=== PATIENT | male | born 1945 | race Caucasian/White ===

== ENCOUNTER 2016-12-16 19:31 | Inpatient (IN) | payer OTHER, MEDICARE ==
[~2016-12-16] VITALS: Ht 167.6 cm; Wt 122.3 kg
[2016-12-16 19:31] VITALS: BP 106/55; PULSE 79; PULSE 82; RESP 16; TEMP 99; O2SAT 95; O2SAT 98
[~2016-12-16 19:31] MED LIST: ALBU6.7H INH; ENOX30P SQ; ESCI10TA PO; FERR1TAB36 PO; GABA600T PO; HYDR-3133 PO; HYDR-3533 PO; LANTUS2P SQ; LISI40TA PO; METO50TA PO; MULTTAB62 PO; NOVORP2 SQ; PRIL20CA9 PO; TAMS0.4C4 PO; VANC1SOL3 PO; [UNRECOGNIZED DRUG - CODE] TOPICAL
[2016-12-16] MEDS ORDERED: SODIUM CHLOR 0.9% 1000 ML INJ 800 ML IV ONE (19:38)
[2016-12-16] MEDS ORDERED: SODIUM CHLOR 0.9% 1000 ML INJ 1,000 ML IV ONE (19:38)
[2016-12-16] MEDS ORDERED: metroNIDAZOLE 500 MG INJ 100 ML IV ONE (19:45)
--- NOTE | 2016-12-16 19:50 | PD ---
HPI Chief Complaint: Altered Mental Status Time Seen by Provider: 19:35 Travel History International Travel<30 days: No Contact w/Intl Traveler<30days: No Traveled to known affect area: No History of Present Illness HPI 71-year-old male with history of diabetes, chronic kidney disease, anemia, hyperlipidemia, chronic George, recent diagnosis of C. difficile on vancomycin, sent in from rehabilitation facility for evaluation of altered mental status, melena, abdominal pain and distention, and anemia with a hemoglobin of 5.7. The patient reports having abdominal discomfort. He is otherwise unwilling/ unable to provide any further history. PFSH Past Medical History Hx Anticoagulant Therapy: No Anemia: Yes Arthritis: Yes Asthma: No Autoimmune Disease: No Blood Disorders: No Anxiety: No Depression: No Heart Rhythm Problems: No Cancer: No Cardiovascular Problems: Yes (HTN) High Cholesterol: Yes Chemotherapy: No Chest Pain: No Congestive Heart Failure: No COPD: No Cerebrovascular Accident: No Diabetes: Yes (TYPE 2) Diminished Hearing: No Endocrine: Yes Gastrointestinal Disorders: Yes (GERD) GERD: Yes Genitourinary: No Headaches: No Hiatal Hernia: No Hypertension: Yes Immune Disorder: No Implanted Vascular Access Dvce: No Musculoskeletal: Yes (ARTHRITIS) Neurologic: No Psychiatric: Yes Reproductive: No Respiratory: Yes (ASTHMA) Integumentary: Yes (Stasis ulcer to BLE) Immunizations Current: Yes Migraines: No Pancreatitis: Yes Radiation Therapy: No Seizures: No Shingles: Yes (08/17/12) Sleep Apnea: No Thyroid Disease: No Ulcer: No Past Surgical History Abdominal Surgery: Yes (lap shirlene) Cardiac Surgery: No Cholecystectomy: Yes Ear Surgery: No Endocrine Surgery: No Eye Surgery: No Genitourinary Surgery: No Gynecologic Surgery: No Neurologic Surgery: No Oral Surgery: No Thoracic Surgery: No Other Surgery: Yes (Lap shirlene) Social History Alcohol Use: No Tobacco Use: No Substance Use: No Allergies-Medications (Allergen,Severity, Reaction): Coded Allergies: Azithromycin (Verified Allergy, Severe, Rash/hives, 12/16/16) Toradol (Verified Allergy, Severe, Hives, 12/16/16) Tramadol (Verified Allergy, Intermediate, RASH/HIVES, 12/16/16) Cipro (Verified Allergy, Unknown, 12/16/16) Ativan (Verified Adverse Reaction, Severe, Agitation, combative, 12/16/16) Flu Vaccine (Verified Adverse Reaction, Severe, Chest pain, 12/16/16) Reported Meds & Prescriptions Reported Meds & Active Scripts Active Lortab (Hydrocodone-Acetaminophen) 5-325 Mg Tab 1 Tab PO Q4H PRN Lovenox Inj (Enoxaparin Sodium) 30 Mg/0.3 Ml Syr 30 Mg SQ Q24H 10 Days Lantus Inj (Insulin Glargine) 100 Unit/Ml Inj 35 Units SQ BIDAC 90 Days Reported Florastor (Saccharomyces Boulardii) 250 Mg Cap 250 Mg PO BID Loperamide (Loperamide HCl) 2 Mg Cap 2 Mg PO DIRECTED PRN One capsule after each loose stool. Not to exceed 8 capsules per day. Doxycycline Hyclate 100 Mg Cap 100 Mg PO BID Colace (Docusate Sodium) 100 Mg Cap 100 Mg PO TID PRN Bumex (Bumetanide) 1 Mg Tab 1 Mg PO BID Aspirin 81 Mg Chew 81 Mg CHEW DAILY Balmex Adult Care (Zinc Oxide (Topical)) 11.3 % Cre 1 Applic TOPICAL Q8HR Apply to excoriated area on sacrum q-shift First-Vancomycin 50 Liq (Vancomycin HCl) 50 Mg/Ml Danielle 250 Mg PO QID 10 Days Proventil Hfa 6.7 GM Inh (Albuterol Sulfate) 90 Mcg/Act Aer 2 Puff INH Q6H PRN Prilosec (Omeprazole) 20 Mg Cap 20 Mg PO DAILY Multi-Vitamin/Minerals (Multiple Vitamins W/ Minerals) 1 Tab Tab 1 Tab PO DAILY Iron (Ferrous Sulfate) 325 Mg Tab 325 Mg PO BID In the am & at bedtime Escitalopram (Escitalopram Oxalate) 10 Mg Tab 10 Mg PO DAILY Hydroxyzine HCl 25 Mg Tab 25 Mg PO Q6HR PRN Novolin R Inj (Insulin Human Regular) 1,000 Unit/10 Ml Vial 0 SQ DIRECTED Sliding Scale As Directed: 60-149=0 UNITS, 150-200=2 UNITS, 201-250=4 UNITS, 251-300=6 UNITS, 301-350=8 UNITS, 351-400=10 UNITS, 401-450=12 UNITS, 451-500=14 UNITS, 501+=18 UNITS & CALL Lisinopril 40 Mg Tab 40 Mg PO DAILY Metoprolol Tartrate 50 Mg Tab 50 Mg PO BID Gabapentin 600 Mg Tab 600 Mg PO TID Tamsulosin (Tamsulosin HCl) 0.4 Mg Cap 0.4 Mg PO HS Review of Systems Except as stated in HPI: all other systems reviewed are Neg Physical Exam Narrative GENERAL: Well-developed, well-nourished, obese, awake, alert, no acute distress. SKIN: Warm and dry. Diffuse pallor. HEAD: Atraumatic. Normocephalic. EYES: Pupils equal and round. No scleral icterus. No injection or drainage. ENT: No nasal bleeding or discharge. Mucous membranes pink and moist. NECK: Trachea midline. No JVD. No nuchal rigidity. CARDIOVASCULAR: Tachycardic, regular. RESPIRATORY: No accessory muscle use. Clear to auscultation. Breath sounds equal bilaterally. GASTROINTESTINAL: Abdomen soft, nondistended. Mild diffuse tenderness without peritoneal signs. Heme positive black stool. MUSCULOSKELETAL: No obvious deformities. No clubbing. No cyanosis. Mild bilateral pedal edema with wound dressings in place, mild erythema, no warmth, no purulence. NEUROLOGICAL: Awake and alert. No obvious cranial nerve deficits. Motor grossly within normal limits. Normal speech. Data Data Last Documented VS Vital Signs Date Time Temp Pulse Resp B/P Pulse Ox O2 Delivery O2 Flow Rate FiO2 12/16/16 19:31 99.0 82 16 106/55 95 12/16/16 19:31 Nasal Cannula 2 Orders Complete Blood Count With Diff (12/16/16 19:38) Comprehensive Metabolic Panel (12/16/16 19:38) Prothrombin Time / Inr (Pt) (12/16/16 19:38) Act Partial Throm Time (Ptt) (12/16/16 19:38) Lactic Acid Sepsis Protocol (12/16/16 19:38) Lipase (12/16/16 19:38) Urinalysis - C+S If Indicated (12/16/16 19:38) Blood Culture (12/16/16 19:38) Chest, Single Ap (12/16/16 19:38) Ecg Monitoring (12/16/16 19:38) Iv Access Insert/Monitor (12/16/16 19:38) Oximetry (12/16/16 19:38) Oxygen Administration (12/16/16 19:38) Sodium Chlor 0.9% 1000 Ml Inj (Ns 1000 M (12/16/16 19:38) Sodium Chlor 0.9% 1000 Ml Inj (Ns 1000 M (12/16/16 19:38) Ct Abd/Pel W/O Iv Contrast (12/16/16 ) Type And Screen (12/16/16 19:38) C Diff Toxin Pcr (12/16/16 19:38) Metronidazole 500 Mg Inj (Flagyl 500 Mg (12/16/16 19:45) Ct Brain W/O Iv Contrast(Rout) (12/16/16 ) Ceftriaxone Inj (Rocephin Inj) (12/16/16 20:15) Urine Culture (12/16/16 20:00) Admit Order (Ed Use Only) (12/16/16 21:01) Red Blood Cells (Rbc) (12/16/16 21:03) Blood Product Administration .UPON TRANSFUSION (12/16/16 21:03) Sodium Chlor 0.9% 250 Ml Inj (Ns 250 Ml (12/16/16 21:15) Labs Laboratory Tests Test 12/16/16 12/16/16 19:50 20:00 White Blood Count 6.3 TH/MM3 Red Blood Count 2.18 MIL/MM3 Hemoglobin 6.2 GM/DL Hematocrit 18.7 % Mean Corpuscular Volume 85.8 FL Mean Corpuscular Hemoglobin 28.2 PG Mean Corpuscular Hemoglobin 32.9 % Concent Red Cell Distribution Width 19.7 % Platelet Count 104 TH/MM3 Mean Platelet Volume 8.8 FL Neutrophils (%) (Auto) 66.5 % Lymphocytes (%) (Auto) 20.0 % Monocytes (%) (Auto) 10.7 % Eosinophils (%) (Auto) 1.9 % Basophils (%) (Auto) 0.9 % Neutrophils # (Auto) 4.2 TH/MM3 Lymphocytes # (Auto) 1.3 TH/MM3 Monocytes # (Auto) 0.7 TH/MM3 Eosinophils # (Auto) 0.1 TH/MM3 Basophils # (Auto) 0.1 TH/MM3 CBC Comment AUTO DIFF Prothrombin Time 15.3 SEC Prothromb Time International 1.4 RATIO Ratio Activated Partial 33.5 SEC Thromboplast Time Sodium Level 147 MEQ/L Potassium Level 3.5 MEQ/L Chloride Level 108 MEQ/L Carbon Dioxide Level 29.9 MEQ/L Anion Gap 9 MEQ/L Blood Urea Nitrogen 70 MG/DL Creatinine 1.75 MG/DL Estimat Glomerular Filtration 39 ML/MIN Rate Random Glucose 206 MG/DL Lactic Acid Level 1.6 mmol/L Calcium Level 8.1 MG/DL Aspartate Amino Transf 90 U/L (AST/SGOT) Albumin 1.8 GM/DL Lipase 411 U/L Blood Type O POSITIVE Antibody Screen NEGATIVE Urine Color YELLOW Urine Turbidity CLOUDY Urine pH 8.0 Urine Specific [place] 1.018 Urine Protein 100 mg/dL Urine Glucose (UA) NEG mg/dL Urine Ketones NEG mg/dL Urine Occult Blood NEG Urine Nitrite POS Urine Bilirubin NEG Urine Urobilinogen LESS THAN 2.0 MG/DL Urine Leukocyte Esterase LARGE Urine RBC 1 /hpf Urine WBC 19 /hpf Urine WBC Clumps FEW Urine Squamous Epithelial <1 /hpf Cells Urine Uric Acid Crystals OCC /hpf Urine Bacteria MOD /hpf Urine Mucus FEW /lpf Microscopic Urinalysis Comment CATH-CULTURE IND MDM Medical Decision Making Medical Screen Exam Complete: Yes Emergency Medical Condition: Yes Medical Record Reviewed: Yes Differential Diagnosis Sepsis, C. difficile colitis, anemia, GI bleed, intra-abdominal infection Narrative Course Vital signs reviewed. CBC is remarkable for hemoglobin 6.2, hematocrit 18.7 CMP is remarkable for sodium 147, BUN 70, creatinine 1.75, GFR 39. Lactic acid is 1.6. UA suggestive of UTI. Chest x-ray shows bilateral hilar infiltrates. The patient was given a dose of IV Flagyl for history of C. difficile as well as IV Rocephin for her UA findings and chest x-ray findings. CT abdomen pelvis: CONCLUSION: 1. Noncontrast CT concerning for hepatic metastatic disease. Also suspected metastatic disease or renal failure associated changes of the bones. 2. No obstruction or acute inflammatory changes seen of the gastrointestinal tract. I don't convincingly see a GI tract mass. 3. Stable low and intermediate attenuation masses of both kidneys. Please see above. 4. Right greater the left consolidation and pleural fluid of the visualized lung bases. CT head shows no acute intracranial abnormality. 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 Paranasal sinusitis as well. Patient will be transfused 2 units of packed red blood cells. Case discussed with the patient's primary care physician Dr. Stallings who will admit the patient to his service. Patient and the patient's were made aware of all findings and plan for admission. [facility] Point of Care Internal Pos. & Neg. Controls: Passed Fecal Specimen Occult Blood: Positive Comment Heme-positive black stool. Diagnosis Primary Impression: Sepsis Qualified Code: A41.9 - Sepsis, due to unspecified organism Additional Impressions: Anemia Qualified Code: D64.9 - Anemia, unspecified type Pneumonia Qualified Code: J18.9 - Pneumonia of both lungs due to infectious organism, unspecified part of lung GI bleed Qualified Code: K92.1 - Gastrointestinal hemorrhage with melena Metastatic disease Mastoiditis Qualified Code: H70.92 - Mastoiditis, left Admitting Information Admitting Physician Requests: Admit Jose Jasmine MD Dec 16, 2016 19:50
--- NOTE | 2016-12-16 20:04 | RADRPT ---
EXAM DATE/TIME: 12/16/2016 19:50 [facility] COMPARISON: CHEST SINGLE AP, November 08, 2016, 5:02. INDICATIONS : Fever MEDICAL HISTORY : Hypertension. Gastroesophageal reflux disease. SURGICAL HISTORY : None. ENCOUNTER: Initial ACUITY: 1 day PAIN SCORE: Non-responsive. LOCATION: Bilateral chest FINDINGS: There are mild bilateral perihilar infiltrates. No pleural effusion. No pneumothorax. Heart size stab le, upper limits of normal. CONCLUSION: Perihilar infiltrates on both sides. Sunny Zamarripa MD on December 16, 2016 at 20:02 Board Certified Radiologist. This report was verified electronically.
[2016-12-16] MEDS ORDERED: DOXY100C PO (20:12)
[2016-12-16] MEDS ORDERED: FLOR250C PO (20:12)
[2016-12-16] MEDS ORDERED: LOPE2CAP PO (20:12)
[2016-12-16] MEDS ORDERED: BUME1TAB26 PO (20:12)
[2016-12-16] MEDS ORDERED: COLA100C3 PO (20:12)
[2016-12-16] MEDS ORDERED: ASPI81CH CHEW (20:12)
[2016-12-16] MEDS ORDERED: cefTRIAXone INJ 1,000 MG in SODIUM CHLORIDE 0.9% INJ 100 ML IV ONE (20:15)
[2016-12-16 20:28] LABS: AUTOMATED NEUTROPHIL # 4.2 TH/MM3 (1.8-7.7); BASOPHIL # 0.1 TH/MM3 (0-0.2); BASOPHIL % 0.9 % (0.0-2.0); EOSINOPHIL # 0.1 TH/MM3 (0-0.4); EOSINOPHIL % 1.9 % (0.0-4.0); LYMPHOCYTE # 1.3 TH/MM3 (1.0-4.8); MEAN CELL VOLUME 85.8 FL (80.0-100.0); MEAN CORPUSCULAR HEMOGLOBIN 28.2 PG (27.0-34.0); MEAN CORPUSCULAR HGB CONC 32.9 % (32.0-36.0); MONO % 10.7 % (0.0-8.0); NEUT % 66.5 % (16.0-70.0); PLATELET COUNT 104 TH/MM3 (150-450); RED BLOOD COUNT 2.18 MIL/MM3 (4.50-5.90); RED CELL DISTRIBUTION WIDTH 19.7 % (11.6-17.2); WHITE BLOOD COUNT 6.3 TH/MM3 (4.0-11.0)
[2016-12-16 20:33] LABS: BACTERIA, URINE MOD /hpf; BLOOD, URINE NEG (NEG); COMMENT (UR) CATH-CULTURE IND; CULTURE IF INDICATED CATH CULTURE IND; GLUCOSE,URINE NEG (NEG); KETONE, URINE NEG (NEG); MUCUS URINE FEW /lpf (OCC); NITRITE,URINE POS (NEG); SQUAMOUS EPITHELIAL CELL URINE <1 /hpf (0-5); URIC ACID CRYSTALS, URINE OCC /hpf; URINE COLOR YELLOW (YELLW/STRAW)
[2016-12-16 20:33] LABS: HEMO FLAGS AUTO DIFF
[2016-12-16 20:35] LABS: APTT (PATIENT) 33.5 SEC (24.3-30.1); HEMATOCRIT 18.7 % (39.0-51.0); INTERNATIONAL NORMALIZED RATIO 1.4 RATIO; PROTHROMBIN TIME - PATIENT 15.3 SEC (9.8-11.6)
[2016-12-16 20:50] LABS: ANION GAP 9 MEQ/L (5-15); AST (GOT) 90 U/L (15-37); BICARBONATE 29.9 MEQ/L (21.0-32.0); BLOOD UREA NITROGEN 70 MG/DL (7-18); CHLORIDE 108 MEQ/L (98-107); GLOMERULAR FILTRATION RATE 39 ML/MIN (>89); POTASSIUM 3.5 MEQ/L (3.5-5.1); SODIUM (NA) 147 MEQ/L (136-145)
--- NOTE | 2016-12-16 20:51 | RADRPT ---
EXAM DATE/TIME: 12/16/2016 20:37 [facility] COMPARISON: No previous studies available for comparison. INDICATIONS : Altered mental status RADIATION DOSE: 45.03 CTDIvol (mGy) MEDICAL HISTORY : Hypertension. SURGICAL HISTORY : Cholecystectomy. ENCOUNTER: Initial ACUITY: 1 day PAIN SCALE: 0/10 LOCATION: Bilateral cranial TECHNIQUE: Multiple contiguous axial images were obtained of the head. Using automated exposure control and adj ustment of the mA and/or kV according to patient size, radiation dose was kept as low as reasonably a chievable to obtain optimal diagnostic quality images. FINDINGS: CEREBRUM: The ventricles are normal for age. No evidence of midline shift, mass lesion, hemorrhage or acute in farction. No extra-axial fluid collections are seen. POSTERIOR FOSSA: The cerebellum and brainstem are intact. The 4th ventricle is midline. The cerebellopontine angle i s unremarkable. EXTRACRANIAL: Mild sclerosis left mastoid bone and small fluid in the left mastoid air cells. There is mucoperioste al thickening of the sinuses, preferentially ethmoid and left sphenoid air cells. SKULL: The calvaria is intact. No evidence of skull fracture. CONCLUSION: 1. No acute intracranial abnormality. 2. 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 There is paranasal sinusitis as well, ethmoid and left sphenoid predominant Sunny Zamarripa MD on December 16, 2016 at 20:47 Board Certified Radiologist. This report was verified electronically.
--- NOTE | 2016-12-16 21:03 | RADRPT ---
EXAM DATE/TIME: 12/16/2016 20:42 [facility] COMPARISON: CT ABDOMEN & PELVIS W/O CONTRAST, November 06, 2016, 5:45. INDICATIONS : Septic, blood in stool ORAL CONTRAST: No oral contrast ingested. RADIATION DOSE: 12.52 CTDIvol (mGy) MEDICAL HISTORY : Hypertension. Pancreatitis. Renal disease, end stage. SURGICAL HISTORY : Cholecystectomy. ENCOUNTER: Initial ACUITY: 1 day PAIN SCALE: 3/10 LOCATION: Diffuse abdomen TECHNIQUE: Volumetric scanning of the abdomen and pelvis was performed. Using automated exposure control and ad justment of the mA and/or kV according to patient size, radiation dose was kept as low as reasonably achievable to obtain optimal diagnostic quality images. FINDINGS: Marked heterogeneity has developed of the liver and of concern for numerous vague hypodense masses me asuring up to 5 cm in size. Liver is about 23 cm cranial caudal, previously 19 cm. No acute abnormality seen spleen, pancreas, adrenal glands or kidneys. Multiple low and intermediate attenuation masses are again seen of both kidneys, not significantly changed and presumably simple an d debris-filled cysts. No obstruction or acute inflammatory changes are seen of the gastrointestinal tract. No perceptible m ass. Decompressed urinary bladder containing a George and debris. Small right and tiny left pleural effusions are present and there is mild atelectasis/consolidation o f the visualized lung bases. Diffuse mottled sclerosis seen of the visualized osseous structures whic h appears changed. CONCLUSION: 1. Noncontrast CT concerning for hepatic metastatic disease. Also suspected metastatic disease or sarita al failure associated changes of the bones. 2. No obstruction or acute inflammatory changes seen of the gastrointestinal tract. I don't convincin gly see a GI tract mass. 3. Stable low and intermediate attenuation masses of both kidneys. Please see above. 4. Right greater the left consolidation and pleural fluid of the visualized lung bases. Sunny Zamarripa MD on December 16, 2016 at 20:53 Board Certified Radiologist. This report was verified electronically.
[2016-12-16 21:05] LABS: ALKALINE PHOSPHATASE 1060 U/L (45-117); ALT (GPT) 65 U/L (12-78); TOTAL BILIRUBIN ADULT 0.5 MG/DL (0.2-1.0)
[2016-12-16] MEDS ORDERED: SODIUM CHLOR 0.9% 250 ML INJ 250 ML IV ONE (21:15)
[2016-12-16 21:16] LABS: BANDS 9 % (0-6); CORRECTED NUCLEATED RBC 2 /100 WBC (0-0); EOSINOPHILS 1 % (0-4); METAMYELOCYTES 9 % (0-1); MYELOCYTES 1 % (0-0); NEUTROPHIL # MANUAL DIFF 4.5 TH/MM3 (1.8-7.7); POLYS (SEG NEUTROPHILS) 52 % (16-70); WBC DIFF SAMPLE 100
[2016-12-16 21:19] LABS: KERATOCYTES OCC (NORMAL); OVALOCYTES 1+ (NORMAL); PLATELET ESTIMATE SMEAR LOW (NORMAL); PLATELET MORPHOLOGY NORMAL (NORMAL); SCAN/DIFF FINAL DIFF MANUAL; SPHEROCYTES 1+ (NORMAL)
[2016-12-16] MEDS ORDERED: ACETAMINOPHEN/HYDROcodone 325 MG/5 MG TAB PO PRN (22:15)
[2016-12-16] MEDS ORDERED: SODIUM CHLOR 0.9% 1000 ML INJ 1,000 ML IV SCH (22:17)
[2016-12-16 22:30] VITALS: BP 116/53; PULSE 75; RESP 14; TEMP 98.5; O2SAT 100
[2016-12-16] MEDS ORDERED: ONDANSETRON HCL 4 MG/2 ML VIAL IVP PRN (22:30)
[2016-12-16] MEDS ORDERED: ACETAMINOPHEN 325 MG TAB PO PRN (22:30)
[2016-12-16] MEDS ORDERED: cloNIDine HCL 0.1 MG TAB PO PRN (22:30)
[2016-12-16] MEDS ORDERED: SODIUM CHLORIDE 0.9% FLUSH 5 ML FLUSH FLUSH PRN (22:30)
[2016-12-16] MEDS ORDERED: MAGNESIUM HYDROXIDE SUSP 30 ML CUP PO PRN (22:30)
[2016-12-16] MEDS ORDERED: NALOXONE HCL 0.4 MG/ML AMP IV PRN (22:30)
[2016-12-16] MEDS ORDERED: SENNOSIDES 8.6 MG TAB PO PRN (22:30)
[2016-12-16] MEDS ORDERED: ZOLPIDEM TARTRATE 5 MG TAB PO PRN (22:30)
[2016-12-16 22:45] VITALS: BP 119/60; PULSE 80; RESP 16; O2SAT 98
[2016-12-16 23:00] VITALS: BP 108/58; PULSE 78; RESP 16; O2SAT 98
[2016-12-16 23:15] VITALS: BP 115/65; PULSE 80; RESP 16; O2SAT 98
[2016-12-16 23:30] VITALS: BP 119/56; PULSE 78; RESP 16; O2SAT 98
[2016-12-16] MEDS: SODIUM CHLOR 0.45% 1000 ML INJ 1,000 ML IV SCH (23:32)
[2016-12-16] MEDS: PANTOPRAZOLE SODIUM 40 MG VIAL IV PUSH SCH (23:33)
[2016-12-17] VITALS (14 sets, daily range): BP systolic 110–151; BP diastolic 56–69; PULSE 50–85; RESP 14–21; TEMP 97.6–99.7; O2SAT 95–100
[2016-12-17] MEDS: PIPERACIL-TAZO 3.375 GM PREMIX 50 ML IV SCH ×5 (00:08→23:55)
[2016-12-17] MEDS ORDERED: LEVOFLOXACIN 750 MG PREMIX INJ 150 ML IV SCH (01:00)
[2016-12-17] MEDS ORDERED: SODIUM CHLORIDE 0.9% FLUSH 5 ML FLUSH IVF PRN (01:15)
[2016-12-17] MEDS: metroNIDAZOLE 500 MG INJ 100 ML IV SCH ×3 (04:00→20:22)
[2016-12-17] MEDS: ZINC OXIDE 20% OINT 30 GM TUBE TOPICAL SCH ×3 (06:00→20:20)
[2016-12-17] MEDS: RESP: ALBUTEROL 2.5 MG/IPRATROPIUM 0.5 MG NEB (SCH) NEB ×3 (07:55→19:37)
--- NOTE | 2016-12-17 08:50 | HHI.HP ---
History of Present Illness Primary Care Physician [facility] Admission Diagnosis sepsis, AMS, anemia Diagnoses: (1) Malignant hypertension (2) Urinary retention (3) Acute renal failure (4) Generalized weakness (5) Hyperlipidemia (6) Leukocytosis (7) UTI (urinary tract infection) (8) Obesity (9) HTN (hypertension) (10) Chronic venous hypertension with ulcer and inflammation (11) Diabetes type 2, uncontrolled (12) DOLORES (acute kidney injury) (13) Bladder outlet obstruction (14) Bilateral lower leg cellulitis (15) Hyponatremia (16) GERD (gastroesophageal reflux disease) (17) Bilateral lower extremity edema (18) Weakness (19) Mastoiditis (20) Pneumonia (21) GI bleed (22) Metastatic disease (23) Anemia History of Present Illness 71 Y CM. RECURRENT ADMITS AND NONCOMPLIANCE WITH CARE. PT HAS HAD ONGOING LEG CELLULITIS DUE TO MASSIVE EDEMA FROM REFUSAL TO ELEVATE LEGS. PT REFUSED GI WORKUPS. RECURRENT ANEMIA WITH GIB AND TRANSFUSION OF PRBC'S. PT HAS BEEN AT [facility] AND HAS HAD A GENERALIZED DECLINE. AMS NOTED AT THE SNF AND LABS AT SNF SHOWED HGB 6 APPROX AND PT SENT TO ER FOR TRANSFUSION. PT FOUND W METS DZ AND LYTE ABNORMALITIES, PNA AND UTI. RECENT ONGOING C DIF WELL. I WAS CALLED FOR ADMISSION TO THE ICU. Review of Systems ROS Limitations: Clinical Condition, Altered Mental Status, Uncooperative, Poor Historian Other NEGATIVE FOURTEEN POINT ROS EXCEPT ABOVE Past Family Social History Allergies: Coded Allergies: Azithromycin (Verified Allergy, Severe, Rash/hives, 12/16/16) Toradol (Verified Allergy, Severe, Hives, 12/16/16) Tramadol (Verified Allergy, Intermediate, RASH/HIVES, 12/16/16) Cipro (Verified Allergy, Unknown, 12/16/16) Ativan (Verified Adverse Reaction, Severe, Agitation, combative, 12/16/16) Flu Vaccine (Verified Adverse Reaction, Severe, Chest pain, 12/16/16) Past Medical History DM PAD DOLORES ANEMIA EDEMA Past Surgical History NC Active Ordered Medications Current Medications Medications (Trade) Dose Ordered Sig/Siomara Route Start Time Stop Time Status Last Admin (NS 250 ml Inj) 250 ml @ 15 mls/hr ONCE ONCE IV 12/16/16 21:15 12/17/16 13:54 12/16/16 23:33 (Bumetanide) 1 mg BID PO 12/17/16 09:00 (Flomax) 0.4 mg HS PO 12/17/16 21:00 (VANCOMYCIN for oral use only) 250 mg QID PO 12/17/16 09:00 (Zinc Oxide 20% Oint) 1 applic Q8HR TOPICAL 12/17/16 06:00 (NS Flush) 2 ml UNSCH PRN FLUSH 12/16/16 22:30 (NS Flush) 2 ml BID FLUSH 12/17/16 09:00 (Tylenol) 650 mg Q4H PRN PO 12/16/16 22:30 (Zofran Inj) 4 mg Q6H PRN IVP 12/16/16 22:30 (Milk Of Magnesia Liq) 30 ml Q12H PRN PO 12/16/16 22:30 (Senokot) 17.2 mg Q12H PRN PO 12/16/16 22:30 (Ambien) 5 mg HS PRN PO 12/16/16 22:30 (Narcan Inj) 0.4 mg UNSCH PRN IV 12/16/16 22:30 (Catapres) 0.1 mg Q6H PRN PO 12/16/16 22:30 ([place] 5-325 Mg) 1 tab Q4H PRN PO 12/16/16 22:30 Pantoprazole Sodium 40 mg 40 mg Q24H IV PUSH 12/16/16 23:00 12/16/16 23:33 Metronidazole 100 ml @ 100 mls/hr Q8H IV 12/17/16 04:00 12/17/16 04:00 Sodium Chloride 1,000 ml @ 42 mls/hr [id number] IV 12/16/16 22:45 12/16/16 23:32 (Zosyn 3.375 Gm Premix) 50 ml @ 100 mls/hr Q6H IV 12/17/16 00:00 12/17/16 06:00 (NS Flush) 2 ml BID IVF 12/17/16 09:00 (NS Flush) 2 ml UNSCH PRN IVF 12/17/16 01:15 Family History NC Social History NO E/T/D; DISABLED, Physical Exam Vital Signs Vital Signs Date Time Temp Pulse Resp B/P Pulse Ox O2 Delivery O2 Flow Rate FiO2 12/17/16 08:03 100 Nasal Cannula 2.00 12/17/16 06:00 73 12/17/16 04:00 70 12/17/16 04:00 98.0 70 18 131/61 100 12/17/16 02:30 71 16 121/59 95 Nasal Cannula 2 12/17/16 02:00 96 Nasal Cannula 2.00 12/17/16 01:30 98.9 50 14 119/58 96 Nasal Cannula 2 12/17/16 01:08 98.9 79 16 138/63 96 Nasal Cannula 2 12/16/16 23:30 78 16 119/56 98 Nasal Cannula 2 12/16/16 23:15 80 16 115/65 98 Nasal Cannula 2 12/16/16 23:00 78 16 108/58 98 Nasal Cannula 2 12/16/16 22:45 80 16 119/60 98 Nasal Cannula 2 12/16/16 22:30 98.5 75 14 116/53 100 Nasal Cannula 2 12/16/16 19:31 99.0 82 16 106/55 95 12/16/16 19:31 82 16 98 Nasal Cannula 2 12/16/16 19:31 98 Nasal Cannula 2 12/16/16 19:31 79 16 106/55 98 Nasal Cannula 2 Physical Exam GENERAL: This is a chronically ill appearing, morbidly obese, lethargic, arouses to voice SKIN: cellulitic and stasis changes bilateral lower extr's HEAD: Atraumatic. Normocephalic. No temporal or scalp tenderness. EYES: Pupils equal round and reactive. Extraocular motions intact. No scleral icterus. No injection or drainage. ENT: Nose without bleeding, purulent drainage or septal hematoma. Throat without erythema, tonsillar hypertrophy or exudate. Uvula midline. Airway patent. NECK: Trachea midline. No JVD or lymphadenopathy. Supple, nontender, no meningeal signs. CARDIOVASCULAR: Regular rate and rhythm without murmurs, gallops, or rubs. RESPIRATORY: Clear to auscultation. Breath sounds equal bilaterally. No wheezes , rales, or rhonchi. GASTROINTESTINAL: Abdomen soft, non-tender, nondistended. No hepato-splenomegaly , or palpable masses. No guarding. MUSCULOSKELETAL: Extremities without clubbing, cyanosis, or edema. No joint tenderness, effusion, or edema noted. No calf tenderness. Negative Homans sign bilaterally. NEUROLOGICAL: drowsy, Cranial nerves II through XII intact. Motor and sensory grossly within normal limits. 1 out of 5 muscle strength in all muscle groups. Normal speech. Laboratory Laboratory Tests Test 12/16/16 12/16/16 12/16/16 19:50 20:00 21:03 White Blood Count 6.3 Red Blood Count 2.18 Hemoglobin 6.2 Hematocrit 18.7 Mean Corpuscular Volume 85.8 Mean Corpuscular Hemoglobin 28.2 Mean Corpuscular Hemoglobin 32.9 Concent Red Cell Distribution Width 19.7 Platelet Count 104 Mean Platelet Volume 8.8 Neutrophils (%) (Auto) 66.5 Lymphocytes (%) (Auto) 20.0 Monocytes (%) (Auto) 10.7 Eosinophils (%) (Auto) 1.9 Basophils (%) (Auto) 0.9 Neutrophils # (Auto) 4.2 Lymphocytes # (Auto) 1.3 Monocytes # (Auto) 0.7 Eosinophils # (Auto) 0.1 Basophils # (Auto) 0.1 CBC Comment AUTO DIFF Differential Total Cells 100 Counted Neutrophils % (Manual) 52 Band Neutrophils % 9 Lymphocytes % 22 Monocytes % 6 Eosinophils % 1 Neutrophils # (Manual) 4.5 Metamyelocytes 9 Myelocytes 1 Nucleated Red Blood Cells 2 Differential Comment FINAL DIFF MANUAL Platelet Estimate LOW Platelet Morphology Comment NORMAL Basophilic Stippling FAINT Spherocytes 1+ Ovalocytes 1+ Keratocytes OCC Prothrombin Time 15.3 Prothromb Time International 1.4 Ratio Activated Partial 33.5 Thromboplast Time Sodium Level 147 Potassium Level 3.5 Chloride Level 108 Carbon Dioxide Level 29.9 Anion Gap 9 Blood Urea Nitrogen 70 Creatinine 1.75 Estimat Glomerular Filtration 39 Rate Random Glucose 206 Lactic Acid Level 1.6 Calcium Level 8.1 Total Bilirubin 0.5 Aspartate Amino Transf 90 (AST/SGOT) Alanine Aminotransferase 65 (ALT/SGPT) Alkaline Phosphatase 1060 Total Protein 6.3 Albumin 1.8 Lipase 411 Blood Type O POSITIVE Antibody Screen NEGATIVE Urine Color YELLOW Urine Turbidity CLOUDY Urine pH 8.0 Urine Specific [place] 1.018 Urine Protein 100 Urine Glucose (UA) NEG Urine Ketones NEG Urine Occult Blood NEG Urine Nitrite POS Urine Bilirubin NEG Urine Urobilinogen LESS THAN 2.0 Urine Leukocyte Esterase LARGE Urine RBC 1 Urine WBC 19 Urine WBC Clumps FEW Urine Squamous Epithelial <1 Cells Urine Uric Acid Crystals OCC Urine Bacteria MOD Urine Mucus FEW Microscopic Urinalysis Comment CATH-CULTURE IND Crossmatch Leukocyte-Reduced Red Blood Cells Blood Bank Comment Date/Time Procedure Status Source Growth 12/16/16 20:00 Urine Culture Worksheet Urine Catheterized Urine Pending 12/16/16 19:55 Aerobic Blood Culture Received Blood Peripheral Pending 12/16/16 19:55 Anaerobic Blood Culture Received Blood Peripheral Pending Result Diagram: 12/16/16194912/16/16 1950 Imaging Last 48 hours Impressions Chest X-Ray 12/16/161937 Signed Impressions: Service Date/Time: Friday, December 16, 2016 19:50 - CONCLUSION: Perihilar infiltrates on both sides. Sunny Zamarripa MD Head CT 12/16/16 0000 Signed Impressions: Service Date/Time: Friday, December 16, 2016 20:37 - CONCLUSION: 1. No acute intracranial abnormality. 2. 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 There is paranasal sinusitis as well, ethmoid and left sphenoid predominant Sunny Zamarripa MD Abdomen/Pelvis CT 12/16/16 0000 Signed Impressions: Service Date/Time: Friday, December 16, 2016 20:42 - CONCLUSION: 1. Noncontrast CT concerning for hepatic metastatic disease. Also suspected metastatic disease or renal failure associated changes of the bones. 2. No obstruction or acute inflammatory changes seen of the gastrointestinal tract. I don't convincingly see a GI tract mass. 3. Stable low and intermediate attenuation masses of both kidneys. Please see above. 4. Right greater the left consolidation and pleural fluid of the visualized lung bases. Sunny Zamarripa MD Last 24 hours Impressions Chest X-Ray 12/16/161937 Signed Impressions: Service Date/Time: Friday, December 16, 2016 19:50 - CONCLUSION: Perihilar infiltrates on both sides. Sunny Zamarripa MD Assessment and Plan Problem List: (1) GI bleed Status: Acute (2) Pneumonia Status: Acute (3) Mastoiditis Status: Acute (4) Bilateral lower leg cellulitis Status: Resolved (5) Malignant hypertension Status: Resolved (6) Urinary retention Status: Acute (7) Acute renal failure Status: Acute (8) Generalized weakness Status: Acute (9) CRF (chronic renal failure) Status: Chronic (10) UTI (urinary tract infection) Status: Acute (11) Obesity Status: Chronic (12) HTN (hypertension) Status: Chronic (13) Chronic venous hypertension with ulcer and inflammation Status: Chronic (14) Diabetes type 2, uncontrolled Status: Chronic (15) Urinary tract infection Status: Acute (16) Abdominal pain Status: Acute (17) Metastatic disease Status: Acute (18) Anemia Status: Acute (19) Weakness Status: Acute Assessment and Plan AMS FTT LIVER METS ?COLON CA ?RENAL METS GIB BLOOD LOSS ANEMIA UTI HCAP DM BLE CELLULITIS PLAN: IV ABX IVF BLOOD CULTURES UA C/S PROTONIX IV TRANSFUSE PRBC'S INSULIN PALLIATIVE CONSULT ONCOLOGY CONSULT GI CONSULT AM LABS SEE MY ORDERS PLEASE. INPT ADMIT FOR THE ABOVE DX AND PLAN. EXPECT 5 D INPT STAY. PT WOULD W/O INPT ADMIT. DC BACK TO SNF PLANNED, NEEDS HOSPICE YET PT AND HAVE HAD POOR UNDERSTANDING OF HIS MULTIPLE SEVERE CHRONIC ILLNESSES COMPLICATED BY HIS NONCOMPLIANCE. Problem Qualifiers (1) Mastoiditis: Qualified Code: H70.92 - Mastoiditis, left (2) Pneumonia: Qualified Code: J18.9 - Pneumonia of both lungs due to infectious organism, unspecified part of lung (3) GI bleed: Qualified Code: K92.1 - Gastrointestinal hemorrhage with melena (4) Anemia: Qualified Code: D64.9 - Anemia, unspecified type Yon Stallings MD Dec 17, 2016 08:50
[2016-12-17] MEDS ORDERED: DEXTROSE 50% IN WATER 50 ML VIAL(D50) IV PUSH PRN (09:00)
[2016-12-17] MEDS: VANCOMYCIN 500 MG VIAL (FOR ORAL USE ONLY) PO SCH ×5 (09:00→20:20)
[2016-12-17] MEDS: SODIUM CHLORIDE 0.9% FLUSH 5 ML FLUSH IVF SCH ×2 (09:00→20:22)
[2016-12-17] MEDS ORDERED: METOPROLOL TARTRATE 50 MG TAB PO SCH (09:00)
[2016-12-17] MEDS: BUMETANIDE 1 MG TAB PO SCH ×3 (09:00→20:22)
[2016-12-17] MEDS ORDERED: GLUCAGON 1 MG/ML VIAL OTHER PRN (09:00)
[2016-12-17] MEDS: SODIUM CHLORIDE 0.9% FLUSH 5 ML FLUSH FLUSH SCH ×2 (09:00→20:22)
--- NOTE | 2016-12-17 09:10 | PD.CONS ---
HPI History of Present Illness This is a 71 year old male patient with past medical history of chronic anemia, CKD, poorly controlled DM, non compliance with medical treatment, metabolic encephalopathy, CAD, bilateral leg cellulitis, hypertension, obesity, chronic George catheter, neuropathy, depression, recent diagnosis of C. difficile on vancomycin, sent in from rehabilitation facility for evaluation of altered mental status, melena, abdominal pain and distention, and anemia with a hemoglobin of 5.7. Patient was seen by our GI services at a recent admission in October of last year, at that time he refused any GI work up including EGD/ Colonoscopy. Patient never had EGD/Colonoscopy, and he still refusing any GI work up. Patient is very bad historian, not offering much details, I was hardly able to get him to open his eyes during the entire interview. Patient himself denies any heartburn, reflux, vomiting, hematemesis, abdominal pain, bowel changes, constipation, diarrhea, melena, or hematochezia. Discussed with patient in lengthy the need for EGD/Colonoscopy, and the rationale for this but he is not interested at this time. Of note, during the previous encounter, he had work up done for the elevation in ALP, this revealed negative hepatitis panel, negative PABLITO, ASMA, AMA, and celiac panel. ALP isoenzymes revealed bones related elevation. Non contrasted Ct (12/16/16) concerning for hepatic metastatic disease. Also suspected metastatic disease or renal failure associated changes of the bones, no gastrointestinal tract masses seen. Previous CT on (11/16/16) didn't reveal any abnormalities. Hemodynamically stable, received 2 units of blood. Per nurse no obvious bleeding. On admission labs revealed hgb of 6.2, AST 90, ALT 65, [id number], bili 0.5 (Michelle Montes) PFSH Past Medical History C-diff DM, type 2 Morbid obesity Depression Chronic pedal edema HTN CKD CAD Anemia of chronic disease BPH, with urinary obstruction -chronic indwelling George use since May 2016 Asthma Bilateral legs cellulitis Neuropathy Past Surgical History Cholecystectomy Cystoscopy (Michelle Montes) Coded Allergies: Azithromycin (Verified Allergy, Severe, Rash/hives, 12/16/16) Toradol (Verified Allergy, Severe, Hives, 12/16/16) Tramadol (Verified Allergy, Intermediate, RASH/HIVES, 12/16/16) Cipro (Verified Allergy, Unknown, 12/16/16) Ativan (Verified Adverse Reaction, Severe, Agitation, combative, 12/16/16) Flu Vaccine (Verified Adverse Reaction, Severe, Chest pain, 12/16/16) Family History Father had DM type 2, heart failure and HTN Mother had dementia -92 y/o and alive Sister from MVA Social History No tobacco, etoh. (Michelle Montes) Review of Systems Constitutional: DENIES: Fever, Chills Endocrine: DENIES: Polyuria Ears, nose, mouth, throat: DENIES: Hoarseness Respiratory: DENIES: Shortness of breath Cardiovascular: COMPLAINS OF: Lower Extremity Edema Gastrointestinal: DENIES: Abdominal pain, Black stools, Bloody stools, Constipation, Diarrhea, Nausea, Vomiting, Difficulty Swallowing, Anorexia, Odynophagia, Swelling of Abdomen, Heartburn, Hematemesis Genitourinary: DENIES: Hematuria Musculoskeletal: DENIES: Neck pain Integumentary: DENIES: Jaundice Hematologic/lymphatic: DENIES: Bruising Immunologic/allergic: DENIES: Eczema Neurologic: DENIES: Abnormal gait Psychiatric: DENIES: Anxiety (Michelle Montes) GI Exam Vitals I&O Vital Signs Date Time Temp Pulse Resp B/P Pulse Ox O2 Delivery O2 Flow Rate FiO2 12/17/16 08:03 100 Nasal Cannula 2.00 12/17/16 06:00 73 12/17/16 04:00 70 12/17/16 04:00 98.0 70 18 131/61 100 12/17/16 02:30 71 16 121/59 95 Nasal Cannula 2 12/17/16 02:00 96 Nasal Cannula 2.00 12/17/16 01:30 98.9 50 14 119/58 96 Nasal Cannula 2 12/17/16 01:08 98.9 79 16 138/63 96 Nasal Cannula 2 12/16/16 23:30 78 16 119/56 98 Nasal Cannula 2 12/16/16 23:15 80 16 115/65 98 Nasal Cannula 2 12/16/16 23:00 78 16 108/58 98 Nasal Cannula 2 12/16/16 22:45 80 16 119/60 98 Nasal Cannula 2 12/16/16 22:30 98.5 75 14 116/53 100 Nasal Cannula 2 12/16/16 19:31 99.0 82 16 106/55 95 12/16/16 19:31 82 16 98 Nasal Cannula 2 12/16/16 19:31 98 Nasal Cannula 2 12/16/16 19:31 79 16 106/55 98 Nasal Cannula 2 I/O 12/16/16 12/16/16 12/16/16 12/17/16 12/17/16 12/17/16 07:00 15:00 23:00 07:00 15:00 23:00 Intake Total 1167 ml Output Total 400 ml Balance 767 ml Intake IV Total 331 ml Packed Cells 836 ml Output Urine Total 400 ml Stool Total 0 ml Imaging Last Impressions Chest X-Ray 12/16/16 193 Signed Impressions: Service Date/Time: Friday, December 16, 2016 19:50 - CONCLUSION: Perihilar infiltrates on both sides. Sunny Zamarripa MD Head CT 12/16/16 0000 Signed Impressions: Service Date/Time: Friday, December 16, 2016 20:37 - CONCLUSION: 1. No acute intracranial abnormality. 2. 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 There is paranasal sinusitis as well, ethmoid and left sphenoid predominant Sunny Zamarripa MD Abdomen/Pelvis CT 12/16/16 0000 Signed Impressions: Service Date/Time: Friday, December 16, 2016 20:42 - CONCLUSION: 1. Noncontrast CT concerning for hepatic metastatic disease. Also suspected metastatic disease or renal failure associated changes of the bones. 2. No obstruction or acute inflammatory changes seen of the gastrointestinal tract. I don't convincingly see a GI tract mass. 3. Stable low and intermediate attenuation masses of both kidneys. Please see above. 4. Right greater the left consolidation and pleural fluid of the visualized lung bases. Sunny Zamarripa MD Laboratory Test 12/16/16 12/16/16 12/16/16 19:50 20:00 21:03 White Blood Count 6.3 TH/MM3 Red Blood Count 2.18 MIL/MM3 Hemoglobin 6.2 GM/DL Hematocrit 18.7 % Mean Corpuscular Volume 85.8 FL Mean Corpuscular Hemoglobin 28.2 PG Mean Corpuscular Hemoglobin 32.9 % Concent Red Cell Distribution Width 19.7 % Platelet Count 104 TH/MM3 Mean Platelet Volume 8.8 FL Neutrophils (%) (Auto) 66.5 % Lymphocytes (%) (Auto) 20.0 % Monocytes (%) (Auto) 10.7 % Eosinophils (%) (Auto) 1.9 % Basophils (%) (Auto) 0.9 % Neutrophils # (Auto) 4.2 TH/MM3 Lymphocytes # (Auto) 1.3 TH/MM3 Monocytes # (Auto) 0.7 TH/MM3 Eosinophils # (Auto) 0.1 TH/MM3 Basophils # (Auto) 0.1 TH/MM3 CBC Comment AUTO DIFF Differential Total Cells 100 Counted Neutrophils % (Manual) 52 % Band Neutrophils % 9 % Lymphocytes % 22 % Monocytes % 6 % Eosinophils % 1 % Neutrophils # (Manual) 4.5 TH/MM3 Metamyelocytes 9 % Myelocytes 1 % Nucleated Red Blood Cells 2 /100 WBC Differential Comment FINAL DIFF MANUAL Platelet Estimate LOW Platelet Morphology Comment NORMAL Basophilic Stippling FAINT Spherocytes 1+ Ovalocytes 1+ Keratocytes OCC Prothrombin Time 15.3 SEC Prothromb Time International 1.4 RATIO Ratio Activated Partial 33.5 SEC Thromboplast Time Sodium Level 147 MEQ/L Potassium Level 3.5 MEQ/L Chloride Level 108 MEQ/L Carbon Dioxide Level 29.9 MEQ/L Anion Gap 9 MEQ/L Blood Urea Nitrogen 70 MG/DL Creatinine 1.75 MG/DL Estimat Glomerular Filtration 39 ML/MIN Rate Random Glucose 206 MG/DL Lactic Acid Level 1.6 mmol/L Calcium Level 8.1 MG/DL Total Bilirubin 0.5 MG/DL Aspartate Amino Transf 90 U/L (AST/SGOT) Alanine Aminotransferase 65 U/L (ALT/SGPT) Alkaline Phosphatase 1060 U/L Total Protein 6.3 GM/DL Albumin 1.8 GM/DL Lipase 411 U/L Blood Type O POSITIVE Antibody Screen NEGATIVE Urine Color YELLOW Urine Turbidity CLOUDY Urine pH 8.0 Urine Specific [place] 1.018 Urine Protein 100 mg/dL Urine Glucose (UA) NEG mg/dL Urine Ketones NEG mg/dL Urine Occult Blood NEG Urine Nitrite POS Urine Bilirubin NEG Urine Urobilinogen LESS THAN 2.0 MG/DL Urine Leukocyte Esterase LARGE Urine RBC 1 /hpf Urine WBC 19 /hpf Urine WBC Clumps FEW Urine Squamous Epithelial <1 /hpf Cells Urine Uric Acid Crystals OCC /hpf Urine Bacteria MOD /hpf Urine Mucus FEW /lpf Microscopic Urinalysis Comment CATH-CULTURE IND Crossmatch Leukocyte-Reduced Red Blood Cells Blood Bank Comment Date/Time Procedure Status Source Growth 12/16/16 20:00 Urine Culture Worksheet Urine Catheterized Urine Pending 12/16/16 19:55 Aerobic Blood Culture Received Blood Peripheral Pending 12/16/16 19:55 Anaerobic Blood Culture Received Blood Peripheral Pending Physical Examination HEENT: normocephalic; atraumatic; no jaundice. Throat is clear. NECK: Neck is supple, no JVD, no lymphadenopathy. CHEST: Chest is clear to auscultation and percussion. CARDIAC: Regular rate and rhythm with no murmur gallop or rubs. ABDOMEN: Soft, nondistended, obese, nontender; no hepatosplenomegaly; bowel sounds are present in all four quadrants. EXTREMITIES: BLE edema. 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 (Michelle Montes) Assessment and Plan Plan - Acute on chronic anemia with hgb of 6.2 on admission. He has received 2 units of PRBC, repeat hgb not done yet He has never had any GI workup for this such as EGD or Colonoscopy and he is refusing any GI work up, perviously evaluated by our GI service at an earlier encounter on (10/2016) and refused GI work up at that time as well. Patient denies GI symptoms including any signs of bleeding. Non contrasted CT (12/16/16) concerning for hepatic metastatic disease. Also suspected metastatic disease or renal failure associated changes of the bones, no gastrointestinal tract masses seen. Previous CT on (11/16/16) didn't reveal any abnormalities. Hemodynamically stable, received 2 units of blood. Per nurse no obvious bleeding. 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 - Elevated alkaline phosphatase. On admission labs revealed AST 90, ALT 65, [id number], bili 0.5. Work up during previous admission (10/2016) Hepatitis panel negative, celiac panel negative, AMA negative, ASMA negative, Alk phosph isoenzymes revealed bone related elevation . 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 - Fluid overload, HTN, Neuropathy, Depression per primary - S/P DNR status PLAN: - Heart healthy diet - Discussed with patient the need for EGD/Colonoscopy but patient refusing - AFP, CA19-9, CEA - Ammonia - Consider liver bx - PPI - Oncology consult - Cont. to monitor hh - Cont. to transfuse as needed - Pt seen and examined by Dr. Alexander and myself and this note is written on his behalf (Michelle Montes) Physician Comments Seen and examined with Ms. Jyoti LABOY,, gi consulted for anemia. He has had similar presentations in the past and refused gi alvarado. Still refusing. Discussed with palliative service, they are in touch with the to determine further course of action. Please notify GI if further alvarado needed. Thank you (Jackson Alexander MD) Michelle Montes Dec 17, 2016 09:10 Jackson Alexander MD Dec 17, 2016 12:12
[2016-12-17 09:11] LABS: AUTOMATED NEUTROPHIL # 5.6 TH/MM3 (1.8-7.7); BASOPHIL # 0.1 TH/MM3 (0-0.2); BASOPHIL % 1.1 % (0.0-2.0); EOSINOPHIL # 0.2 TH/MM3 (0-0.4); EOSINOPHIL % 2.9 % (0.0-4.0); HEMATOCRIT 24.4 % (39.0-51.0); HEMO FLAGS AUTO DIFF; LYMPH % 18.1 % (9.0-44.0); LYMPHOCYTE # 1.5 TH/MM3 (1.0-4.8); MEAN CELL VOLUME 89.9 FL (80.0-100.0); MEAN CORPUSCULAR HEMOGLOBIN 28.3 PG (27.0-34.0); MEAN CORPUSCULAR HGB CONC 31.5 % (32.0-36.0); MONO % 9.9 % (0.0-8.0); PLATELET COUNT 104 TH/MM3 (150-450); RED BLOOD COUNT 2.71 MIL/MM3 (4.50-5.90); RED CELL DISTRIBUTION WIDTH 18.2 % (11.6-17.2); WHITE BLOOD COUNT 8.2 TH/MM3 (4.0-11.0)
[2016-12-17 09:32] LABS: BICARBONATE 28.2 MEQ/L (21.0-32.0); POTASSIUM 3.5 MEQ/L (3.5-5.1)
[2016-12-17 09:36] LABS: BANDS 11 % (0-6); BASOPHILS 1 % (0-2); EOSINOPHILS 4 % (0-4); METAMYELOCYTES 3 % (0-1); MYELOCYTES 5 % (0-0); NEUTROPHIL # MANUAL DIFF 6.2 TH/MM3 (1.8-7.7); POLYS (SEG NEUTROPHILS) 56 % (16-70); PROMYELOCYTES 1 % (0-0); WBC DIFF SAMPLE 100
[2016-12-17 09:37] LABS: KERATOCYTES OCC (NORMAL)
[2016-12-17 09:38] LABS: PLATELET ESTIMATE SMEAR LOW (NORMAL); PLATELET MORPHOLOGY NORMAL (NORMAL); SCAN/DIFF FINAL DIFF MANUAL
[2016-12-17] MEDS: INSULIN ASPART SUPPLEMENTAL SCALE SQ SCH ×3 (11:00→20:21)
--- NOTE | 2016-12-17 11:15 | PD.CONS ---
Consult Service Palliative Care . Consult Requested By Dr. Stallings . Primary Care Physician [facility] . Reason for Consultation a. To assist with evaluation and management of symptoms including: altered mental status, lethargy, weakness. b. To assist medical decision maker(s) with: better understanding of current medical conditions; weighing benefits/burdens of medical treatment options; making medical treatment decisions. . (SUKHDEV GERARD) HPI History of Present Illness Mr. Munson is a 71 year old male with a medical history of DM type 2, hypertension, morbid obesity, chronic kidney disease, anemia, BPH and asthma. He was previously admitted [place] [facility] [place] - 11/16/16 with DKA/sepsis. He was discharged to [facility] for rehab. Patient was seen by palliative care team during this admission. He elected NO CODE and completed [place] Do Not Resuscitate during this admission. On 11/27/16 he presented to ER with anemia for blood transfusion. He had been refusing GI workup. He returned to [facility] post transfusion. Notes indicate he has had ongoing trajectory of decline. Patient presented to [facility] ER on 12/16/16 with abdominal pain, distention, anemia. Additional findings include: * WBC 6.3, hgb 6.2, hct 18.7, platelets 104. * Sodium 147, potassium 3.5, Creatinine 1.75, BUN 70, GFR 39. * Total bilirubin 0.5, AST 90, ALT 65, alk phos 1060 * Total protein 6.3, albumin 1.8 * PT 15.3, INR 1.4, PTT 33.5 * Lipase 411 * Lactic Acid 1.6. * Urinalysis positive leukocyte esterase, bacteria and mucus, culture indicated - pending. * Blood and urine cultures pending. * Chest x-ray revealed bilateral hilar infiltrates. * CT head no acute intracranial abnormality, chronic left mastoiditis and sinusitis. * CT abdomen/pelvis revealed marked heterogenicity of the liver with numerous vague hypodense masses measuring up to 5 cm in size, concerning for metastatic disease; right > left consolidation and pleural fluid of lung bases; new diffuse mottled sclerosis of visualized osseous structures; no obstruction or acute inflammatory changes seen in GI tract, no obvious GI mass. Patient was admitted with altered mental status, failure to thrive, possible mets disease to liver, GI bleed/ anemia, UTI and pneumonia. Oncology, GI have been consulted. Palliative care is consulted to further clarify treatment goals. . Function/Cognitive Trajectory Was residing with Che prior to October admission at the time he required assistance with ADLs. He was using a walker up to approximately one month ago. Limited mobility due to weight, chronic lower extremity edema and progressive weakness. Sleeping in recliner chair for the past 3 years. Since October admission he has been in rehab at [facility]. . (SUKHDEV GERARD) Review of Systems Constitutional: COMPLAINS OF: Fatigue, Weight loss, Change in appetite ( stopped eating and drinking completely in days prior to admission per SNF staff. ), Generalized weakness Respiratory: COMPLAINS OF: Shortness of breath Cardiovascular: COMPLAINS OF: Dyspnea on Exertion, Lower Extremity Edema Gastrointestinal: COMPLAINS OF: Abdominal pain, Anorexia Musculoskeletal: COMPLAINS OF: Back pain, Decreased range of motion Hematologic/Lymphatics: COMPLAINS OF: Bruising, History of transfusions Neurologic: COMPLAINS OF: Poor Balance (previosuly able to stand and pivot, unable to recently per SNF staff. ) (SUKHDEV GERARD) Past Family Social History Coded Allergies: Azithromycin (Verified Allergy, Severe, Rash/hives, 12/16/16) Toradol (Verified Allergy, Severe, Hives, 12/16/16) Tramadol (Verified Allergy, Intermediate, RASH/HIVES, 12/16/16) Cipro (Verified Allergy, Unknown, 12/16/16) Ativan (Verified Adverse Reaction, Severe, Agitation, combative, 12/16/16) Flu Vaccine (Verified Adverse Reaction, Severe, Chest pain, 12/16/16) Past Medical History C-diff DM, type 2 Morbid obesity Depression Chronic pedal edema HTN CKD CAD Anemia of chronic disease BPH, with urinary obstruction -chronic indwelling George use since May 2016 Asthma Bilateral legs cellulitis Neuropathy . Past Surgical History Cholecystectomy Cystoscopy . Reported Medications Active Lortab (Hydrocodone-Acetaminophen) 5-325 Mg Tab 1 Tab PO Q4H PRN Lovenox Inj (Enoxaparin Sodium) 30 Mg/0.3 Ml Syr 30 Mg SQ Q24H 10 Days Lantus Inj (Insulin Glargine) 100 Unit/Ml Inj 35 Units SQ BIDAC 90 Days Reported Florastor (Saccharomyces Boulardii) 250 Mg Cap 250 Mg PO BID Loperamide (Loperamide HCl) 2 Mg Cap 2 Mg PO DIRECTED PRN One capsule after each loose stool. Not to exceed 8 capsules per day. Doxycycline Hyclate 100 Mg Cap 100 Mg PO BID Colace (Docusate Sodium) 100 Mg Cap 100 Mg PO TID PRN Bumex (Bumetanide) 1 Mg Tab 1 Mg PO BID Aspirin 81 Mg Chew 81 Mg CHEW DAILY Balmex Adult Care (Zinc Oxide (Topical)) 11.3 % Cre 1 Applic TOPICAL Q8HR Apply to excoriated area on sacrum q-shift First-Vancomycin 50 Liq (Vancomycin HCl) 50 Mg/Ml Danielle 250 Mg PO QID 10 Days Proventil Hfa 6.7 GM Inh (Albuterol Sulfate) 90 Mcg/Act Aer 2 Puff INH Q6H PRN Prilosec (Omeprazole) 20 Mg Cap 20 Mg PO DAILY Multi-Vitamin/Minerals (Multiple Vitamins W/ Minerals) 1 Tab Tab 1 Tab PO DAILY Iron (Ferrous Sulfate) 325 Mg Tab 325 Mg PO BID In the am & at bedtime Escitalopram (Escitalopram Oxalate) 10 Mg Tab 10 Mg PO DAILY Hydroxyzine HCl 25 Mg Tab 25 Mg PO Q6HR PRN Novolin R Inj (Insulin Human Regular) 1,000 Unit/10 Ml Vial 0 SQ DIRECTED Sliding Scale As Directed: 60-149=0 UNITS, 150-200=2 UNITS, 201-250=4 UNITS, 251-300=6 UNITS, 301-350=8 UNITS, 351-400=10 UNITS, 401-450=12 UNITS, 451-500=14 UNITS, 501+=18 UNITS & CALL Lisinopril 40 Mg Tab 40 Mg PO DAILY Metoprolol Tartrate 50 Mg Tab 50 Mg PO BID Gabapentin 600 Mg Tab 600 Mg PO TID Tamsulosin (Tamsulosin HCl) 0.4 Mg Cap 0.4 Mg PO HS . Current Medications Medications (Trade) Dose Ordered Sig/Siomara Route Start Time Stop Time Status Last Admin (NS 250 ml Inj) 250 ml @ 15 mls/hr ONCE ONCE IV 12/16/16 21:15 12/17/16 13:54 12/16/16 23:33 (Bumetanide) 1 mg BID PO 12/17/16 09:00 (Flomax) 0.4 mg HS PO 12/17/16 21:00 (VANCOMYCIN for oral use only) 250 mg QID PO 12/17/16 09:00 (Zinc Oxide 20% Oint) 1 applic Q8HR TOPICAL 12/17/16 06:00 (NS Flush) 2 ml UNSCH PRN FLUSH 12/16/16 22:30 (NS Flush) 2 ml BID FLUSH 12/17/16 09:00 12/17/16 09:00 (Tylenol) 650 mg Q4H PRN PO 12/16/16 22:30 (Zofran Inj) 4 mg Q6H PRN IVP 12/16/16 22:30 (Milk Of Magnesia Liq) 30 ml Q12H PRN PO 12/16/16 22:30 (Senokot) 17.2 mg Q12H PRN PO 12/16/16 22:30 (Ambien) 5 mg HS PRN PO 12/16/16 22:30 (Narcan Inj) 0.4 mg UNSCH PRN IV 12/16/16 22:30 (Catapres) 0.1 mg Q6H PRN PO 12/16/16 22:30 ([place] 5-325 Mg) 1 tab Q4H PRN PO 12/16/16 22:30 Pantoprazole Sodium 40 mg 40 mg Q24H IV PUSH 12/16/16 23:00 12/16/16 23:33 Metronidazole 100 ml @ 100 mls/hr Q8H IV 12/17/16 04:00 12/17/16 04:00 Sodium Chloride 1,000 ml @ 42 mls/hr [id number] IV 12/16/16 22:45 12/16/16 23:32 (Zosyn 3.375 Gm Premix) 50 ml @ 100 mls/hr Q6H IV 12/17/16 00:00 12/17/16 06:00 (NS Flush) 2 ml BID IVF 12/17/16 09:00 (NS Flush) 2 ml UNSCH PRN IVF 12/17/16 01:15 (D50w (Vial) Inj) 25 ml UNSCH PRN IV PUSH 12/17/16 09:00 (Glucagon Inj) 1 mg UNSCH PRN OTHER 12/17/16 09:00 . Family History Father had DM type 2, heart failure and HTN Mother had dementia -92 y/o and alive Sister from MVA Substance Use Tobacco: denies Alcohol: denies Prescription med abuse: denies Illicits: denies . Psychosocial History Retired. College degree. to [employer]. Has 1 child: Julia Allen who resides in [place]. . Spiritual/Cultural Factors Synagogue janay. . (SUKHDEV GERARD) Living Will: Copy in medical record Health Care Surrogate: Copy in medical record Health Care Surrogate(s): Standard Living Will scanned into EMR completed 11/14/16, names his , Che Luna as designated health care surrogate. . Today's verbally stated goals: Patient incapacitated, uncertain if he will regain capacity. Speech is garbled, not able to answer any questions appropriately during my visit. . Family/friends goals: Spoke with daughter, Julia, she confirms pt wish for NO CODE. Medical update provided. Left message for to return call. . Ethical and Legal Issues Patient incapacitated, uncertain if he will regain capacity. Standard Living Will scanned into EMR completed 11/14/16, names his , Che Luna as designated health care surrogate. . (SUKHDEV GERARD) Physical Exam Vital Signs Date Time Temp Pulse Resp B/P Pulse Ox O2 Delivery O2 Flow Rate FiO2 12/17/16 08:03 100 Nasal Cannula 2.00 12/17/16 08:00 97.6 78 18 144/65 100 12/17/16 08:00 100 Nasal Cannula 2.00 12/17/16 08:00 78 12/17/16 06:00 73 12/17/16 04:00 70 12/17/16 04:00 98.0 70 18 131/61 100 12/17/16 02:30 71 16 121/59 95 Nasal Cannula 2 12/17/16 02:00 96 Nasal Cannula 2.00 12/17/16 01:30 98.9 50 14 119/58 96 Nasal Cannula 2 12/17/16 01:08 98.9 79 16 138/63 96 Nasal Cannula 2 12/16/16 23:30 78 16 119/56 98 Nasal Cannula 2 12/16/16 23:15 80 16 115/65 98 Nasal Cannula 2 12/16/16 23:00 78 16 108/58 98 Nasal Cannula 2 12/16/16 22:45 80 16 119/60 98 Nasal Cannula 2 12/16/16 22:30 98.5 75 14 116/53 100 Nasal Cannula 2 12/16/16 19:31 99.0 82 16 106/55 95 12/16/16 19:31 82 16 98 Nasal Cannula 2 12/16/16 19:31 98 Nasal Cannula 2 12/16/16 19:31 79 16 106/55 98 Nasal Cannula 2 12/16/16 12/17/16 19:00 07:00 Intake Total 1167 ml Output Total 400 ml Balance 767 ml Intake IV Total 331 ml Packed Cells 836 ml Output Urine Total 400 ml Stool Total 0 ml Exam CONSTITUTIONAL/GENERAL: This is obese, critically ill patient, lethargic. TUBES/LINES/DRAINS: PIV right, George. SKIN: No jaundice, rashes, or lesions. Ecchymoses on upper extremities. No wounds seen anteriorly. Skin temperature appropriate. Not diaphoretic. HEAD: Atraumatic. Normocephalic. EYES: Eyes closed. ENT: Difficult to assess hearing given LOC. Nose without bleeding or purulent drainage. Mouth closed, drooling. NECK: Trachea midline. CARDIOVASCULAR: Regular rate and rhythm without murmurs, gallops, or rubs. No JVD. Bilateral UE and LE edema. RESPIRATORY/CHEST: Symmetric, unlabored respirations. Clear to auscultation. Breath sounds equal bilaterally. No wheezes, rales, or rhonchi. GASTROINTESTINAL: Protuberant. Abdomen soft, non-tender, nondistended. No guarding. Bowel sounds present. GENITOURINARY: Without palpable bladder distension. George catheter in place. MUSCULOSKELETAL: Extremities without clubbing, cyanosis, or edema. No joint tenderness or effusion noted. No calf tenderness. No mottling or clubbing. LYMPHATICS: No palpable cervical or supraclavicular adenopathy. NEUROLOGICAL: Lethargic, stirs slightly, does not answer questions or follow commands for me. Moves all extremities. PSYCHIATRIC: Lethargic. . (SUKHDEV GERARD) Diagnostic Tests Laboratory Laboratory Tests Test 12/16/16 12/16/16 12/16/16 12/17/16 19:50 20:00 21:03 08:30 White Blood Count 6.3 TH/MM3 8.2 TH/MM3 (4.0-11.0) (4.0-11.0) Red Blood Count 2.18 MIL/MM3 2.71 MIL/MM3 (4.50-5.90) (4.50-5.90) Hemoglobin 6.2 GM/DL 7.7 GM/DL (13.0-17.0) (13.0-17.0) Hematocrit 18.7 % 24.4 % (39.0-51.0) (39.0-51.0) Mean Corpuscular Volume 85.8 FL 89.9 FL (80.0-100.0) (80.0-100.0) Mean Corpuscular Hemoglobin 28.2 PG 28.3 PG (27.0-34.0) (27.0-34.0) Mean Corpuscular Hemoglobin 32.9 % 31.5 % Concent (32.0-36.0) (32.0-36.0) Red Cell Distribution Width 19.7 % 18.2 % (11.6-17.2) (11.6-17.2) Platelet Count 104 TH/MM3 104 TH/MM3 (150-450) (150-450) Mean Platelet Volume 8.8 FL 8.4 FL (7.0-11.0) (7.0-11.0) Neutrophils (%) (Auto) 66.5 % 68.0 % (16.0-70.0) (16.0-70.0) Lymphocytes (%) (Auto) 20.0 % 18.1 % (9.0-44.0) (9.0-44.0) Monocytes (%) (Auto) 10.7 % 9.9 % (0.0-8.0) (0.0-8.0) Eosinophils (%) (Auto) 1.9 % (0.0-4.0) 2.9 % (0.0-4.0) Basophils (%) (Auto) 0.9 % (0.0-2.0) 1.1 % (0.0-2.0) Neutrophils # (Auto) 4.2 TH/MM3 5.6 TH/MM3 (1.8-7.7) (1.8-7.7) Lymphocytes # (Auto) 1.3 TH/MM3 1.5 TH/MM3 (1.0-4.8) (1.0-4.8) Monocytes # (Auto) 0.7 TH/MM3 0.8 TH/MM3 (0-0.9) (0-0.9) Eosinophils # (Auto) 0.1 TH/MM3 0.2 TH/MM3 (0-0.4) (0-0.4) Basophils # (Auto) 0.1 TH/MM3 0.1 TH/MM3 (0-0.2) (0-0.2) CBC Comment AUTO DIFF AUTO DIFF Differential Total Cells 100 100 Counted Neutrophils % (Manual) 52 % (16-70) 56 % (16-70) Band Neutrophils % 9 % (0-6) 11 % (0-6) Lymphocytes % 22 % (9-44) 12 % (9-44) Monocytes % 6 % (0-8) 7 % (0-8) Eosinophils % 1 % (0-4) 4 % (0-4) Neutrophils # (Manual) 4.5 TH/MM3 6.2 TH/MM3 (1.8-7.7) (1.8-7.7) Metamyelocytes 9 % (0-1) 3 % (0-1) Myelocytes 1 % (0-0) 5 % (0-0) Nucleated Red Blood Cells 2 /100 WBC (0-0) Differential Comment FINAL DIFF FINAL DIFF MANUAL MANUAL Platelet Estimate LOW (NORMAL) LOW (NORMAL) Platelet Morphology Comment NORMAL NORMAL (NORMAL) (NORMAL) Basophilic Stippling FAINT (NORMAL) Spherocytes 1+ (NORMAL) Ovalocytes 1+ (NORMAL) Keratocytes OCC (NORMAL) OCC (NORMAL) Prothrombin Time 15.3 SEC (9.8-11.6) Prothromb Time International 1.4 RATIO Ratio Activated Partial 33.5 SEC Thromboplast Time (24.3-30.1) Sodium Level 147 MEQ/L 149 MEQ/L (136-145) (136-145) Potassium Level 3.5 MEQ/L 3.5 MEQ/L (3.5-5.1) (3.5-5.1) Chloride Level 108 MEQ/L 112 MEQ/L (98-107) (98-107) Carbon Dioxide Level 29.9 MEQ/L 28.2 MEQ/L (21.0-32.0) (21.0-32.0) Anion Gap 9 MEQ/L (5-15) 9 MEQ/L (5-15) Blood Urea Nitrogen 70 MG/DL (7-18) 67 MG/DL (7-18) Creatinine 1.75 MG/DL 1.61 MG/DL (0.60-1.30) (0.60-1.30) Estimat Glomerular Filtration 39 ML/MIN (>89) 43 ML/MIN (>89) Rate Random Glucose 206 MG/DL 83 MG/DL (74-106) (74-106) Lactic Acid Level 1.6 mmol/L (0.4-2.0) Calcium Level 8.1 MG/DL 8.2 MG/DL (8.5-10.1) (8.5-10.1) Total Bilirubin 0.5 MG/DL (0.2-1.0) Aspartate Amino Transf 90 U/L (15-37) (AST/SGOT) Alanine Aminotransferase 65 U/L (12-78) (ALT/SGPT) Alkaline Phosphatase 1060 U/L (45-117) Total Protein 6.3 GM/DL (6.4-8.2) Albumin 1.8 GM/DL (3.4-5.0) Lipase 411 U/L (73-393) Blood Type O POSITIVE Antibody Screen NEGATIVE Urine Color YELLOW (YELLW/STRAW) Urine Turbidity CLOUDY (CLEAR) Urine pH 8.0 (5.0-8.5) Urine Specific [place] 1.018 (1.002-1.035) Urine Protein 100 mg/dL (NEG-TRACE) Urine Glucose (UA) NEG mg/dL (NEG) Urine Ketones NEG mg/dL (NEG) Urine Occult Blood NEG (NEG) Urine Nitrite POS (NEG) Urine Bilirubin NEG (NEG) Urine Urobilinogen LESS THAN 2.0 MG/DL (LESS THAN 2.0) Urine Leukocyte Esterase LARGE (NEG) Urine RBC 1 /hpf (0-3) Urine WBC 19 /hpf (0-5) Urine WBC Clumps FEW (NONE) Urine Squamous Epithelial <1 /hpf (0-5) Cells Urine Uric Acid Crystals OCC /hpf (NONE) Urine Bacteria MOD /hpf (NONE) Urine Mucus FEW /lpf (OCC) Microscopic Urinalysis Comment CATH-CULTURE IND Crossmatch Leukocyte-Reduced Red Blood Cells Blood Bank Comment Basophils % 1 % (0-2) Promyelocytes 1 % (0-0) Hematology Comments (SUKHDEV GERARD) Result Diagram: 12/17/16 0830 12/17/16 0830 Microbiology Microbiology Date/Time Procedure Status Source Growth 12/16/16 19:50 Aerobic Blood Culture Received Blood Peripheral Pending 12/16/16 19:50 Anaerobic Blood Culture Received Blood Peripheral Pending 12/16/16 19:55 Aerobic Blood Culture Received Blood Peripheral Pending 12/16/16 19:55 Anaerobic Blood Culture Received Blood Peripheral Pending 12/16/16 20:00 Urine Culture Worksheet Urine Catheterized Urine Pending . Imaging Last Impressions Chest X-Ray 12/16/161937 Signed Impressions: Service Date/Time: Friday, December 16, 2016 19:50 - CONCLUSION: Perihilar infiltrates on both sides. Sunny Zamarripa MD Head CT 12/16/16 0000 Signed Impressions: Service Date/Time: Friday, December 16, 2016 20:37 - CONCLUSION: 1. No acute intracranial abnormality. 2. 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 There is paranasal sinusitis as well, ethmoid and left sphenoid predominant Sunny Zamarripa MD Abdomen/Pelvis CT 12/16/16 0000 Signed Impressions: Service Date/Time: Friday, December 16, 2016 20:42 - CONCLUSION: 1. Noncontrast CT concerning for hepatic metastatic disease. Also suspected metastatic disease or renal failure associated changes of the bones. 2. No obstruction or acute inflammatory changes seen of the gastrointestinal tract. I don't convincingly see a GI tract mass. 3. Stable low and intermediate attenuation masses of both kidneys. Please see above. 4. Right greater the left consolidation and pleural fluid of the visualized lung bases. Sunny Zamarripa MD . (SUKHDEV GERARD) Patient/Family Conference Present at Family Conference: Spoke with via telephone. Family Conference Time (mins): 35 Family Conference Location: Telephone Issues Discussed: * Palliative care role, purpose, approach * Additional medical, psychosocial, and spiritual history * Patients general health, functional status, and cognitive changes in the months leading up to the current hospitalization * Patient/family understanding of the current medical problems * Patient/family understanding of prognosis * Patients goals of care as best understood from advance directives and/or conversations and/or values * Current medical treatment options and benefits/burdens of those options * Likely scenarios comparing ongoing aggressive care with a transition to comfort measures only * Questions answered to the best of my ability * Palliative care contact information provided In summary she understands patient likely has advanced cancer. Awaiting oncology consult. She confirms NO CODE wishes of pt. She agrees to speak again after we hear from oncology. She does not think patient wants colonoscopy, she will try to talk with him again tonight. We agreed to meet 12/18/16 at 2pm. . (SUKHDEV GERARD) Assessment and Plan Disease Oriented Problem List: (1) Bilateral lower leg cellulitis (2) Bilateral lower extremity edema (3) DOLORES (acute kidney injury) (4) Diabetes type 2, uncontrolled (5) Metastatic disease (6) GI bleed (7) HTN (hypertension) (8) Mastoiditis (9) Weakness (10) UTI (urinary tract infection) (11) GERD (gastroesophageal reflux disease) (12) Anemia Symptom Scale: (1) Generalized weakness 0-10 Scale: Unable to quantify (2) Lethargy 0-10 Scale: Unable to quantify (3) Altered mental status 0-10 Scale: Unable to quantify Pertinent Non-Medical Issues Psychosocial: . 1 daughter. Spiritual: Synagogue. Legal: Standard Living Will scanned into EMR completed 11/14/16, names his , Che Luna as designated health care surrogate. Ethical issues impacting care: none identified. . Important Contacts * Che Luna, / HCS: * Christy Allen, daughter: -resides in [place]. . Prognosis Mr. Munson is a 71 y/ morbid obese male with a medical history of DM type 2, HTN, chronic kidney disease, anemia, BPH and asthma with persistent GI bleed requiring transfusions and ongoing decline. Recent hospitalization for DKA, sepsis and severe anemia. Now found to have what appears to be mets disease to the liver, GI bleed refusing colonoscopy. Based on his pre-existing functional status and multiple acute/chronic comorbid illnesses, encephalopathy and infection patient is at high risk for complications, further decline and . . Code Status: No Code Plan * Standard Living Will scanned into EMR completed 11/14/16, names his , Che Luna as designated health care surrogate. * NO CODE - [place] DNR signed by patient scanned into EMR dated 11/13/16. * Spoke with daughter, Julia, she confirms pt wish for NO CODE. Medical update provided. * Later spoke with via telephone - she DOES NOT WANT ANY INFORMATION GIVEN TO DTR. In summary she understands patient likely has advanced cancer. Awaiting oncology consult. She confirms NO CODE wishes of pt. She agrees to speak again after we hear from oncology. She does not think patient wants colonoscopy, she will try to talk with him again tonight. We agreed to meet 12/18/16 at 2pm. * Discussed with nurse and GI. * Symptoms: Weakness, multifactorial due to profound physical deconditioning and chronic comorbid illnesses. Altered mental status: possibly related to infection, general decline, malignancy? Lethargy: likely multifactorial, infection, decline and possible malignancy. * Palliative care contact information provided. * Palliative care will continue to follow-up with this patient for further clarification of goals of care. (SUKHDEV GERARD) Thank you for the opportunity to participate in the care of Mr. Munson. (SUKHDEV GERARD) Attestation To help prompt me to consider important information that might be impacting today's encounter and assessment, information from prior notes written by myself or my colleagues may have been "brought forward" into today's note. My signature on this note, however, is an attestation that I personally performed the exam, history, and/or decision-making noted today, and, unless otherwise indicated, the interactions with patient, family, and staff as well as the review of records all occurred today. I also attest that the listed assessment and stated plan reflect my best clinical judgment today based on the combination of historical information, prior notes, and today's exam/ interactions. When time spent is documented, it refers only to time spent today by the signer, or if indicated, combined time spent today by collaborating physician/nurse practitioner. . (SUKHDEV GERARD) Collaborating MD Comments Chart reviewed. Case discussed with palliative care PULP MAKER. Above PULP MAKER note reviewed and I concur. . (Flaquito Garnica MD) SUKHDEV GERARD Dec 17, 2016 11:15 Flaquito Garnica MD Jan 19, 2017 07:44
[2016-12-17] MEDS: ACETAMINOPHEN/HYDROcodone 325 MG/5 MG TAB PO PRN (14:58)
[2016-12-17] MEDS ORDERED: PHYTONADIONE 5 MG TAB PO ONE (19:30)
[2016-12-17] MEDS: TAMSULOSIN HCL 0.4 MG CAP PO SCH (20:20)
--- NOTE | 2016-12-17 21:31 | MB ---
cc: SUMAYA NOLASCO M.D. DATE OF CONSULTATION: 12/17/2016 REASON FOR CONSULTATION: Probable metastatic cancer to the liver. PATIENT PROFILE The patient is a 71 year old white male who has been three times. He was born in [place]. He has lived in [place] for 3 years. He has eight children. 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 He had been in [place]. He does not smoke. He does not drink. HISTORY OF PRESENT ILLNESS The patient is a 71 year old male who is not a good historian. He does provide a history and his was present likewise to add additional information. His health has not been good during the past 6-12 months. He has had generalized weakness and problems walking. He developed profound weakness and ended up in a intermediate. He has had problems with recurrent cellulitis involving the lower extremities. He has had anemia and has declined GI evaluation. His current admission occurred because of altered mental status and according to the ER note, melena, abdominal pain, distension, and a hemoglobin of 5.7. On December 16, 2016, hemoglobin is 6.2, white count 6300 and platelets 104,000. He was found to have abnormal liver function tests, alk phos 1060, AST is 90, ALT is 65, albumin is 1.8. He had imaging studies. CT scan of the abdomen and pelvis on 12/16/2016 was done without contrast because of chronic renal failure. He has numerous vague hypodense masses in the liver measuring up to 5 cm. The liver is 23 cm in a craniocaudal direction and was previously 19 cm. There is mild consolidations at the lung base, right greater than left. There are stable low and intermediate attenuation masses of both kidneys. A chest x-ray on 12/16/2016 showed perihilar infiltrates on both sides. The laboratory tests which are of greatest concern are the tumor markers. An alpha-fetoprotein is 7, CA19-9 is 193 and most remarkable is the CEA of 3,208. The patient has had abdominal pain. He denies any melena, hematochezia. He has had a weight loss of 36 pounds. He has never had an upper endoscopy or colonoscopy, and at one point colonoscopy was suggested. PAST SURGICAL HISTORY 1. Cholecystectomy in 2008. PAST MEDICAL HISTORY: 1. Diabetes. 2. Renal failure. Current creatinine 1.6, BUN 67. 3. Hypertension. 4. Questionable stroke 20 years ago. 5. Anemia. 6. Urinary retention, having required a George catheter since May of 2016. MEDICATIONS: Prior to admission. 1. Albuterol 2. Aspirin. 3. Bumex 4. Doxycycline 5. Lovenox. 6. Celexa. 7. Iron. 8. Gabapentin. 9. Lortab. 10. Hydroxyzine. 11. Insulin. 12. Lisinopril 13. Metoprolol. 14. Omeprazole. 15. Flomax. 16. Vancomycin. ALLERGIES: CIPRO, TORADOL, ATIVAN. FAMILY HISTORY Father of heart failure. Mother is 93 and living. The patient has a sister who in a motorcycle accident. REVIEW OF SYSTEMS: Constitutional: At least 30 pounds weight loss, progressive weakness to the point that he is bedridden. There is no change in vision or hearing. No chest pain, palpitations. He short of breath with minimal activity. GI: 30-pound weight loss, abdominal pain. Denies bleeding, never had colonoscopy. : Urinary retention, requires George catheter. Musculoskeletal: No bone pain. Neurologic: Generalized weakness, at this point virtually bedridden. Skin: Skin breakdown over the ankles, heels. Psychiatric: Discouraged. PHYSICAL EXAMINATION: The physical exam reveals a chronically ill male who is bedridden. He is able to answer questions appropriately, although short-term memory is not good. VITAL SIGNS: Blood pressure is 115/60, respiratory rate 20, pulse 80 afebrile. O2 sat 95%. Head: Normocephalic. Sclera and conjunctivae are normal. Oropharynx: Multiple teeth are absent. No cervical, supraclavicular, axillary or inguinal adenopathy. Heart: Regular rhythm. Lungs: Decreased sounds at the bases. Abdomen: Obese, edematous. Liver, I believe, is about 5 or 6 cm below the right costal margin, slightly tender. Extremities: +1 edema. There is beginning to break down of the skin over the heels and there are stasis changes and hyperkeratosis involving the areas around the ankles. ASSESSMENT: The patient is a 71 year-old male who presents with a CT scan of the abdomen showing diffuse metastatic disease and a CEA of 3208. 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 The most likely source would be the colon. Other sources would be stomach, pancreas, and lung. I very much doubt that he will be a candidate for any treatment. He is severely debilitated. PLAN: I discussed the findings with the patient and his . I offered them the opportunity of pursuing supportive care without further evaluation. I believe we will be able to make a diagnosis and the likelihood of helping him with chemotherapy is small as he is profoundly debilitated. He desires further information before making a decision. Under these circumstances the following will be done: 1. The patient will have a CT scan of the thorax without contrast. 2. Needle biopsy of liver. 3. PT is slightly prolonged. I am going to give him oral vitamin K, 5 milligrams p.o. tonight. Will also check a serum ammonia level. I have left a message with Allyssa Galvan from the palliative care service to continue to work with the patient and , as I suspect he will eventually go on to the Hospice program. He is currently bedridden and I believe has a large volume of disease. MD ELODIA Berrios/VIVEK /7:23 PM /9:11 PM RYAN
[2016-12-17] MEDS: PANTOPRAZOLE SODIUM 40 MG VIAL IV PUSH SCH (23:47)
[2016-12-17] MEDS: SODIUM CHLOR 0.45% 1000 ML INJ 1,000 ML IV SCH (23:54)
[2016-12-18] VITALS (14 sets, daily range): BP systolic 113–186; BP diastolic 56–76; PULSE 87–118; RESP 16–22; TEMP 96–99; O2SAT 92–96
[2016-12-18] MEDS: metroNIDAZOLE 500 MG INJ 100 ML IV SCH ×3 (04:21→22:00)
[2016-12-18] MEDS: ZINC OXIDE 20% OINT 30 GM TUBE TOPICAL SCH ×3 (07:06→22:03)
[2016-12-18] MEDS: PIPERACIL-TAZO 3.375 GM PREMIX 50 ML IV SCH ×3 (07:07→18:24)
[2016-12-18] MEDS: INSULIN ASPART SUPPLEMENTAL SCALE SQ SCH ×4 (07:08→22:14)
[2016-12-18] MEDS: RESP: ALBUTEROL 2.5 MG/IPRATROPIUM 0.5 MG NEB (SCH) NEB ×4 (08:08→19:27)
[2016-12-18 08:41] LABS: AUTOMATED NEUTROPHIL # 7.2 TH/MM3 (1.8-7.7); BASOPHIL # 0.1 TH/MM3 (0-0.2); BASOPHIL % 1.2 % (0.0-2.0); EOSINOPHIL # 0.2 TH/MM3 (0-0.4); EOSINOPHIL % 2.4 % (0.0-4.0); HEMATOCRIT 24.7 % (39.0-51.0); LYMPH % 14.6 % (9.0-44.0); LYMPHOCYTE # 1.4 TH/MM3 (1.0-4.8); MEAN CELL VOLUME 87.4 FL (80.0-100.0); MEAN CORPUSCULAR HEMOGLOBIN 28.4 PG (27.0-34.0); MEAN CORPUSCULAR HGB CONC 32.5 % (32.0-36.0); MONO % 7.4 % (0.0-8.0); NEUT % 74.4 % (16.0-70.0); PLATELET COUNT 136 TH/MM3 (150-450); RED BLOOD COUNT 2.83 MIL/MM3 (4.50-5.90); RED CELL DISTRIBUTION WIDTH 18.6 % (11.6-17.2); WHITE BLOOD COUNT 9.6 TH/MM3 (4.0-11.0)
[2016-12-18] MEDS: SODIUM CHLORIDE 0.9% FLUSH 5 ML FLUSH FLUSH SCH ×2 (08:55→22:02)
[2016-12-18] MEDS: VANCOMYCIN 500 MG VIAL (FOR ORAL USE ONLY) PO SCH ×4 (08:55→22:01)
[2016-12-18] MEDS: BUMETANIDE 1 MG TAB PO SCH ×2 (08:55→22:01)
[2016-12-18] MEDS: ACETAMINOPHEN/HYDROcodone 325 MG/5 MG TAB PO PRN ×2 (08:56→17:30)
[2016-12-18] MEDS: SODIUM CHLORIDE 0.9% FLUSH 5 ML FLUSH IVF SCH (08:57)
[2016-12-18 09:02] LABS: HEMO FLAGS AUTO DIFF
[2016-12-18 09:07] LABS: BICARBONATE 22.8 MEQ/L (21.0-32.0); POTASSIUM 3.9 MEQ/L (3.5-5.1)
[2016-12-18 10:13] LABS: BANDS 8 % (0-6); BASOPHILS 1 % (0-2); CORRECTED NUCLEATED RBC 3 /100 WBC (0-0); EOSINOPHILS 5 % (0-4); METAMYELOCYTES 3 % (0-1); MYELOCYTES 2 % (0-0); NEUTROPHIL # MANUAL DIFF 8.3 TH/MM3 (1.8-7.7); POLYS (SEG NEUTROPHILS) 73 % (16-70); SCAN/DIFF FINAL DIFF MANUAL; WBC DIFF SAMPLE 100
[2016-12-18 10:15] LABS: KERATOCYTES OCC (NORMAL); PLATELET ESTIMATE SMEAR LOW (NORMAL); PLATELET MORPHOLOGY NORMAL (NORMAL)
[2016-12-18] MEDS ORDERED: LIDOCAINE 1%/EPINEPHrine 1:100,000 SOLN 20 ML VIAL ONE (10:29)
[2016-12-18] MEDS ORDERED: MIDAZOLAM HCL 5 MG/5 ML VIAL ONE (10:50)
[2016-12-18] MEDS ORDERED: fentaNYL CITRATE 250 MCG/5 ML AMP ONE (10:50)
--- NOTE | 2016-12-18 11:14 | HHI.FPPN ---
Subjective Remarks more alert d/w RN Objective Vitals Vital Signs Date Time Temp Pulse Resp B/P Pulse Ox O2 Delivery O2 Flow Rate FiO2 12/18/16 08:50 Nasal Cannula 2.00 12/18/16 08:08 93 21 12/18/16 08:00 98.1 111 16 166/76 94 12/18/16 05:09 98.4 87 20 145/70 95 12/17/16 23:42 97.7 82 20 151/69 97 12/17/16 21:22 98.1 84 20 144/65 97 12/17/16 20:20 Room Air 12/17/16 19:38 95 21 12/17/16 16:45 98.6 83 20 114/61 95 12/17/16 16:00 99.1 82 21 123/58 98 12/17/16 16:00 82 12/17/16 15:58 21 12/17/16 12:00 95 Room Air 12/17/16 12:00 85 12/17/16 12:00 99.7 85 20 110/56 95 I/O 12/17/16 12/17/16 12/17/16 12/18/16 12/18/16 12/18/16 07:00 15:00 23:00 07:00 15:00 23:00 Intake Total 1167 ml 872 ml 720 ml 240 ml Output Total 400 ml 350 ml 400 ml 100 ml Balance 767 ml 522 ml 320 ml 140 ml Intake Oral 480 ml 720 ml 240 ml IV Total 331 ml 392 ml Packed Cells 836 ml Output Urine Total 400 ml 350 ml 400 ml 100 ml Stool Total 0 ml # Bowel Movements 0 1 4 Result Diagram: 12/18/1682412/18/16824 Objective Remarks GENERAL: SKIN: Warm and dry. Stasis changes and cellulitis of BLE's HEAD: Atraumatic. Normocephalic. EYES: Pupils equal and round. No scleral icterus. No injection or drainage. ENT: No nasal bleeding or discharge. Mucous membranes pink and moist. NECK: Trachea midline. No JVD. CARDIOVASCULAR: Regular rate and rhythm. RESPIRATORY: No accessory muscle use. Clear to auscultation. Breath sounds equal bilaterally. GASTROINTESTINAL: Abdomen soft, non-tender, nondistended. Hepatic and splenic margins not palpable. MUSCULOSKELETAL: two plus edema BLE's NEUROLOGICAL: Awake and alert. No obvious cranial nerve deficits. Motor grossly within normal limits. 1 out of 5 muscle strength in the arms and legs. Normal speech. PSYCHIATRIC: Appropriate mood and affect; insight and judgment normal. Medications and IVs Current Medications Medications (Trade) Dose Ordered Sig/Siomara Route Start Time Stop Time Status Last Admin (Bumetanide) 1 mg BID PO 12/17/16 09:00 12/18/16 08:55 (Flomax) 0.4 mg HS PO 12/17/16 21:00 12/17/16 20:20 (VANCOMYCIN for oral use only) 250 mg QID PO 12/17/16 09:00 12/18/16 08:55 (Zinc Oxide 20% Oint) 1 applic Q8HR TOPICAL 12/17/16 06:00 12/18/16 07:06 (NS Flush) 2 ml UNSCH PRN FLUSH 12/16/16 22:30 (NS Flush) 2 ml BID FLUSH 12/17/16 09:00 12/18/16 08:55 (Tylenol) 650 mg Q4H PRN PO 12/16/16 22:30 (Zofran Inj) 4 mg Q6H PRN IVP 12/16/16 22:30 12/18/16 05:31 (Milk Of Magnesia Liq) 30 ml Q12H PRN PO 12/16/16 22:30 (Senokot) 17.2 mg Q12H PRN PO 12/16/16 22:30 (Ambien) 5 mg HS PRN PO 12/16/16 22:30 (Narcan Inj) 0.4 mg UNSCH PRN IV 12/16/16 22:30 (Catapres) 0.1 mg Q6H PRN PO 12/16/16 22:30 (Aldie 5-325 Mg) 1 tab Q4H PRN PO 12/16/16 22:30 12/18/16 08:56 Pantoprazole Sodium 40 mg 40 mg Q24H IV PUSH 12/16/16 23:00 12/17/16 23:47 Metronidazole 100 ml @ 100 mls/hr Q8H IV 12/17/16 04:00 12/18/16 04:21 Sodium Chloride 1,000 ml @ 42 mls/hr [id number] IV 12/16/16 22:45 12/17/16 23:54 (Zosyn 3.375 Gm Premix) 50 ml @ 100 mls/hr Q6H IV 12/17/16 00:00 12/18/16 07:07 (NS Flush) 2 ml BID IVF 12/17/16 09:00 (NS Flush) 2 ml UNSCH PRN IVF 12/17/16 01:15 (D50w (Vial) Inj) 25 ml UNSCH PRN IV PUSH 12/17/16 09:00 (Glucagon Inj) 1 mg UNSCH PRN OTHER 12/17/16 09:00 A/P Assessment and Plan AMS FTT LIVER METS ?COLON CA ?RENAL METS GIB BLOOD LOSS ANEMIA. TRANSFUSED PRBC'S C DIF UTI HCAP DM BLE CELLULITIS PLAN: IV ABX IVF BLOOD CULTURES UA C/S PROTONIX IV INSULIN PALLIATIVE CONSULT ONCOLOGY CONSULT GI CONSULT ID CONSULT FOR C DIF, UTI, PNA AM LABS SEE MY ORDERS PLEASE. Yon Stallings MD Dec 18, 2016 11:14
--- NOTE | 2016-12-18 11:49 | RADRPT ---
EXAM DATE/TIME: 12/18/2016 11:04 [facility] COMPARISON: No previous studies available for comparison. INDICATIONS : Multiple liver masses SEDATION TIME: 30 minutes BIOPSY SITE: liver MEDICATION(S): 1.) 2 mg midazolam (Versed) IV 2.) 100 mcg fentanyl (Sublimaze) IV DEVICE(S): 1.) 16 gauge Vargas blunt needle 2.) 18 gauge BioPince MEDICAL HISTORY : Renal disease, end stage. Hypertension. Chronic obstructive pulmonary disease. SURGICAL HISTORY : None. ENCOUNTER: Initial ACUITY: 1 day PAIN SCORE: 0/10 LOCATION: Right upper quadrant A total of one core specimen(s) were obtained and sent to the laboratory for pathologic evaluation. PROCEDURE: 1. CT guided liver biopsy. 2. Conscious sedation with continuous EKG and oximetry monitoring. 3. EKG and oximetry remained stable throughout the procedure. Prior to the procedure informed consent was obtained. Any appropriate prior imaging studies were rev iewed. The site was prepped in a sterile fashion. Full sterile technique was used, including cap, mask, gaye rile gloves and gown and a large sterile sheet. Hand hygiene and 2% chlorhexidine and/or betadine/al cohol prep was utilized per protocol for cutaneous antisepsis. The skin and subcutaneous tissues wer e infiltrated with local anesthetic solution. With CT guidance the previously identified target was localized. Biopsy was performed using the presc ribed needle as above. Adequate hemostasis was obtained with compression at the puncture site.Follow -up CT scan reveals no hemorrhage. The patient tolerated the procedure well and there were no complications. The patient was returned to the Radiology Outpatient Unit in stable condition. CONCLUSION: Uncomplicated CT guided biopsy liver biopsy. Enrique Hopson MD on December 18, 2016 at 11:48 Board Certified Radiologist. This report was verified electronically.
--- NOTE | 2016-12-18 11:54 | RADRPT ---
EXAM DATE/TIME: 12/18/2016 10:56 [facility] COMPARISON: No previous studies available for comparison. INDICATIONS: Evaluate for mets, liver lesions. RADIATION DOSE: 9.59 CTDIvol (mGy) MEDICAL HISTORY: Renal failure, acute. Hypertension. Chronic obstructive pulmonary disease. Diabetes SURGICAL HISTORY: Cholecystectomy. ENCOUNTER: Initial ACUITY: 2 days PAIN SCALE: 0/10 LOCATION: Chest TECHNIQUE: Volumetric scanning of the chest was performed. Using automated exposure control and adjustment of t he mA and/or kV according to patient size, radiation dose was kept as low as reasonably achievable to obtain optimal diagnostic quality images. FINDINGS: There are no suspicious lung lesions identified. Minimal bibasilar parenchymal changes are noted wor se on the right than the left. Calcified subcarinal adenopathy is noted. There is no axillary adenopathy. Mi nimal coronary artery calcifications evident. The liver is homogenous, described in detail on the CT scan of the abdomen. CONCLUSION: 1. I do not see primary or metastatic disease to the chest. 2. Bones are sclerotic. This can be seen with metastatic disease and renal osteodystrophy. Lee Self MD FACR on December 18, 2016 at 11:39 Board Certified Radiologist. This report was verified electronically.
[2016-12-18] MEDS: HYDROmorphone HCL 2 MG TAB PO PRN (12:19)
[2016-12-18] MEDS: CHOLESTYRAMINE 4 GM PACKET PO SCH ×2 (14:48→22:02)
--- NOTE | 2016-12-18 17:41 | HHI.HCPN ---
Reason for visit a. To assist with evaluation and management of symptoms including: pain, weakness. b. To assist medical decision maker(s) with: better understanding of current medical conditions; weighing benefits/burdens of medical treatment options; making medical treatment decisions. . (SUKHDEV GERARD) Subjective/Interval History Patient was seen and examined. at beside. He is awake and alert, speech is clear today. He seems to remember me from prior admission last month. He reports he has had increasing weakness, losing weight since last admission. He reports he was able to walk from bed to door in rehab a few times a few weeks ago. He and his ask me to review findings this admission. Reviewed imaging results with concern for malignancy (advanced mets disease of possible colorectal origin), lab results (including elevated tumor markers) reason for liver biopsy and concern that he will not be a candidate for treatment given his general debility and decline over the past few months. At the end of review , he says "do you have any good news?" He and his verbalize understanding. We agreed to await biopsy results for further clarification of treatment goals. He reports pain at liver biopsy site, relieved with Dilaudid 1 mg PO. Will continue to monitor pain. Vital signs stable. Hemoglobin stable at 8. Creatinine increasing 2.08. Ammonia 33. CEA 3208. CA 19-9 191.3. . Family/friend interactions See interval note. (SUKHDEV GERARD) Advance Directives Living Will: Copy in medical record Health Care Surrogate: Copy in medical record (SUKHDEV GERARD) Advance Directive Specifics Health Care Surrogate(s): Standard Living Will scanned into EMR completed 11/14/16, names his , Che Luna as designated health care surrogate. . Significant change in goals: NO CODE. Await liver biopsy results. (SUKHDEV GERARD) Objective Vital Signs Date Time Temp Pulse Resp B/P Pulse Ox O2 Delivery O2 Flow Rate FiO2 12/18/16 16:12 94 21 12/18/16 14:30 99.0 97 16 134/63 94 12/18/16 14:09 92 18 144/68 93 12/18/16 13:10 118 22 186/74 94 12/18/16 12:40 94 18 146/60 95 12/18/16 12:10 96.0 96 18 179/68 96 12/18/16 08:50 Nasal Cannula 2.00 12/18/16 08:08 93 21 12/18/16 08:05 110 12/18/16 08:00 98.1 111 16 166/76 94 12/18/16 05:09 98.4 87 20 145/70 95 12/17/16 23:42 97.7 82 20 151/69 97 12/17/16 21:22 98.1 84 20 144/65 97 12/17/16 20:20 Room Air 12/17/16 19:38 95 21 Intake & Output 12/18/16 12/18/16 07:00 19:00 Intake Total 720 ml 268 ml Output Total 500 ml Balance 220 ml 268 ml Intake Oral 720 ml IV Total 268 ml Output Urine Total 500 ml # Bowel Movements 5 Physical Exam CONSTITUTIONAL/GENERAL: This is obese, critically ill patient, lethargic. TUBES/LINES/DRAINS: PIV right, George. SKIN: No jaundice, rashes, or lesions. Ecchymoses on upper extremities. No wounds seen anteriorly. Skin temperature appropriate. Not diaphoretic. ENT: Difficult to assess hearing given LOC. Nose without bleeding or purulent drainage. Mouth closed, drooling. CARDIOVASCULAR: Regular rate and rhythm without murmurs, gallops, or rubs. No JVD. Bilateral UE and LE edema. RESPIRATORY/CHEST: Symmetric, unlabored respirations. Clear to auscultation. Breath sounds equal bilaterally. No wheezes, rales, or rhonchi. GASTROINTESTINAL: Protuberant. Abdomen soft, non-tender, nondistended. No guarding. Bowel sounds present. GENITOURINARY: Without palpable bladder distension. George catheter in place. MUSCULOSKELETAL: Extremities without clubbing, cyanosis, or edema. No joint tenderness or effusion noted. No calf tenderness. No mottling or clubbing. NEUROLOGICAL: Awake and alert, answers questions appropriately. Moves all extremities. PSYCHIATRIC: Awake and alert. . (SUKHDEV GERARD-Joseyln) Diagnostic Tests Laboratory Laboratory Tests Test 12/16/16 12/16/16 12/16/16 12/17/16 19:50 20:00 21:03 08:30 Prothrombin Time 15.3 SEC (9.8-11.6) Prothromb Time International 1.4 RATIO Ratio Activated Partial 33.5 SEC Thromboplast Time (24.3-30.1) Sodium Level 147 MEQ/L 149 MEQ/L (136-145) (136-145) Potassium Level 3.5 MEQ/L 3.5 MEQ/L (3.5-5.1) (3.5-5.1) Chloride Level 108 MEQ/L 112 MEQ/L (98-107) (98-107) Carbon Dioxide Level 29.9 MEQ/L 28.2 MEQ/L (21.0-32.0) (21.0-32.0) Anion Gap 9 MEQ/L (5-15) 9 MEQ/L (5-15) Blood Urea Nitrogen 70 MG/DL (7-18) 67 MG/DL (7-18) Creatinine 1.75 MG/DL 1.61 MG/DL (0.60-1.30) (0.60-1.30) Estimat Glomerular Filtration 39 ML/MIN (>89) 43 ML/MIN (>89) Rate Random Glucose 206 MG/DL 83 MG/DL (74-106) (74-106) Lactic Acid Level 1.6 mmol/L (0.4-2.0) Calcium Level 8.1 MG/DL 8.2 MG/DL (8.5-10.1) (8.5-10.1) Total Bilirubin 0.5 MG/DL (0.2-1.0) Aspartate Amino Transf 90 U/L (15-37) (AST/SGOT) Alanine Aminotransferase 65 U/L (12-78) (ALT/SGPT) Alkaline Phosphatase 1060 U/L (45-117) Total Protein 6.3 GM/DL (6.4-8.2) Albumin 1.8 GM/DL (3.4-5.0) Lipase 411 U/L (73-393) Blood Type O POSITIVE Antibody Screen NEGATIVE White Blood Count 6.3 TH/MM3 8.2 TH/MM3 (4.0-11.0) (4.0-11.0) Red Blood Count 2.18 MIL/MM3 2.71 MIL/MM3 (4.50-5.90) (4.50-5.90) Hemoglobin 6.2 GM/DL 7.7 GM/DL (13.0-17.0) (13.0-17.0) Hematocrit 18.7 % 24.4 % (39.0-51.0) (39.0-51.0) Mean Corpuscular Volume 85.8 FL 89.9 FL (80.0-100.0) (80.0-100.0) Mean Corpuscular Hemoglobin 28.2 PG 28.3 PG (27.0-34.0) (27.0-34.0) Mean Corpuscular Hemoglobin 32.9 % 31.5 % Concent (32.0-36.0) (32.0-36.0) Red Cell Distribution Width 19.7 % 18.2 % (11.6-17.2) (11.6-17.2) Platelet Count 104 TH/MM3 104 TH/MM3 (150-450) (150-450) Mean Platelet Volume 8.8 FL 8.4 FL (7.0-11.0) (7.0-11.0) Neutrophils (%) (Auto) 66.5 % 68.0 % (16.0-70.0) (16.0-70.0) Lymphocytes (%) (Auto) 20.0 % 18.1 % (9.0-44.0) (9.0-44.0) Monocytes (%) (Auto) 10.7 % 9.9 % (0.0-8.0) (0.0-8.0) Eosinophils (%) (Auto) 1.9 % (0.0-4.0) 2.9 % (0.0-4.0) Basophils (%) (Auto) 0.9 % (0.0-2.0) 1.1 % (0.0-2.0) Neutrophils # (Auto) 4.2 TH/MM3 5.6 TH/MM3 (1.8-7.7) (1.8-7.7) Lymphocytes # (Auto) 1.3 TH/MM3 1.5 TH/MM3 (1.0-4.8) (1.0-4.8) Monocytes # (Auto) 0.7 TH/MM3 0.8 TH/MM3 (0-0.9) (0-0.9) Eosinophils # (Auto) 0.1 TH/MM3 0.2 TH/MM3 (0-0.4) (0-0.4) Basophils # (Auto) 0.1 TH/MM3 0.1 TH/MM3 (0-0.2) (0-0.2) CBC Comment AUTO DIFF AUTO DIFF Differential Total Cells 100 100 Counted Neutrophils % (Manual) 52 % (16-70) 56 % (16-70) Band Neutrophils % 9 % (0-6) 11 % (0-6) Lymphocytes % 22 % (9-44) 12 % (9-44) Monocytes % 6 % (0-8) 7 % (0-8) Eosinophils % 1 % (0-4) 4 % (0-4) Neutrophils # (Manual) 4.5 TH/MM3 6.2 TH/MM3 (1.8-7.7) (1.8-7.7) Metamyelocytes 9 % (0-1) 3 % (0-1) Myelocytes 1 % (0-0) 5 % (0-0) Nucleated Red Blood Cells 2 /100 WBC (0-0) Differential Comment FINAL DIFF FINAL DIFF MANUAL MANUAL Platelet Estimate LOW (NORMAL) LOW (NORMAL) Platelet Morphology Comment NORMAL NORMAL (NORMAL) (NORMAL) Basophilic Stippling FAINT (NORMAL) Spherocytes 1+ (NORMAL) Ovalocytes 1+ (NORMAL) Keratocytes OCC (NORMAL) OCC (NORMAL) Urine Color YELLOW (YELLW/STRAW) Urine Turbidity CLOUDY (CLEAR) Urine pH 8.0 (5.0-8.5) Urine Specific [place] 1.018 (1.002-1.035) Urine Protein 100 mg/dL (NEG-TRACE) Urine Glucose (UA) NEG mg/dL (NEG) Urine Ketones NEG mg/dL (NEG) Urine Occult Blood NEG (NEG) Urine Nitrite POS (NEG) Urine Bilirubin NEG (NEG) Urine Urobilinogen LESS THAN 2.0 MG/DL (LESS THAN 2.0) Urine Leukocyte Esterase LARGE (NEG) Urine RBC 1 /hpf (0-3) Urine WBC 19 /hpf (0-5) Urine WBC Clumps FEW (NONE) Urine Squamous Epithelial <1 /hpf (0-5) Cells Urine Uric Acid Crystals OCC /hpf (NONE) Urine Bacteria MOD /hpf (NONE) Urine Mucus FEW /lpf (OCC) Microscopic Urinalysis Comment CATH-CULTURE IND Crossmatch Leukocyte-Reduced Red Blood Cells Blood Bank Comment Basophils % 1 % (0-2) Promyelocytes 1 % (0-0) Hematology Comments Test 12/17/16 12/17/16 12/18/16 10:50 13:15 08:25 Tumor Marker Alpha Fetoprotein 0.7 NG/ML (0.5-8.0) Carcinoembryonic Antigen 3208.2 NG/ML (0.2-5.0) CA 19-9 Antigen 191.3 U/ML (0.0-35.0) Ammonia 21 MCMOL/L 33 MCMOL/L (11-32) (11-32) White Blood Count 9.6 TH/MM3 (4.0-11.0) Red Blood Count 2.83 MIL/MM3 (4.50-5.90) Hemoglobin 8.0 GM/DL (13.0-17.0) Hematocrit 24.7 % (39.0-51.0) Mean Corpuscular Volume 87.4 FL (80.0-100.0) Mean Corpuscular Hemoglobin 28.4 PG (27.0-34.0) Mean Corpuscular Hemoglobin 32.5 % Concent (32.0-36.0) Red Cell Distribution Width 18.6 % (11.6-17.2) Platelet Count 136 TH/MM3 (150-450) Mean Platelet Volume 9.3 FL (7.0-11.0) Neutrophils (%) (Auto) 74.4 % (16.0-70.0) Lymphocytes (%) (Auto) 14.6 % (9.0-44.0) Monocytes (%) (Auto) 7.4 % (0.0-8.0) Eosinophils (%) (Auto) 2.4 % (0.0-4.0) Basophils (%) (Auto) 1.2 % (0.0-2.0) Neutrophils # (Auto) 7.2 TH/MM3 (1.8-7.7) Lymphocytes # (Auto) 1.4 TH/MM3 (1.0-4.8) Monocytes # (Auto) 0.7 TH/MM3 (0-0.9) Eosinophils # (Auto) 0.2 TH/MM3 (0-0.4) Basophils # (Auto) 0.1 TH/MM3 (0-0.2) CBC Comment AUTO DIFF Differential Total Cells 100 Counted Neutrophils % (Manual) 73 % (16-70) Band Neutrophils % 8 % (0-6) Lymphocytes % 5 % (9-44) Monocytes % 3 % (0-8) Eosinophils % 5 % (0-4) Basophils % 1 % (0-2) Neutrophils # (Manual) 8.3 TH/MM3 (1.8-7.7) Metamyelocytes 3 % (0-1) Myelocytes 2 % (0-0) Nucleated Red Blood Cells 3 /100 WBC (0-0) Differential Comment FINAL DIFF MANUAL Platelet Estimate LOW (NORMAL) Platelet Morphology Comment NORMAL (NORMAL) Keratocytes OCC (NORMAL) Sodium Level 140 MEQ/L (136-145) Potassium Level 3.9 MEQ/L (3.5-5.1) Chloride Level 105 MEQ/L (98-107) Carbon Dioxide Level 22.8 MEQ/L (21.0-32.0) Anion Gap 12 MEQ/L (5-15) Blood Urea Nitrogen 64 MG/DL (7-18) Creatinine 2.08 MG/DL (0.60-1.30) Estimat Glomerular Filtration 32 ML/MIN (>89) Rate Random Glucose 260 MG/DL (74-106) Calcium Level 7.9 MG/DL (8.5-10.1) Lactate Dehydrogenase 858 U/L (87-241) (SUKHDEV GERARD) Result Diagram: 12/18/1625 12/18/1625 Microbiology Microbiology Date/Time Procedure Status Source Growth 12/16/16 19:50 Aerobic Blood Culture - Preliminary Resulted Blood Peripheral NO GROWTH IN 2 DAYS 12/16/16 19:50 Anaerobic Blood Culture - Preliminary Resulted Blood Peripheral NO GROWTH IN 2 DAYS 12/16/16 19:55 Aerobic Blood Culture - Preliminary Resulted Blood Peripheral NO GROWTH IN 2 DAYS 12/16/16 19:55 Anaerobic Blood Culture - Preliminary Resulted Blood Peripheral NO GROWTH IN 2 DAYS 12/16/16 20:00 Urine Culture - Preliminary Resulted Urine Catheterized Urine Providencia Stuartii Gram Negative [facility] Last Impressions Liver Biopsy CT 12/18/16 06 Signed Impressions: Service Date/Time: Sunday, December 18, 2016 11:04 - CONCLUSION: Uncomplicated CT guided biopsy liver biopsy. Enrique Hopson MD Chest CT 12/18/16 06 Signed Impressions: Service Date/Time: Sunday, December 18, 2016 10:56 - CONCLUSION: 1. I do not see primary or metastatic disease to the chest. 2. Bones are sclerotic. This can be seen with metastatic disease and renal osteodystrophy. Lee Self MD FACR Chest X-Ray 12/16/161937 Signed Impressions: Service Date/Time: Friday, December 16, 2016 19:50 - CONCLUSION: Perihilar infiltrates on both sides. Sunny Zamarripa MD Head CT 12/16/16 0000 Signed Impressions: Service Date/Time: Friday, December 16, 2016 20:37 - CONCLUSION: 1. No acute intracranial abnormality. 2. 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 There is paranasal sinusitis as well, ethmoid and left sphenoid predominant Sunny Zamarripa MD Abdomen/Pelvis CT 12/16/16 0000 Signed Impressions: Service Date/Time: Friday, December 16, 2016 20:42 - CONCLUSION: 1. Noncontrast CT concerning for hepatic metastatic disease. Also suspected metastatic disease or renal failure associated changes of the bones. 2. No obstruction or acute inflammatory changes seen of the gastrointestinal tract. I don't convincingly see a GI tract mass. 3. Stable low and intermediate attenuation masses of both kidneys. Please see above. 4. Right greater the left consolidation and pleural fluid of the visualized lung bases. Sunny Zamarripa MD . (SUKHDEV GERARD [facility]) Assessment and Plan Disease Oriented Problem List: (1) Bilateral lower leg cellulitis (2) Bilateral lower extremity edema (3) DOLORES (acute kidney injury) (4) Diabetes type 2, uncontrolled (5) Metastatic disease (6) GI bleed (7) HTN (hypertension) (8) Mastoiditis (9) Weakness (10) UTI (urinary tract infection) (11) GERD (gastroesophageal reflux disease) (12) Anemia Symptom Scale: (1) Generalized weakness 0-10 Scale: Unable to quantify (2) Lethargy 0-10 Scale: 0 (3) Altered mental status 0-10 Scale: 0 Comment: improved Pertinent Non-Medical Issues Psychosocial: . 1 daughter. Spiritual: Yazdanism. Legal: Standard Living Will scanned into EMR completed 11/14/16, names his , Che Luna as designated health care surrogate. Ethical issues impacting care: none identified. . Important Contacts * Che Luna, / HCS: * Christy Allen, daughter: -resides in [place]. . Prognosis Mr. Munson is a 71 y/ morbid obese male with a medical history of DM type 2, HTN, chronic kidney disease, anemia, BPH and asthma with persistent GI bleed requiring transfusions and ongoing decline. Recent hospitalization for DKA, sepsis and severe anemia. Now found to have what appears to be mets disease to the liver, GI bleed refusing colonoscopy. Based on his pre-existing functional status and multiple acute/chronic comorbid illnesses, encephalopathy and infection patient is at high risk for complications, further decline and . . Code Status: No Code Plan * Standard Living Will scanned into EMR completed 11/14/16, names his , Che Luna as designated health care surrogate. * NO CODE - [place] DNR signed by patient scanned into EMR dated 11/13/16. * Spoke with patient and his . Medical update provided. He wants to await liver biopsy results before making further decisions regarding aggressive care vs considering hospice/ comfort care. * Symptoms: Weakness, multifactorial due to profound physical deconditioning and chronic comorbid illnesses. Altered mental status: possibly related to infection, general decline, malignancy? Lethargy: likely multifactorial, infection, decline and possible malignancy. * Palliative care contact information provided. * Palliative care will continue to follow-up with this patient for further clarification of goals of care. (SUKHDEV GERARD) Attestation To help prompt me to consider important information that might be impacting today's encounter and assessment, information from prior notes written by myself or my colleagues may have been "brought forward" into today's note. My signature on this note, however, is an attestation that I personally performed the exam, history, and/or decision-making noted today, and, unless otherwise indicated, the interactions with patient, family, and staff as well as the review of records all occurred today. I also attest that the listed assessment and stated plan reflect my best clinical judgment today based on the combination of historical information, prior notes, and today's exam/ interactions. When time spent is documented, it refers only to time spent today by the signer, or if indicated, combined time spent today by collaborating physician/nurse practitioner. (SUKHDEV GERARD) Collaborating MD Comments Chart reviewed. Case discussed with palliative care LEAD PERFORMANCE SUPPORT ANALYST. Above LEAD PERFORMANCE SUPPORT ANALYST note reviewed and I concur. . (Flaquito Garnica MD) SUKHDEV GERARD Dec 18, 2016 17:41 Flaquito Garnica MD Jan 19, 2017 08:01
[2016-12-18] MEDS: TAMSULOSIN HCL 0.4 MG CAP PO SCH (22:01)
[2016-12-18] MEDS: PANTOPRAZOLE SODIUM 40 MG VIAL IV PUSH SCH (22:01)
[2016-12-18] MEDS: SODIUM CHLOR 0.45% 1000 ML INJ 1,000 ML IV SCH (22:03)
[2016-12-19] VITALS (9 sets, daily range): BP systolic 122–161; BP diastolic 56–69; PULSE 86–103; RESP 18–20; TEMP 97.2–98.5; O2SAT 92–95
[2016-12-19] MEDS: PIPERACIL-TAZO 3.375 GM PREMIX 50 ML IV SCH ×3 (00:05→11:12)
[2016-12-19] MEDS: HYDROmorphone HCL 2 MG TAB PO PRN ×2 (00:05→20:13)
[2016-12-19] MEDS: ACETAMINOPHEN/HYDROcodone 325 MG/5 MG TAB PO PRN ×5 (02:51→22:36)
[2016-12-19] MEDS: metroNIDAZOLE 500 MG INJ 100 ML IV SCH ×3 (04:51→20:14)
[2016-12-19 06:16] LABS: BASOPHIL # 0.1 TH/MM3 (0-0.2); BASOPHIL % 1.1 % (0.0-2.0); EOSINOPHIL # 0.2 TH/MM3 (0-0.4); EOSINOPHIL % 2.7 % (0.0-4.0); HEMATOCRIT 22.3 % (39.0-51.0); LYMPH % 12.4 % (9.0-44.0); MEAN CELL VOLUME 88.8 FL (80.0-100.0); MEAN CORPUSCULAR HEMOGLOBIN 28.8 PG (27.0-34.0); MEAN CORPUSCULAR HGB CONC 32.4 % (32.0-36.0); MONO % 7.7 % (0.0-8.0); NEUT % 76.1 % (16.0-70.0); PLATELET COUNT 125 TH/MM3 (150-450); RED BLOOD COUNT 2.51 MIL/MM3 (4.50-5.90); RED CELL DISTRIBUTION WIDTH 18.3 % (11.6-17.2); WHITE BLOOD COUNT 7.9 TH/MM3 (4.0-11.0)
[2016-12-19] MEDS: ZINC OXIDE 20% OINT 30 GM TUBE TOPICAL SCH ×3 (06:19→20:15)
[2016-12-19] MEDS: INSULIN ASPART SUPPLEMENTAL SCALE SQ SCH ×4 (06:19→22:36)
[2016-12-19] MEDS: CHOLESTYRAMINE 4 GM PACKET PO SCH ×3 (06:19→20:15)
[2016-12-19 06:25] LABS: HEMO FLAGS AUTO DIFF
[2016-12-19 06:46] LABS: BICARBONATE 24.5 MEQ/L (21.0-32.0); POTASSIUM 3.5 MEQ/L (3.5-5.1)
[2016-12-19] MEDS: RESP: ALBUTEROL 2.5 MG/IPRATROPIUM 0.5 MG NEB (SCH) NEB ×3 (07:22→15:12)
[2016-12-19] MEDS: BUMETANIDE 1 MG TAB PO SCH ×2 (08:41→20:12)
[2016-12-19] MEDS: VANCOMYCIN 500 MG VIAL (FOR ORAL USE ONLY) PO SCH ×4 (08:42→20:13)
[2016-12-19] MEDS: SODIUM CHLORIDE 0.9% FLUSH 5 ML FLUSH FLUSH SCH ×2 (08:42→20:15)
[2016-12-19 08:53] LABS: BANDS 6 % (0-6); BASOPHILS 1 % (0-2); CORRECTED NUCLEATED RBC 3 /100 WBC (0-0); EOSINOPHILS 6 % (0-4); METAMYELOCYTES 2 % (0-1); NEUTROPHIL # MANUAL DIFF 5.5 TH/MM3 (1.8-7.7); PLATELET ESTIMATE SMEAR LOW (NORMAL); POLYS (SEG NEUTROPHILS) 61 % (16-70); SCAN/DIFF FINAL DIFF MANUAL; WBC DIFF SAMPLE 100
[2016-12-19 08:54] LABS: KERATOCYTES OCC (NORMAL); PLATELET MORPHOLOGY ENLARGED (NORMAL)
[2016-12-19] MEDS ORDERED: FAMOTIDINE 20 MG TAB PO ONE (09:15)
--- NOTE | 2016-12-19 11:32 | HHI.FPPN ---
Subjective Remarks V WEAK C/O GENL PAIN D/W RN Objective Vitals Vital Signs Date Time Temp Pulse Resp B/P Pulse Ox O2 Delivery O2 Flow Rate FiO2 12/19/16 08:45 Room Air 12/19/16 08:09 100 12/19/16 05:20 Room Air 12/19/16 05:20 97.9 103 18 161/69 92 12/18/16 23:52 97.3 108 18 130/72 96 12/18/16 23:52 Room Air 12/18/16 21:35 93 12/18/16 20:13 Room Air 12/18/16 20:13 98.3 106 18 116/56 93 12/18/16 16:12 94 21 12/18/16 16:00 98.2 110 16 113/56 92 12/18/16 14:30 99.0 97 16 134/63 94 12/18/16 14:09 92 18 144/68 93 12/18/16 13:10 118 22 186/74 94 12/18/16 12:40 94 18 146/60 95 12/18/16 12:10 96.0 96 18 179/68 96 I/O 12/18/16 12/18/16 12/18/16 12/19/16 12/19/16 12/19/16 07:00 15:00 23:00 07:00 15:00 23:00 Intake Total 240 ml 508 ml 1244 ml 946 ml Output Total 100 ml 300 ml 125 ml 925 ml Balance 140 ml 208 ml 1119 ml 21 ml Intake Oral 240 ml 240 ml 600 ml 360 ml IV Total 268 ml 644 ml 586 ml Output Urine Total 100 ml 300 ml 125 ml 925 ml # Bowel Movements 4 1 2 0 Result Diagram: 12/19/1635 12/19/1635 Objective Remarks GENERAL: SKIN: Warm and dry. Stasis changes and cellulitis of BLE's HEAD: Atraumatic. Normocephalic. EYES: Pupils equal and round. No scleral icterus. No injection or drainage. ENT: No nasal bleeding or discharge. Mucous membranes pink and moist. NECK: Trachea midline. No JVD. CARDIOVASCULAR: Regular rate and rhythm. RESPIRATORY: No accessory muscle use. Clear to auscultation. Breath sounds equal bilaterally. GASTROINTESTINAL: Abdomen soft, non-tender, nondistended. Hepatic and splenic margins not palpable. MUSCULOSKELETAL: two plus edema BLE's NEUROLOGICAL: Awake and alert. No obvious cranial nerve deficits. Motor grossly within normal limits. 1 out of 5 muscle strength in the arms and legs. Normal speech. PSYCHIATRIC: Appropriate mood and affect; insight and judgment normal. Medications and IVs Current Medications Medications (Trade) Dose Ordered Sig/Siomara Route Start Time Stop Time Status Last Admin (Bumetanide) 1 mg BID PO 12/17/16 09:00 12/19/16 08:41 (Flomax) 0.4 mg HS PO 12/17/16 21:00 12/18/16 22:01 (VANCOMYCIN for oral use only) 250 mg QID PO 12/17/16 09:00 12/19/16 08:42 (Zinc Oxide 20% Oint) 1 applic Q8HR TOPICAL 12/17/16 06:00 12/19/16 06:19 (NS Flush) 2 ml UNSCH PRN FLUSH 12/16/16 22:30 (NS Flush) 2 ml BID FLUSH 12/17/16 09:00 12/19/16 08:42 (Tylenol) 650 mg Q4H PRN PO 12/16/16 22:30 (Zofran Inj) 4 mg Q6H PRN IVP 12/16/16 22:30 12/18/16 05:31 (Milk Of Magnesia Liq) 30 ml Q12H PRN PO 12/16/16 22:30 (Senokot) 17.2 mg Q12H PRN PO 12/16/16 22:30 (Ambien) 5 mg HS PRN PO 12/16/16 22:30 (Narcan Inj) 0.4 mg UNSCH PRN IV 12/16/16 22:30 (Catapres) 0.1 mg Q6H PRN PO 12/16/16 22:30 Pantoprazole Sodium 40 mg 40 mg Q24H IV PUSH 12/16/16 23:00 12/18/16 22:01 Metronidazole 100 ml @ 100 mls/hr Q8H IV 12/17/16 04:00 12/19/16 11:12 Sodium Chloride 1,000 ml @ 42 mls/hr [id number] IV 12/16/16 22:45 12/18/16 22:03 (Zosyn 3.375 Gm Premix) 50 ml @ 100 mls/hr Q6H IV 12/17/16 00:00 12/19/16 11:12 (D50w (Vial) Inj) 25 ml UNSCH PRN IV PUSH 12/17/16 09:00 (Glucagon Inj) 1 mg UNSCH PRN OTHER 12/17/16 09:00 (Questran 4 Gm Pkt) 4 gm Q8HR PO 12/18/16 14:00 12/19/16 06:19 (Dilaudid) 1 mg Q6H PRN PO 12/18/16 12:15 12/19/16 00:05 ([place] 5-325 Mg) 1 tab Q4H PRN PO 12/18/16 16:30 12/19/16 08:42 A/P Assessment and Plan AMS FTT LIVER METS ?COLON CA. s/p LIVER BX DEC 18. ?RENAL METS GIB BLOOD LOSS ANEMIA. TRANSFUSED PRBC'S C DIF UTI VS ASYMP BACTERIURIA CHRONIC CARMEN HCAP DM BLE CELLULITIS PLAN: IV ABX STOP ZOSYN FOR NOW DUE TO C DIF IVF BLOOD CULTURES UA C/S PROTONIX IV INSULIN PALLIATIVE CONSULT ONCOLOGY CONSULT GI CONSULT ID CONSULT FOR C DIF, UTI, PNA AM LABS SEE MY ORDERS PLEASE. Yon Stallings MD Dec 19, 2016 11:31
--- NOTE | 2016-12-19 12:48 | PD.ID.CON ---
History of Present Illness Service ID Consult Requested By Reason for Consult Eval and Mment of PNA, cellulitis, Cdiff Primary Care Physician [facility] Diagnoses: History of Present Illness is a 71 y/o CM with PMHx of DM type 2, hypertension, morbid obesity , chronic kidney disease, anemia, BPH and asthma. He was previously admitted to [facility] [place] 11/06/16 - 11/16/16 with DKA/sepsis. He was discharged to [facility] for rehab. On 11/27/16 he presented to ER with anemia for blood transfusion. He had been refusing GI workup. He returned to [facility] post transfusion. Reportedly he has been declining medical care last few times. Patient now presents to [facility] ER on 12/16/16 with abdominal pain, distention, anemia. Patient was noted to have a WBC 6.3, hgb 6.2, hct 18.7, platelets 104. Sodium 147, potassium 3.5, Creatinine 1.75, BUN 70, GFR 39. Total bilirubin 0.5, AST 90 , ALT 65, alk phos 1060, Total protein 6.3, albumin 1.8, Lactic Acid 1.6. Urinalysis positive leukocyte esterase, bacteria and mucus. Culture positive for GNR and Providencia. Blood cultures negative so far. Chest x-ray revealed bilateral hilar infiltrates. CT head no acute intracranial abnormality, chronic left mastoiditis and sinusitis. CT abdomen/pelvis revealed marked heterogenicity of the liver with numerous vague hypodense masses measuring up to 5 cm in size, concerning for metastatic disease; right > left consolidation and pleural fluid of lung bases; new diffuse mottled sclerosis of visualized osseous structures; no obstruction or acute inflammatory changes seen in GI tract, no obvious GI mass. Patient also has had ongoing bilateral LE cellulitis due to edema. He is non compliant with leg elevation per records. Patient has refused GI workup despite recurrent anemia with GIB and multiple transfusions. Patient has had steady decline per reports and multiple ER visits. Patient reportedly was AMS at [facility] and labs showed Hgb 6 and patient sent to ED for further evaluaton. 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 ID is consulted for evaluation and Mment of Pneumonia, bilateral LE cellulitis, Cdiff positive diarrhea present on admission, liver lesions. Review of Systems ROS Limitations: Poor Historian Gastrointestinal: COMPLAINS OF: Bloody stools, Diarrhea Past Family Social History Allergies: Coded Allergies: Azithromycin (Verified Allergy, Severe, Rash/hives, 12/16/16) Toradol (Verified Allergy, Severe, Hives, 12/16/16) Tramadol (Verified Allergy, Intermediate, RASH/HIVES, 12/16/16) Cipro (Verified Allergy, Unknown, 12/16/16) Ativan (Verified Adverse Reaction, Severe, Agitation, combative, 12/16/16) Flu Vaccine (Verified Adverse Reaction, Severe, Chest pain, 12/16/16) Past Medical History C-diff DM, type 2 Morbid obesity Depression Chronic pedal edema HTN CKD CAD Anemia of chronic disease BPH, with urinary obstruction -chronic indwelling George use since May 2016 Asthma Bilateral legs cellulitis Neuropathy Past Surgical History Cholecystectomy Cystoscopy Reported Medications Reported Meds & Active Scripts Active Lortab (Hydrocodone-Acetaminophen) 5-325 Mg Tab 1 Tab PO Q4H PRN Lovenox Inj (Enoxaparin Sodium) 30 Mg/0.3 Ml Syr 30 Mg SQ Q24H 10 Days Lantus Inj (Insulin Glargine) 100 Unit/Ml Inj 35 Units SQ BIDAC 90 Days Reported Florastor (Saccharomyces Boulardii) 250 Mg Cap 250 Mg PO BID Loperamide (Loperamide HCl) 2 Mg Cap 2 Mg PO DIRECTED PRN One capsule after each loose stool. Not to exceed 8 capsules per day. Doxycycline Hyclate 100 Mg Cap 100 Mg PO BID Colace (Docusate Sodium) 100 Mg Cap 100 Mg PO TID PRN Bumex (Bumetanide) 1 Mg Tab 1 Mg PO BID Aspirin 81 Mg Chew 81 Mg CHEW DAILY Balmex Adult Care (Zinc Oxide (Topical)) 11.3 % Cre 1 Applic TOPICAL Q8HR Apply to excoriated area on sacrum q-shift First-Vancomycin 50 Liq (Vancomycin HCl) 50 Mg/Ml Danielle 250 Mg PO QID 10 Days Proventil Hfa 6.7 GM Inh (Albuterol Sulfate) 90 Mcg/Act Aer 2 Puff INH Q6H PRN Prilosec (Omeprazole) 20 Mg Cap 20 Mg PO DAILY Multi-Vitamin/Minerals (Multiple Vitamins W/ Minerals) 1 Tab Tab 1 Tab PO DAILY Iron (Ferrous Sulfate) 325 Mg Tab 325 Mg PO BID In the am & at bedtime Escitalopram (Escitalopram Oxalate) 10 Mg Tab 10 Mg PO DAILY Hydroxyzine HCl 25 Mg Tab 25 Mg PO Q6HR PRN Novolin R Inj (Insulin Human Regular) 1,000 Unit/10 Ml Vial 0 SQ DIRECTED Sliding Scale As Directed: 60-149=0 UNITS, 150-200=2 UNITS, 201-250=4 UNITS, 251-300=6 UNITS, 301-350=8 UNITS, 351-400=10 UNITS, 401-450=12 UNITS, 451-500=14 UNITS, 501+=18 UNITS & CALL Lisinopril 40 Mg Tab 40 Mg PO DAILY Metoprolol Tartrate 50 Mg Tab 50 Mg PO BID Gabapentin 600 Mg Tab 600 Mg PO TID Tamsulosin (Tamsulosin HCl) 0.4 Mg Cap 0.4 Mg PO HS Active Ordered Medications Current Medications Medications (Trade) Dose Ordered Sig/Siomara Route Start Time Stop Time Status Last Admin (Bumetanide) 1 mg BID PO 12/17/16 09:00 12/19/16 20:12 (Flomax) 0.4 mg HS PO 12/17/16 21:00 12/19/16 20:13 (VANCOMYCIN for oral use only) 250 mg QID PO 12/17/16 09:00 12/19/16 20:13 (Zinc Oxide 20% Oint) 1 applic Q8HR TOPICAL 12/17/16 06:00 12/19/16 20:15 (NS Flush) 2 ml UNSCH PRN FLUSH 12/16/16 22:30 (NS Flush) 2 ml BID FLUSH 12/17/16 09:00 12/19/16 20:15 (Tylenol) 650 mg Q4H PRN PO 12/16/16 22:30 (Zofran Inj) 4 mg Q6H PRN IVP 12/16/16 22:30 12/18/16 05:31 (Milk Of Magnesia Liq) 30 ml Q12H PRN PO 12/16/16 22:30 (Senokot) 17.2 mg Q12H PRN PO 12/16/16 22:30 (Ambien) 5 mg HS PRN PO 12/16/16 22:30 (Narcan Inj) 0.4 mg UNSCH PRN IV 12/16/16 22:30 (Catapres) 0.1 mg Q6H PRN PO 12/16/16 22:30 Pantoprazole Sodium 40 mg 40 mg Q24H IV PUSH 12/16/16 23:00 12/19/16 20:13 Metronidazole 100 ml @ 100 mls/hr Q8H IV 12/17/16 04:00 12/19/16 20:14 (1/2 NS 1000 ml Inj) 1,000 ml @ 42 mls/hr [id number] IV 12/16/16 22:45 12/19/16 20:15 (D50w (Vial) Inj) 25 ml UNSCH PRN IV PUSH 12/17/16 09:00 (Glucagon Inj) 1 mg UNSCH PRN OTHER 12/17/16 09:00 (Questran 4 Gm Pkt) 4 gm Q8HR PO 12/18/16 14:00 12/19/16 20:15 (Dilaudid) 1 mg Q6H PRN PO 12/18/16 12:15 12/19/16 20:13 ([place] 5-325 Mg) 1 tab Q4H PRN PO 12/18/16 16:30 12/19/16 17:01 Family History Father had DM type 2, heart failure and HTN Mother had dementia -92 y/o and alive Sister from MVA Social History Tobacco: denies Alcohol: denies Prescription med abuse: denies Illicits: denies .Retired. College degree. to [employer]. Has 1 child: Julia Allen who resides in [place]. . Physical Exam Vital Signs Vital Signs Date Time Temp Pulse Resp B/P Pulse Ox O2 Delivery O2 Flow Rate FiO2 12/19/16 08:45 Room Air 12/19/16 08:09 100 12/19/16 05:20 Room Air 12/19/16 05:20 97.9 103 18 161/69 92 12/18/16 23:52 97.3 108 18 130/72 96 12/18/16 23:52 Room Air 12/18/16 21:35 93 12/18/16 20:13 Room Air 12/18/16 20:13 98.3 106 18 116/56 93 12/18/16 16:12 94 21 12/18/16 16:00 98.2 110 16 113/56 92 12/18/16 14:30 99.0 97 16 134/63 94 12/18/16 14:09 92 18 144/68 93 12/18/16 13:10 118 22 186/74 94 Physical Exam GENERAL: This is a well-nourished, well-developed patient, in no apparent distress. SKIN: No rashes. Cool and dry. HEAD: Atraumatic. Normocephalic. No temporal or scalp tenderness. EYES: Pupils equal round and reactive. Extraocular motions intact. No scleral icterus. No injection or drainage. ENT: Nose without bleeding, purulent drainage or septal hematoma. Throat without erythema, tonsillar hypertrophy or exudate. Uvula midline. Airway patent. NECK: Trachea midline. Supple, nontender, no meningeal signs. CARDIOVASCULAR: HS audible RESPIRATORY: Clear to auscultation. Breath sounds equal bilaterally. No wheezes , rales, or rhonchi. GASTROINTESTINAL: Abdomen soft, non-tender, nondistended. Obese MUSCULOSKELETAL: Extremities without clubbing, cyanosis, or edema. No joint tenderness, effusion, or edema noted. No calf tenderness. Negative Homans sign bilaterally. NEUROLOGICAL: Awake and alert. Grossly non focal Psych: cooperative IV line sites with no e/o infection. Laboratory Laboratory Tests Test 12/19/16 05:35 White Blood Count 7.9 Red Blood Count 2.51 Hemoglobin 7.2 Hematocrit 22.3 Mean Corpuscular Volume 88.8 Mean Corpuscular Hemoglobin 28.8 Mean Corpuscular Hemoglobin 32.4 Concent Red Cell Distribution Width 18.3 Platelet Count 125 Mean Platelet Volume 9.3 Neutrophils (%) (Auto) 76.1 Lymphocytes (%) (Auto) 12.4 Monocytes (%) (Auto) 7.7 Eosinophils (%) (Auto) 2.7 Basophils (%) (Auto) 1.1 Neutrophils # (Auto) 6.0 Lymphocytes # (Auto) 1.0 Monocytes # (Auto) 0.6 Eosinophils # (Auto) 0.2 Basophils # (Auto) 0.1 CBC Comment AUTO DIFF Differential Total Cells 100 Counted Neutrophils % (Manual) 61 Band Neutrophils % 6 Lymphocytes % 19 Monocytes % 5 Eosinophils % 6 Basophils % 1 Neutrophils # (Manual) 5.5 Metamyelocytes 2 Nucleated Red Blood Cells 3 Differential Comment FINAL DIFF MANUAL Platelet Estimate LOW Platelet Morphology Comment ENLARGED Keratocytes OCC Sodium Level 143 Potassium Level 3.5 Chloride Level 107 Carbon Dioxide Level 24.5 Anion Gap 12 Blood Urea Nitrogen 62 Creatinine 2.27 Estimat Glomerular Filtration 29 Rate Random Glucose 341 Calcium Level 8.1 Date/Time Procedure Status Source Growth 12/16/16 20:00 Urine Culture - Preliminary Resulted Urine Catheterized Urine Providencia Stuartii Gram Negative Wilmer 12/16/16 19:55 Aerobic Blood Culture - Preliminary Resulted Blood Peripheral NO GROWTH IN 3 DAYS 12/16/16 19:55 Anaerobic Blood Culture - Preliminary Resulted Blood Peripheral NO GROWTH IN 3 DAYS Result Diagram: 12/19/16 0535 12/19/16 0535 Imaging Last Impressions Liver Biopsy CT 12/18/16 06 Signed Impressions: Service Date/Time: Sunday, December 18, 2016 11:04 - CONCLUSION: Uncomplicated CT guided biopsy liver biopsy. Enrique Hopson MD Chest CT 12/18/16 0600 Signed Impressions: Service Date/Time: Sunday, December 18, 2016 10:56 - CONCLUSION: 1. I do not see primary or metastatic disease to the chest. 2. Bones are sclerotic. This can be seen with metastatic disease and renal osteodystrophy. Lee Self MD FACR Chest X-Ray 12/16/16 193 Signed Impressions: Service Date/Time: Friday, December 16, 2016 19:50 - CONCLUSION: Perihilar infiltrates on both sides. Sunny Zamarripa MD Head CT 12/16/16 0000 Signed Impressions: Service Date/Time: Friday, December 16, 2016 20:37 - CONCLUSION: 1. No acute intracranial abnormality. 2. 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 There is paranasal sinusitis as well, ethmoid and left sphenoid predominant Sunny Zamarripa MD Abdomen/Pelvis CT 12/16/16 0000 Signed Impressions: Service Date/Time: Friday, December 16, 2016 20:42 - CONCLUSION: 1. Noncontrast CT concerning for hepatic metastatic disease. Also suspected metastatic disease or renal failure associated changes of the bones. 2. No obstruction or acute inflammatory changes seen of the gastrointestinal tract. I don't convincingly see a GI tract mass. 3. Stable low and intermediate attenuation masses of both kidneys. Please see above. 4. Right greater the left consolidation and pleural fluid of the visualized lung bases. Sunny Zamarripa MD Assessment and Plan Assessment and Plan PNA: atypical vs CAP vs aspiration given AMS prior to admission Gram negative UTI: catheter present on admission. Bilateral LE cellulitis with scabs. Cdiff positive was being treated at [facility] on admission. Liver biopsy: small cell carcinoma Recs: DC all IV antibiotics. No urinary symptoms. More than one organism ? contaminant. Given diarrhea and cdiff: recommend only treating with Vanco oral and flagyl oral. Bilateral LE cellulitis: leg elevation, fluid restriction. Will follow prn. Appreciate palliative care help. Pathology results to be d/w family to help address goals of care. Tana Law MD Dec 19, 2016 12:48
[2016-12-19 12:53] LABS: APTT (PATIENT) 26.8 SEC (24.3-30.1); INTERNATIONAL NORMALIZED RATIO 1.3 RATIO; PROTHROMBIN TIME - PATIENT 14.7 SEC (9.8-11.6)
--- NOTE | 2016-12-19 15:45 | HHI.HCPN ---
Reason for visit a. To assist with evaluation and management of symptoms including: pain, weakness. b. To assist medical decision maker(s) with: better understanding of current medical conditions; weighing benefits/burdens of medical treatment options; making medical treatment decisions. . (SUKHDEV GERARD) Subjective/Interval History Patient was seen and examined. at beside. He is awake and alert, speech is clear today. Eating lunch from [employer] upon my arrival. He and his continue to ask about prognosis if he has advanced cancer, explained likely weeks to months. He reports pain in bladder overnight, relieved after catheter was changed. Reviewed urinalysis positive for infection, ID (Dr. Shanon Law) following. Intermittent abdominal pain relieved with PRN Hydrocodone. Will continue to monitor pain. Vital signs stable. Hemoglobin 7.2. Creatinine increasing 2.27. Liver biopsy pathology pending. . Family/friend interactions Spoke with patient and his . Medical update provided. He wants to await liver biopsy results before making further decisions regarding aggressive care vs considering hospice/ comfort care. Hospice consulted, they want to meet with [facility] to get more information about services as they are considering options upon discharge anticipating treatment for cancer will not be an option - not yet ready to make a final decision. Would like to meet with hospice 12/20 around 3pm when is here. . (SUKHDEV GERARD) Advance Directives Living Will: Copy in medical record Health Care Surrogate: Copy in medical record (SUKHDEV GERARD) Advance Directive Specifics Health Care Surrogate(s): Standard Living Will scanned into EMR completed 11/14/16, names his , Che Luna as designated health care surrogate. . Significant change in goals: NO CODE. Spoke with patient and his . Medical update provided. He wants to await liver biopsy results before making further decisions regarding aggressive care vs considering hospice/ comfort care. Hospice consulted, they want to meet with [facility] to get more information about services as they are considering options upon discharge anticipating treatment for cancer will not be an option - not yet ready to make a final decision. Would like to meet with hospice 12/20 around 3pm when is here. . (SUKHDEV GERARD) Objective Vital Signs Date Time Temp Pulse Resp B/P Pulse Ox O2 Delivery O2 Flow Rate FiO2 12/19/16 08:45 Room Air 12/19/16 08:09 100 12/19/16 05:20 Room Air 12/19/16 05:20 97.9 103 18 161/69 92 12/18/16 23:52 97.3 108 18 130/72 96 12/18/16 23:52 Room Air 12/18/16 21:35 93 12/18/16 20:13 Room Air 12/18/16 20:13 98.3 106 18 116/56 93 12/18/16 16:12 94 21 12/18/16 16:00 98.2 110 16 113/56 92 Intake & Output 12/19/16 12/19/16 07:00 19:00 Intake Total 2190 ml 436 ml Output Total 1050 ml Balance 1140 ml 436 ml Intake Oral 960 ml IV Total 1230 ml 436 ml Output Urine Total 1050 ml # Bowel Movements 2 Physical Exam CONSTITUTIONAL/GENERAL: This is obese, critically ill patient, lethargic. TUBES/LINES/DRAINS: PIV right, George. SKIN: No jaundice, rashes, or lesions. Ecchymoses on upper extremities. No wounds seen anteriorly. Skin temperature appropriate. Not diaphoretic. ENT: Hearing adequate. Nose without bleeding or purulent drainage. Mouth closed , drooling. CARDIOVASCULAR: Regular rate and rhythm without murmurs, gallops, or rubs. No JVD. Bilateral UE and LE edema. RESPIRATORY/CHEST: Symmetric, unlabored respirations. Clear to auscultation. Breath sounds equal bilaterally. No wheezes, rales, or rhonchi. GASTROINTESTINAL: Protuberant. Abdomen soft, non-tender, nondistended. No guarding. Bowel sounds present. GENITOURINARY: Without palpable bladder distension. George catheter in place. MUSCULOSKELETAL: Extremities without clubbing, cyanosis, or edema. No joint tenderness or effusion noted. No calf tenderness. No mottling or clubbing. NEUROLOGICAL: Awake and alert, answers questions appropriately. Moves all extremities. PSYCHIATRIC: Awake and alert. . (SUKHDEV GERARD-Joselyn) Diagnostic Tests Laboratory Laboratory Tests Test 12/16/16 12/16/16 12/16/16 12/17/16 19:50 20:00 21:03 08:30 Prothrombin Time 15.3 SEC (9.8-11.6) Prothromb Time International 1.4 RATIO Ratio Activated Partial 33.5 SEC Thromboplast Time (24.3-30.1) Sodium Level 147 MEQ/L 149 MEQ/L (136-145) (136-145) Potassium Level 3.5 MEQ/L 3.5 MEQ/L (3.5-5.1) (3.5-5.1) Chloride Level 108 MEQ/L 112 MEQ/L (98-107) (98-107) Carbon Dioxide Level 29.9 MEQ/L 28.2 MEQ/L (21.0-32.0) (21.0-32.0) Anion Gap 9 MEQ/L (5-15) 9 MEQ/L (5-15) Blood Urea Nitrogen 70 MG/DL (7-18) 67 MG/DL (7-18) Creatinine 1.75 MG/DL 1.61 MG/DL (0.60-1.30) (0.60-1.30) Estimat Glomerular Filtration 39 ML/MIN (>89) 43 ML/MIN (>89) Rate Random Glucose 206 MG/DL 83 MG/DL (74-106) (74-106) Lactic Acid Level 1.6 mmol/L (0.4-2.0) Calcium Level 8.1 MG/DL 8.2 MG/DL (8.5-10.1) (8.5-10.1) Total Bilirubin 0.5 MG/DL (0.2-1.0) Aspartate Amino Transf 90 U/L (15-37) (AST/SGOT) Alanine Aminotransferase 65 U/L (12-78) (ALT/SGPT) Alkaline Phosphatase 1060 U/L (45-117) Total Protein 6.3 GM/DL (6.4-8.2) Albumin 1.8 GM/DL (3.4-5.0) Lipase 411 U/L (73-393) Blood Type O POSITIVE Antibody Screen NEGATIVE White Blood Count 6.3 TH/MM3 8.2 TH/MM3 (4.0-11.0) (4.0-11.0) Red Blood Count 2.18 MIL/MM3 2.71 MIL/MM3 (4.50-5.90) (4.50-5.90) Hemoglobin 6.2 GM/DL 7.7 GM/DL (13.0-17.0) (13.0-17.0) Hematocrit 18.7 % 24.4 % (39.0-51.0) (39.0-51.0) Mean Corpuscular Volume 85.8 FL 89.9 FL (80.0-100.0) (80.0-100.0) Mean Corpuscular Hemoglobin 28.2 PG 28.3 PG (27.0-34.0) (27.0-34.0) Mean Corpuscular Hemoglobin 32.9 % 31.5 % Concent (32.0-36.0) (32.0-36.0) Red Cell Distribution Width 19.7 % 18.2 % (11.6-17.2) (11.6-17.2) Platelet Count 104 TH/MM3 104 TH/MM3 (150-450) (150-450) Mean Platelet Volume 8.8 FL 8.4 FL (7.0-11.0) (7.0-11.0) Neutrophils (%) (Auto) 66.5 % 68.0 % (16.0-70.0) (16.0-70.0) Lymphocytes (%) (Auto) 20.0 % 18.1 % (9.0-44.0) (9.0-44.0) Monocytes (%) (Auto) 10.7 % 9.9 % (0.0-8.0) (0.0-8.0) Eosinophils (%) (Auto) 1.9 % (0.0-4.0) 2.9 % (0.0-4.0) Basophils (%) (Auto) 0.9 % (0.0-2.0) 1.1 % (0.0-2.0) Neutrophils # (Auto) 4.2 TH/MM3 5.6 TH/MM3 (1.8-7.7) (1.8-7.7) Lymphocytes # (Auto) 1.3 TH/MM3 1.5 TH/MM3 (1.0-4.8) (1.0-4.8) Monocytes # (Auto) 0.7 TH/MM3 0.8 TH/MM3 (0-0.9) (0-0.9) Eosinophils # (Auto) 0.1 TH/MM3 0.2 TH/MM3 (0-0.4) (0-0.4) Basophils # (Auto) 0.1 TH/MM3 0.1 TH/MM3 (0-0.2) (0-0.2) CBC Comment AUTO DIFF AUTO DIFF Differential Total Cells 100 100 Counted Neutrophils % (Manual) 52 % (16-70) 56 % (16-70) Band Neutrophils % 9 % (0-6) 11 % (0-6) Lymphocytes % 22 % (9-44) 12 % (9-44) Monocytes % 6 % (0-8) 7 % (0-8) Eosinophils % 1 % (0-4) 4 % (0-4) Neutrophils # (Manual) 4.5 TH/MM3 6.2 TH/MM3 (1.8-7.7) (1.8-7.7) Metamyelocytes 9 % (0-1) 3 % (0-1) Myelocytes 1 % (0-0) 5 % (0-0) Nucleated Red Blood Cells 2 /100 WBC (0-0) Differential Comment FINAL DIFF FINAL DIFF MANUAL MANUAL Platelet Estimate LOW (NORMAL) LOW (NORMAL) Platelet Morphology Comment NORMAL NORMAL (NORMAL) (NORMAL) Basophilic Stippling FAINT (NORMAL) Spherocytes 1+ (NORMAL) Ovalocytes 1+ (NORMAL) Keratocytes OCC (NORMAL) OCC (NORMAL) Urine Color YELLOW (YELLW/STRAW) Urine Turbidity CLOUDY (CLEAR) Urine pH 8.0 (5.0-8.5) Urine Specific [place] 1.018 (1.002-1.035) Urine Protein 100 mg/dL (NEG-TRACE) Urine Glucose (UA) NEG mg/dL (NEG) Urine Ketones NEG mg/dL (NEG) Urine Occult Blood NEG (NEG) Urine Nitrite POS (NEG) Urine Bilirubin NEG (NEG) Urine Urobilinogen LESS THAN 2.0 MG/DL (LESS THAN 2.0) Urine Leukocyte Esterase LARGE (NEG) Urine RBC 1 /hpf (0-3) Urine WBC 19 /hpf (0-5) Urine WBC Clumps FEW (NONE) Urine Squamous Epithelial <1 /hpf (0-5) Cells Urine Uric Acid Crystals OCC /hpf (NONE) Urine Bacteria MOD /hpf (NONE) Urine Mucus FEW /lpf (OCC) Microscopic Urinalysis Comment CATH-CULTURE IND Crossmatch Leukocyte-Reduced Red Blood Cells Blood Bank Comment Basophils % 1 % (0-2) Promyelocytes 1 % (0-0) Hematology Comments Test 12/17/16 12/17/16 12/18/16 12/19/16 10:50 13:15 08:25 05:35 Tumor Marker Alpha Fetoprotein 0.7 NG/ML (0.5-8.0) Carcinoembryonic Antigen 3208.2 NG/ML (0.2-5.0) CA 19-9 Antigen 191.3 U/ML (0.0-35.0) Ammonia 21 MCMOL/L 33 MCMOL/L (11-32) (11-32) White Blood Count 9.6 TH/MM3 7.9 TH/MM3 (4.0-11.0) (4.0-11.0) Red Blood Count 2.83 MIL/MM3 2.51 MIL/MM3 (4.50-5.90) (4.50-5.90) Hemoglobin 8.0 GM/DL 7.2 GM/DL (13.0-17.0) (13.0-17.0) Hematocrit 24.7 % 22.3 % (39.0-51.0) (39.0-51.0) Mean Corpuscular Volume 87.4 FL 88.8 FL (80.0-100.0) (80.0-100.0) Mean Corpuscular Hemoglobin 28.4 PG 28.8 PG (27.0-34.0) (27.0-34.0) Mean Corpuscular Hemoglobin 32.5 % 32.4 % Concent (32.0-36.0) (32.0-36.0) Red Cell Distribution Width 18.6 % 18.3 % (11.6-17.2) (11.6-17.2) Platelet Count 136 TH/MM3 125 TH/MM3 (150-450) (150-450) Mean Platelet Volume 9.3 FL 9.3 FL (7.0-11.0) (7.0-11.0) Neutrophils (%) (Auto) 74.4 % 76.1 % (16.0-70.0) (16.0-70.0) Lymphocytes (%) (Auto) 14.6 % 12.4 % (9.0-44.0) (9.0-44.0) Monocytes (%) (Auto) 7.4 % (0.0-8.0) 7.7 % (0.0-8.0) Eosinophils (%) (Auto) 2.4 % (0.0-4.0) 2.7 % (0.0-4.0) Basophils (%) (Auto) 1.2 % (0.0-2.0) 1.1 % (0.0-2.0) Neutrophils # (Auto) 7.2 TH/MM3 6.0 TH/MM3 (1.8-7.7) (1.8-7.7) Lymphocytes # (Auto) 1.4 TH/MM3 1.0 TH/MM3 (1.0-4.8) (1.0-4.8) Monocytes # (Auto) 0.7 TH/MM3 0.6 TH/MM3 (0-0.9) (0-0.9) Eosinophils # (Auto) 0.2 TH/MM3 0.2 TH/MM3 (0-0.4) (0-0.4) Basophils # (Auto) 0.1 TH/MM3 0.1 TH/MM3 (0-0.2) (0-0.2) CBC Comment AUTO DIFF AUTO DIFF Differential Total Cells 100 100 Counted Neutrophils % (Manual) 73 % (16-70) 61 % (16-70) Band Neutrophils % 8 % (0-6) 6 % (0-6) Lymphocytes % 5 % (9-44) 19 % (9-44) Monocytes % 3 % (0-8) 5 % (0-8) Eosinophils % 5 % (0-4) 6 % (0-4) Basophils % 1 % (0-2) 1 % (0-2) Neutrophils # (Manual) 8.3 TH/MM3 5.5 TH/MM3 (1.8-7.7) (1.8-7.7) Metamyelocytes 3 % (0-1) 2 % (0-1) Myelocytes 2 % (0-0) Nucleated Red Blood Cells 3 /100 WBC 3 /100 WBC (0-0) (0-0) Differential Comment FINAL DIFF FINAL DIFF MANUAL MANUAL Platelet Estimate LOW (NORMAL) LOW (NORMAL) Platelet Morphology Comment NORMAL ENLARGED (NORMAL) (NORMAL) Keratocytes OCC (NORMAL) OCC (NORMAL) Sodium Level 140 MEQ/L 143 MEQ/L (136-145) (136-145) Potassium Level 3.9 MEQ/L 3.5 MEQ/L (3.5-5.1) (3.5-5.1) Chloride Level 105 MEQ/L 107 MEQ/L (98-107) (98-107) Carbon Dioxide Level 22.8 MEQ/L 24.5 MEQ/L (21.0-32.0) (21.0-32.0) Anion Gap 12 MEQ/L (5-15) 12 MEQ/L (5-15) Blood Urea Nitrogen 64 MG/DL (7-18) 62 MG/DL (7-18) Creatinine 2.08 MG/DL 2.27 MG/DL (0.60-1.30) (0.60-1.30) Estimat Glomerular Filtration 32 ML/MIN (>89) 29 ML/MIN (>89) Rate Random Glucose 260 MG/DL 341 MG/DL (74-106) (74-106) Calcium Level 7.9 MG/DL 8.1 MG/DL (8.5-10.1) (8.5-10.1) Lactate Dehydrogenase 858 U/L (87-241) Test 12/19/16 12:10 Prothrombin Time 14.7 SEC (9.8-11.6) Prothromb Time International 1.3 RATIO Ratio Activated Partial 26.8 SEC Thromboplast Time (24.3-30.1) (SUKHDEV GERARD-C) Result Diagram: 12/19/16 0535 12/19/16 0535 Microbiology Microbiology Date/Time Procedure Status Source Growth 12/16/16 19:50 Aerobic Blood Culture - Preliminary Resulted Blood Peripheral NO GROWTH IN 3 DAYS 12/16/16 19:50 Anaerobic Blood Culture - Preliminary Resulted Blood Peripheral NO GROWTH IN 3 DAYS 12/16/16 19:55 Aerobic Blood Culture - Preliminary Resulted Blood Peripheral NO GROWTH IN 3 DAYS 12/16/16 19:55 Anaerobic Blood Culture - Preliminary Resulted Blood Peripheral NO GROWTH IN 3 DAYS 12/16/16 20:00 Urine Culture - Preliminary Resulted Urine Catheterized Urine Providencia Stuartii Gram Negative Wilmer . Imaging Last Impressions Liver Biopsy CT 12/18/16 0600 Signed Impressions: Service Date/Time: Sunday, December 18, 2016 11:04 - CONCLUSION: Uncomplicated CT guided biopsy liver biopsy. Enrique Hopson MD Chest CT 12/18/16 0600 Signed Impressions: Service Date/Time: Sunday, December 18, 2016 10:56 - CONCLUSION: 1. I do not see primary or metastatic disease to the chest. 2. Bones are sclerotic. This can be seen with metastatic disease and renal osteodystrophy. Lee Self MD FACR Chest X-Ray 12/16/16 1938 Signed Impressions: Service Date/Time: Friday, December 16, 2016 19:50 - CONCLUSION: Perihilar infiltrates on both sides. Sunny Zamarripa MD Head CT 12/16/16 0000 Signed Impressions: Service Date/Time: Friday, December 16, 2016 20:37 - CONCLUSION: 1. No acute intracranial abnormality. 2. 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 There is paranasal sinusitis as well, ethmoid and left sphenoid predominant Sunny Zamarripa MD Abdomen/Pelvis CT 12/16/16 0000 Signed Impressions: Service Date/Time: Friday, December 16, 2016 20:42 - CONCLUSION: 1. Noncontrast CT concerning for hepatic metastatic disease. Also suspected metastatic disease or renal failure associated changes of the bones. 2. No obstruction or acute inflammatory changes seen of the gastrointestinal tract. I don't convincingly see a GI tract mass. 3. Stable low and intermediate attenuation masses of both kidneys. Please see above. 4. Right greater the left consolidation and pleural fluid of the visualized lung bases. Sunny Zamarripa MD . (SUKHDEV GERARDJoselyn) Assessment and Plan Disease Oriented Problem List: (1) Bilateral lower leg cellulitis (2) Bilateral lower extremity edema (3) DOLORES (acute kidney injury) (4) Diabetes type 2, uncontrolled (5) Metastatic disease (6) GI bleed (7) HTN (hypertension) (8) Mastoiditis (9) Weakness (10) UTI (urinary tract infection) (11) GERD (gastroesophageal reflux disease) (12) Anemia Symptom Scale: (1) Generalized weakness 0-10 Scale: Unable to quantify (2) Lethargy 0-10 Scale: 0 (3) Altered mental status 0-10 Scale: 0 Comment: improved (4) Abdominal pain 0-10 Scale: 5 Pertinent Non-Medical Issues Psychosocial: . 1 daughter. Spiritual: Anglican. Legal: Standard Living Will scanned into EMR completed 11/14/16, names his , Che Luna as designated health care surrogate. Ethical issues impacting care: none identified. . Important Contacts * Che Luna, / HCS: * Christy Allen, daughter: -resides in [place]. . Prognosis Mr. Munson is a 71 y/ morbid obese male with a medical history of DM type 2, HTN, chronic kidney disease, anemia, BPH and asthma with persistent GI bleed requiring transfusions and ongoing decline. Recent hospitalization for DKA, sepsis and severe anemia. Now found to have what appears to be mets disease to the liver, GI bleed refusing colonoscopy. Based on his pre-existing functional status and multiple acute/chronic comorbid illnesses, encephalopathy and infection patient is at high risk for complications, further decline and . . Code Status: No Code Plan * Standard Living Will scanned into EMR completed 11/14/16, names his , Che Luna as designated health care surrogate. * NO CODE - [place] DNR signed by patient scanned into EMR dated 11/13/16. * Spoke with patient and his . Medical update provided. He wants to await liver biopsy results before making further decisions regarding aggressive care vs considering hospice/ comfort care. Hospice consulted, they want to meet with [facility] to get more information about services as they are considering options upon discharge anticipating treatment for cancer will not be an option - not yet ready to make a final decision. Would like to meet with hospice 12/20 around 3pm when is here. * Symptoms: Weakness, multifactorial due to profound physical deconditioning and chronic comorbid illnesses. Altered mental status: possibly related to infection, general decline, malignancy? Lethargy: likely multifactorial, infection, decline and possible malignancy. * Palliative care will continue to follow-up with this patient for further clarification of goals of care. (SUKHDEV GERARD) Attestation To help prompt me to consider important information that might be impacting today's encounter and assessment, information from prior notes written by myself or my colleagues may have been "brought forward" into today's note. My signature on this note, however, is an attestation that I personally performed the exam, history, and/or decision-making noted today, and, unless otherwise indicated, the interactions with patient, family, and staff as well as the review of records all occurred today. I also attest that the listed assessment and stated plan reflect my best clinical judgment today based on the combination of historical information, prior notes, and today's exam/ interactions. When time spent is documented, it refers only to time spent today by the signer, or if indicated, combined time spent today by collaborating physician/nurse practitioner. . (SUKHDEV GERARD) Collaborating MD Comments Chart reviewed. Case discussed with palliative care GEAR CUTTER. Above GEAR CUTTER note reviewed and I concur. . (Flaquito Garnica MD) SUKHDEV GERARD Dec 19, 2016 15:45 Flaquito Garnica MD Jan 19, 2017 07:59
[2016-12-19 18:06] LABS: C. DIFF EPI 027 PRESUMPTIVE NEGATIVE (NEGATIVE); C. DIFF TOXIN PCR NEGATIVE (NEGATIVE)
[2016-12-19] MEDS: PANTOPRAZOLE SODIUM 40 MG VIAL IV PUSH SCH (20:13)
[2016-12-19] MEDS: TAMSULOSIN HCL 0.4 MG CAP PO SCH (20:13)
[2016-12-19] MEDS: SODIUM CHLOR 0.45% 1000 ML INJ 1,000 ML IV SCH (20:15)
--- NOTE | 2016-12-19 22:56 | PD.ONC.PN ---
Subjective Subjective Remarks remains weak and bedridden Objective Data Date Time Temp Pulse Resp B/P Pulse Ox O2 Delivery O2 Flow Rate FiO2 12/19/16 19:52 98.3 94 18 159/68 93 12/19/16 19:39 92 21 12/19/16 16:00 98.0 97 18 151/67 94 12/19/16 12:00 98.1 93 18 139/65 94 12/19/16 08:45 Room Air 12/19/16 08:09 100 12/19/16 08:00 97.2 97 20 141/62 95 12/19/16 05:20 Room Air 12/19/16 05:20 97.9 103 18 161/69 92 12/18/16 23:52 97.3 108 18 130/72 96 12/18/16 23:52 Room Air 12/19/16 12/19/16 12/19/16 07:00 15:00 23:00 Intake Total 946 ml 916 ml 480 ml Output Total 925 ml 600 ml 350 ml Balance 21 ml 316 ml 130 ml Result Diagram: 12/19/16 0535 12/19/16 0535 Laboratory Results Laboratory Tests Test 12/19/16 12/19/16 12/19/16 05:35 12:10 12:50 White Blood Count 7.9 TH/MM3 Red Blood Count 2.51 MIL/MM3 Hemoglobin 7.2 GM/DL Hematocrit 22.3 % Mean Corpuscular Volume 88.8 FL Mean Corpuscular Hemoglobin 28.8 PG Mean Corpuscular Hemoglobin 32.4 % Concent Red Cell Distribution Width 18.3 % Platelet Count 125 TH/MM3 Mean Platelet Volume 9.3 FL Neutrophils (%) (Auto) 76.1 % Lymphocytes (%) (Auto) 12.4 % Monocytes (%) (Auto) 7.7 % Eosinophils (%) (Auto) 2.7 % Basophils (%) (Auto) 1.1 % Neutrophils # (Auto) 6.0 TH/MM3 Lymphocytes # (Auto) 1.0 TH/MM3 Monocytes # (Auto) 0.6 TH/MM3 Eosinophils # (Auto) 0.2 TH/MM3 Basophils # (Auto) 0.1 TH/MM3 CBC Comment AUTO DIFF Differential Total Cells 100 Counted Neutrophils % (Manual) 61 % Band Neutrophils % 6 % Lymphocytes % 19 % Monocytes % 5 % Eosinophils % 6 % Basophils % 1 % Neutrophils # (Manual) 5.5 TH/MM3 Metamyelocytes 2 % Nucleated Red Blood Cells 3 /100 WBC Differential Comment FINAL DIFF MANUAL Platelet Estimate LOW Platelet Morphology Comment ENLARGED Keratocytes OCC Sodium Level 143 MEQ/L Potassium Level 3.5 MEQ/L Chloride Level 107 MEQ/L Carbon Dioxide Level 24.5 MEQ/L Anion Gap 12 MEQ/L Blood Urea Nitrogen 62 MG/DL Creatinine 2.27 MG/DL Estimat Glomerular Filtration 29 ML/MIN Rate Random Glucose 341 MG/DL Calcium Level 8.1 MG/DL Prothrombin Time 14.7 SEC Prothromb Time International 1.3 RATIO Ratio Activated Partial 26.8 SEC Thromboplast Time Stool C. difficile Toxin (PCR) NEGATIVE Stl C. difficile Toxin PRESUMPTIVE Epiderm 027 NEGATIVE Administered Medications Medications (Trade) Dose Ordered Sig/Siomara Route PRN Reason Start Time Stop Time Status Last Admin Dose Admin Bumetanide (Bumetanide) 1 mg BID PO 12/17/16 09:00 12/19/16 20:12 Tamsulosin HCl (Flomax) 0.4 mg HS PO 12/17/16 21:00 12/19/16 20:13 Vancomycin HCl (VANCOMYCIN for oral use only) 250 mg QID PO 12/17/16 09:00 12/19/16 20:13 Zinc Oxide (Zinc Oxide 20% Oint) 1 applic Q8HR TOPICAL 12/17/16 06:00 12/19/16 20:15 IV Flush (NS Flush) 2 ml BID FLUSH 12/17/16 09:00 12/19/16 20:15 Ondansetron HCl (Zofran Inj) 4 mg Q6H PRN IVP NAUSEA OR VOMITING 12/16/16 22:30 12/18/16 05:31 Pantoprazole Sodium 40 mg 40 mg Q24H IV PUSH 12/16/16 23:00 12/19/16 20:13 Sodium Chloride (1/2 NS 1000 ml Inj) 1,000 ml @ 42 mls/hr [id number] IV 12/16/16 22:45 12/19/16 20:15 Cholestyramine Resin (Questran 4 Gm Pkt) 4 gm Q8HR PO 12/18/16 14:00 12/19/16 20:15 Hydromorphone HCl (Dilaudid) 1 mg Q6H PRN PO BREAKTHROUGH PAIN 12/18/16 12:15 12/19/16 20:13 Acetaminophen/ Hydrocodone Bitart ([place] 5-325 Mg) 1 tab Q4H PRN PO PAIN SCALE 1 TO 10 12/18/16 16:30 12/19/16 22:36 Objective Remarks GENERAL: obese and bedridden. SKIN: Warm and dry. HEAD: Normocephalic. EYES: No scleral icterus. No injection or drainage. NECK: Supple, trachea midline. No JVD or lymphadenopathy. LYMPHATIC: No adenopathy. CARDIOVASCULAR: Regular rate and rhythm without murmurs. RESPIRATORY: decreased sounds at bases GASTROINTESTINAL: liver markedly enlarged EXTREMITIES: +2 edema and red. MUSCULOSKELETAL: muscle wasting NEUROLOGICAL: general weakness PSYCHIATRIC: Appropriate mood and affect; insight and judgment normal. 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 I do not know where this began but small cell cancers can come from other areas such as prostate. His liver is markedly enlarged and LDH high, all indicative of large tumor volume and not compatible with longevity. options are 1: chemotherapy with ? carbo and VP16. I doubt he will tolerate tx with poor performance status and there is no chance of cure. option 2: Hospice care and would recommend that he go to the hospice care center. I spoke with his this evening and she feels she can not care for him at home which is understandable given his size and needs. They will decide tomorrow between hospice and chemotherapy. At this point little else to add and would not pursue presently additional testing unless he desires tx at which point he would need an MRI of brain and if negative a port followed by chemotherapy. Family will meet with hospice tomorrow and I suspect they will choose hospice which is very reasonable. Yon Callejas MD Dec 19, 2016 22:56
[2016-12-20] MEDS: metroNIDAZOLE 500 MG TAB PO SCH ×2 (03:12→12:42)
[2016-12-20] MEDS: ACETAMINOPHEN/HYDROcodone 325 MG/5 MG TAB PO PRN ×3 (03:12→15:36)
[2016-12-20 04:40] VITALS: BP 185/82; PULSE 89; RESP 18; TEMP 98.4; O2SAT 96
[2016-12-20 05:21] LABS: AUTOMATED NEUTROPHIL # 7.4 TH/MM3 (1.8-7.7); BASOPHIL # 0.1 TH/MM3 (0-0.2); BASOPHIL % 1.4 % (0.0-2.0); EOSINOPHIL # 0.3 TH/MM3 (0-0.4); EOSINOPHIL % 3.1 % (0.0-4.0); HEMATOCRIT 23.4 % (39.0-51.0); LYMPH % 10.9 % (9.0-44.0); MEAN CELL VOLUME 86.7 FL (80.0-100.0); MEAN CORPUSCULAR HEMOGLOBIN 28.7 PG (27.0-34.0); MEAN CORPUSCULAR HGB CONC 33.1 % (32.0-36.0); MONO % 6.4 % (0.0-8.0); NEUT % 78.2 % (16.0-70.0); PLATELET COUNT 132 TH/MM3 (150-450); RED CELL DISTRIBUTION WIDTH 18.6 % (11.6-17.2); WHITE BLOOD COUNT 9.4 TH/MM3 (4.0-11.0)
[2016-12-20 05:25] LABS: BICARBONATE 24.1 MEQ/L (21.0-32.0); POTASSIUM 3.2 MEQ/L (3.5-5.1)
[2016-12-20 05:28] LABS: HEMO FLAGS AUTO DIFF
[2016-12-20] MEDS: HYDROmorphone HCL 2 MG TAB PO PRN ×3 (05:29→18:01)
[2016-12-20] MEDS: CHOLESTYRAMINE 4 GM PACKET PO SCH ×2 (05:29→12:42)
[2016-12-20] MEDS: ZINC OXIDE 20% OINT 30 GM TUBE TOPICAL SCH ×2 (05:29→12:42)
[2016-12-20] MEDS: INSULIN ASPART SUPPLEMENTAL SCALE SQ SCH ×3 (05:32→18:01)
[2016-12-20] MEDS: RESP: ALBUTEROL 2.5 MG/IPRATROPIUM 0.5 MG NEB (SCH) NEB ×4 (07:27→19:56)
[2016-12-20 08:00] VITALS: BP 176/76; PULSE 92; RESP 22; TEMP 98.2; O2SAT 92
[2016-12-20 08:16] LABS: BANDS 28 % (0-6); CORRECTED NUCLEATED RBC 1 /100 WBC (0-0); EOSINOPHILS 6 % (0-4); METAMYELOCYTES 5 % (0-1); MYELOCYTES 2 % (0-0); NEUTROPHIL # MANUAL DIFF 7.5 TH/MM3 (1.8-7.7); PLATELET ESTIMATE SMEAR LOW (NORMAL); PLATELET MORPHOLOGY NORMAL (NORMAL); POLYS (SEG NEUTROPHILS) 45 % (16-70); SCAN/DIFF FINAL DIFF MANUAL; WBC DIFF SAMPLE 100
[2016-12-20] MEDS: VANCOMYCIN 500 MG VIAL (FOR ORAL USE ONLY) PO SCH ×3 (08:49→18:00)
[2016-12-20] MEDS: SODIUM CHLORIDE 0.9% FLUSH 5 ML FLUSH FLUSH SCH (08:49)
[2016-12-20] MEDS: BUMETANIDE 1 MG TAB PO SCH (08:49)
[2016-12-20 09:00] VITALS: PULSE 95
--- NOTE | 2016-12-20 09:31 | HHI.FPPN ---
Subjective Remarks C/O ABDOM PAIN C/O WEAKNESS C/O LEG EDEMA WITH PAIN D/W RN Objective Vitals Vital Signs Date Time Temp Pulse Resp B/P Pulse Ox O2 Delivery O2 Flow Rate FiO2 12/20/16 04:40 98.4 89 18 185/82 96 12/19/16 23:32 98.5 91 18 122/56 94 12/19/16 23:32 Room Air 12/19/16 20:00 86 12/19/16 19:52 98.3 94 18 159/68 93 12/19/16 19:52 Room Air 12/19/16 19:39 92 21 12/19/16 16:00 98.0 97 18 151/67 94 12/19/16 12:00 98.1 93 18 139/65 94 I/O 12/19/16 12/19/16 12/19/16 12/20/16 12/20/16 12/20/16 07:00 15:00 23:00 07:00 15:00 23:00 Intake Total 946 ml 916 ml 902 ml 480 ml Output Total 925 ml 600 ml 350 ml 700 ml Balance 21 ml 316 ml 552 ml -220 ml Intake Oral 360 ml 480 ml 480 ml 480 ml IV Total 586 ml 436 ml 422 ml Output Urine Total 925 ml 600 ml 350 ml 700 ml # Bowel Movements 0 2 1 2 Result Diagram: 12/20/1644512/20/16445 Objective Remarks GENERAL: SKIN: Warm and dry. Stasis changes and cellulitis of BLE's HEAD: Atraumatic. Normocephalic. EYES: Pupils equal and round. No scleral icterus. No injection or drainage. ENT: No nasal bleeding or discharge. Mucous membranes pink and moist. NECK: Trachea midline. No JVD. CARDIOVASCULAR: Regular rate and rhythm. RESPIRATORY: No accessory muscle use. Clear to auscultation. Breath sounds equal bilaterally. GASTROINTESTINAL: Abdomen soft, non-tender, nondistended. Hepatic and splenic margins not palpable. MUSCULOSKELETAL: two plus edema BLE's NEUROLOGICAL: Awake and alert. No obvious cranial nerve deficits. Motor grossly within normal limits. 1 out of 5 muscle strength in the arms and legs. Normal speech. PSYCHIATRIC: Appropriate mood and affect; insight and judgment normal. Medications and IVs Current Medications Medications (Trade) Dose Ordered Sig/Siomara Route Start Time Stop Time Status Last Admin (Bumetanide) 1 mg BID PO 12/17/16 09:00 12/20/16 08:49 (Flomax) 0.4 mg HS PO 12/17/16 21:00 12/19/16 20:13 (VANCOMYCIN for oral use only) 250 mg QID PO 12/17/16 09:00 12/20/16 08:49 (Zinc Oxide 20% Oint) 1 applic Q8HR TOPICAL 12/17/16 06:00 12/20/16 05:29 (NS Flush) 2 ml UNSCH PRN FLUSH 12/16/16 22:30 (NS Flush) 2 ml BID FLUSH 12/17/16 09:00 12/20/16 08:49 (Tylenol) 650 mg Q4H PRN PO 12/16/16 22:30 (Zofran Inj) 4 mg Q6H PRN IVP 12/16/16 22:30 12/18/16 05:31 (Milk Of Magnesia Liq) 30 ml Q12H PRN PO 12/16/16 22:30 (Senokot) 17.2 mg Q12H PRN PO 12/16/16 22:30 (Ambien) 5 mg HS PRN PO 12/16/16 22:30 (Narcan Inj) 0.4 mg UNSCH PRN IV 12/16/16 22:30 (Catapres) 0.1 mg Q6H PRN PO 12/16/16 22:30 12/20/16 05:29 Pantoprazole Sodium 40 mg 40 mg Q24H IV PUSH 12/16/16 23:00 12/19/16 20:13 (1/2 NS 1000 ml Inj) 1,000 ml @ 42 mls/hr [id number] IV 12/16/16 22:45 12/19/16 20:15 (D50w (Vial) Inj) 25 ml UNSCH PRN IV PUSH 12/17/16 09:00 (Glucagon Inj) 1 mg UNSCH PRN OTHER 12/17/16 09:00 (Questran 4 Gm Pkt) 4 gm Q8HR PO 12/18/16 14:00 12/20/16 05:29 (Dilaudid) 1 mg Q6H PRN PO 12/18/16 12:15 12/20/16 05:29 ([place] 5-325 Mg) 1 tab Q4H PRN PO 12/18/16 16:30 12/20/16 08:49 (Flagyl) 500 mg Q8H PO 12/20/16 04:00 12/20/16 03:12 Urinary Catheter: Yes Carmen insert reason: End of Life A/P Assessment and Plan AMS FTT SMALL CELL LIVER METS s/p LIVER BX DEC 18. ?RENAL METS GIB BLOOD LOSS ANEMIA. TRANSFUSED PRBC'S C DIF ASYMP BACTERIURIA CHRONIC CARMEN HCAP DM BLE CELLULITIS PLAN: OFF IV ABX PO FLAGYL AND VANCO IVF BLOOD CULTURES UA C/S PROTONIX IV INSULIN PALLIATIVE CONSULT ONCOLOGY CONSULT GI CONSULT ID CONSULT FOR C DIF, UTI, PNA AM LABS SEE MY ORDERS PLEASE. Yon Stallings MD Dec 20, 2016 09:31
--- NOTE | 2016-12-20 09:46 | PD.ONC.PN ---
Subjective Subjective Remarks patient very philosophical today and leaning towards hospice and not taking chemotherapy Objective Data Date Time Temp Pulse Resp B/P Pulse Ox O2 Delivery O2 Flow Rate FiO2 12/20/16 04:40 98.4 89 18 185/82 96 12/19/16 23:32 98.5 91 18 122/56 94 12/19/16 23:32 Room Air 12/19/16 20:00 86 12/19/16 19:52 98.3 94 18 159/68 93 12/19/16 19:52 Room Air 12/19/16 19:39 92 21 12/19/16 16:00 98.0 97 18 151/67 94 12/19/16 12:00 98.1 93 18 139/65 94 Result Diagram: 12/20/16 0446 12/20/16 0446 Laboratory Results Laboratory Tests Test 12/19/16 12/19/16 12/20/16 12:10 12:50 04:46 Prothrombin Time 14.7 SEC Prothromb Time International 1.3 RATIO Ratio Activated Partial 26.8 SEC Thromboplast Time Stool C. difficile Toxin (PCR) NEGATIVE Stl C. difficile Toxin PRESUMPTIVE Epiderm 027 NEGATIVE White Blood Count 9.4 TH/MM3 Red Blood Count 2.70 MIL/MM3 Hemoglobin 7.7 GM/DL Hematocrit 23.4 % Mean Corpuscular Volume 86.7 FL Mean Corpuscular Hemoglobin 28.7 PG Mean Corpuscular Hemoglobin 33.1 % Concent Red Cell Distribution Width 18.6 % Platelet Count 132 TH/MM3 Mean Platelet Volume 8.7 FL Neutrophils (%) (Auto) 78.2 % Lymphocytes (%) (Auto) 10.9 % Monocytes (%) (Auto) 6.4 % Eosinophils (%) (Auto) 3.1 % Basophils (%) (Auto) 1.4 % Neutrophils # (Auto) 7.4 TH/MM3 Lymphocytes # (Auto) 1.0 TH/MM3 Monocytes # (Auto) 0.6 TH/MM3 Eosinophils # (Auto) 0.3 TH/MM3 Basophils # (Auto) 0.1 TH/MM3 CBC Comment AUTO DIFF Differential Total Cells 100 Counted Neutrophils % (Manual) 45 % Band Neutrophils % 28 % Lymphocytes % 8 % Monocytes % 6 % Eosinophils % 6 % Neutrophils # (Manual) 7.5 TH/MM3 Metamyelocytes 5 % Myelocytes 2 % Nucleated Red Blood Cells 1 /100 WBC Differential Comment FINAL DIFF MANUAL Platelet Estimate LOW Platelet Morphology Comment NORMAL Sodium Level 142 MEQ/L Potassium Level 3.2 MEQ/L Chloride Level 107 MEQ/L Carbon Dioxide Level 24.1 MEQ/L Anion Gap 11 MEQ/L Blood Urea Nitrogen 51 MG/DL Creatinine 2.19 MG/DL Estimat Glomerular Filtration 30 ML/MIN Rate Random Glucose 232 MG/DL Calcium Level 8.2 MG/DL Administered Medications Medications (Trade) Dose Ordered Sig/Siomara Route PRN Reason Start Time Stop Time Status Last Admin Dose Admin Bumetanide (Bumetanide) 1 mg BID PO 12/17/16 09:00 12/20/16 08:49 Tamsulosin HCl (Flomax) 0.4 mg HS PO 12/17/16 21:00 12/19/16 20:13 Vancomycin HCl (VANCOMYCIN for oral use only) 250 mg QID PO 12/17/16 09:00 12/20/16 08:49 Zinc Oxide (Zinc Oxide 20% Oint) 1 applic Q8HR TOPICAL 12/17/16 06:00 12/20/16 05:29 IV Flush (NS Flush) 2 ml BID FLUSH 12/17/16 09:00 12/20/16 08:49 Ondansetron HCl (Zofran Inj) 4 mg Q6H PRN IVP NAUSEA OR VOMITING 12/16/16 22:30 12/18/16 05:31 Clonidine (Catapres) 0.1 mg Q6H PRN PO SBP>160, DBP>90 12/16/16 22:30 12/20/16 05:29 Pantoprazole Sodium 40 mg 40 mg Q24H IV PUSH 12/16/16 23:00 12/19/16 20:13 Sodium Chloride (1/2 NS 1000 ml Inj) 1,000 ml @ 42 mls/hr [id number] IV 12/16/16 22:45 12/19/16 20:15 Cholestyramine Resin (Questran 4 Gm Pkt) 4 gm Q8HR PO 12/18/16 14:00 12/20/16 05:29 Hydromorphone HCl (Dilaudid) 1 mg Q6H PRN PO BREAKTHROUGH PAIN 12/18/16 12:15 12/20/16 05:29 Acetaminophen/ Hydrocodone Bitart ([place] 5-325 Mg) 1 tab Q4H PRN PO PAIN SCALE 1 TO 10 12/18/16 16:30 12/20/16 08:49 Metronidazole (Flagyl) 500 mg Q8H PO 12/20/16 04:00 12/20/16 03:12 Objective Remarks Objective Remarks GENERAL: obese and bedridden. SKIN: Warm and dry. HEAD: Normocephalic. EYES: No scleral icterus. No injection or drainage. NECK: Supple, trachea midline. No JVD or lymphadenopathy. LYMPHATIC: No adenopathy. CARDIOVASCULAR: Regular rate and rhythm without murmurs. RESPIRATORY: decreased sounds at bases GASTROINTESTINAL: liver markedly enlarged EXTREMITIES: +2 edema and red. MUSCULOSKELETAL: muscle wasting NEUROLOGICAL: general weakness PSYCHIATRIC: Appropriate mood and affect; insight and judgment normal. 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 I do not know where this began but small cell cancers can come from other areas such as prostate. His liver is markedly enlarged and LDH high, all indicative of large tumor volume and not compatible with longevity. options are 1: chemotherapy with ? carbo and VP16. I doubt he will tolerate tx with poor performance status and there is no chance of cure. option 2: Hospice care and would recommend that he go to the hospice care center. I spoke with his this evening and she feels she can not care for him at home which is understandable given his size and needs. They will decide tomorrow between hospice and chemotherapy. 2: patient has decided he would like hospice and not receive chemotherapy. He is worried about his and they both feel he can not return home. Hopefully care center will be an option. He is accepting of situation and is as concerned about his as himself. nothing further to add and will be available as needed Yon Callejas MD Dec 20, 2016 09:46
[2016-12-20 12:00] VITALS: BP 178/82; PULSE 98; RESP 22; TEMP 98.1; O2SAT 97
--- NOTE | 2016-12-20 14:26 | HHI.IDPN ---
Subjective Subjective Remarks is a 71 y/o CM with PMHx of DM type 2, hypertension, morbid obesity , chronic kidney disease, anemia, BPH and asthma. ID following for Cdiff. Overnight events reviewed No fevers No rash No SOB or chest pain or cough. appears comfortable. Stool more formed and less freq. Abdominal pain reduced. Overall feels little better today. Oncology has d/w patient: he does not wish to pursue with chemotherapy or any oncology interventions but will d.w and provide final decisions. Antibiotics Last Impressions Liver Biopsy CT 12/18/16 0600 Signed Impressions: Service Date/Time: Sunday, December 18, 2016 11:04 - CONCLUSION: Uncomplicated CT guided biopsy liver biopsy. Enrique Hopson MD Chest CT 12/18/16 0600 Signed Impressions: Service Date/Time: Sunday, December 18, 2016 10:56 - CONCLUSION: 1. I do not see primary or metastatic disease to the chest. 2. Bones are sclerotic. This can be seen with metastatic disease and renal osteodystrophy. Lee Self MD FACR Chest X-Ray 12/16/16 1938 Signed Impressions: Service Date/Time: Friday, December 16, 2016 19:50 - CONCLUSION: Perihilar infiltrates on both sides. Sunny Zamarripa MD Head CT 12/16/16 0000 Signed Impressions: Service Date/Time: Friday, December 16, 2016 20:37 - CONCLUSION: 1. No acute intracranial abnormality. 2. 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 There is paranasal sinusitis as well, ethmoid and left sphenoid predominant Sunny Zamarripa MD Abdomen/Pelvis CT 12/16/16 0000 Signed Impressions: Service Date/Time: Friday, December 16, 2016 20:42 - CONCLUSION: 1. Noncontrast CT concerning for hepatic metastatic disease. Also suspected metastatic disease or renal failure associated changes of the bones. 2. No obstruction or acute inflammatory changes seen of the gastrointestinal tract. I don't convincingly see a GI tract mass. 3. Stable low and intermediate attenuation masses of both kidneys. Please see above. 4. Right greater the left consolidation and pleural fluid of the visualized lung bases. Sunny Zamarripa MD Lines Line sites with no e.o infection Past Medical History reviewed. Allergies: Coded Allergies: Azithromycin (Verified Allergy, Severe, Rash/hives, 12/16/16) Toradol (Verified Allergy, Severe, Hives, 12/16/16) Tramadol (Verified Allergy, Intermediate, RASH/HIVES, 12/16/16) Cipro (Verified Allergy, Unknown, 12/16/16) Ativan (Verified Adverse Reaction, Severe, Agitation, combative, 12/16/16) Flu Vaccine (Verified Adverse Reaction, Severe, Chest pain, 12/16/16) Objective . Vital Signs Date Time Temp Pulse Resp B/P Pulse Ox O2 Delivery O2 Flow Rate FiO2 12/20/16 12:00 98.1 98 22 178/82 97 12/20/16 08:00 98.2 92 22 176/76 92 12/20/16 08:00 Room Air 2.00 12/20/16 04:40 98.4 89 18 185/82 96 12/19/16 23:32 98.5 91 18 122/56 94 12/19/16 23:32 Room Air 12/19/16 20:00 86 12/19/16 19:52 98.3 94 18 159/68 93 12/19/16 19:52 Room Air 12/19/16 19:39 92 21 12/19/16 16:00 98.0 97 18 151/67 94 12/19/16 12/19/16 12/20/16 15:00 23:00 07:00 Intake Total 916 ml 902 ml 480 ml Output Total 600 ml 350 ml 700 ml Balance 316 ml 552 ml -220 ml Intake Oral 480 ml 480 ml 480 ml IV Total 436 ml 422 ml Output Urine Total 600 ml 350 ml 700 ml # Bowel Movements 2 1 2 . Laboratory Tests Test 12/19/16 12/20/16 05:35 04:46 White Blood Count 7.9 TH/MM3 9.4 TH/MM3 Red Blood Count 2.51 MIL/MM3 2.70 MIL/MM3 Hemoglobin 7.2 GM/DL 7.7 GM/DL Hematocrit 22.3 % 23.4 % Mean Corpuscular Volume 88.8 FL 86.7 FL Mean Corpuscular Hemoglobin 28.8 PG 28.7 PG Mean Corpuscular Hemoglobin 32.4 % 33.1 % Concent Red Cell Distribution Width 18.3 % 18.6 % Platelet Count 125 TH/MM3 132 TH/MM3 Mean Platelet Volume 9.3 FL 8.7 FL Neutrophils (%) (Auto) 76.1 % 78.2 % Lymphocytes (%) (Auto) 12.4 % 10.9 % Monocytes (%) (Auto) 7.7 % 6.4 % Eosinophils (%) (Auto) 2.7 % 3.1 % Basophils (%) (Auto) 1.1 % 1.4 % Neutrophils # (Auto) 6.0 TH/MM3 7.4 TH/MM3 Lymphocytes # (Auto) 1.0 TH/MM3 1.0 TH/MM3 Monocytes # (Auto) 0.6 TH/MM3 0.6 TH/MM3 Eosinophils # (Auto) 0.2 TH/MM3 0.3 TH/MM3 Basophils # (Auto) 0.1 TH/MM3 0.1 TH/MM3 CBC Comment AUTO DIFF AUTO DIFF Differential Total Cells 100 100 Counted Neutrophils % (Manual) 61 % 45 % Band Neutrophils % 6 % 28 % Lymphocytes % 19 % 8 % Monocytes % 5 % 6 % Eosinophils % 6 % 6 % Basophils % 1 % Neutrophils # (Manual) 5.5 TH/MM3 7.5 TH/MM3 Metamyelocytes 2 % 5 % Nucleated Red Blood Cells 3 /100 WBC 1 /100 WBC Differential Comment FINAL DIFF FINAL DIFF MANUAL MANUAL Platelet Estimate LOW LOW Platelet Morphology Comment ENLARGED NORMAL Keratocytes OCC Myelocytes 2 % Laboratory Tests Test 12/19/16 12/20/16 05:35 04:46 Sodium Level 143 MEQ/L 142 MEQ/L Potassium Level 3.5 MEQ/L 3.2 MEQ/L Chloride Level 107 MEQ/L 107 MEQ/L Carbon Dioxide Level 24.5 MEQ/L 24.1 MEQ/L Anion Gap 12 MEQ/L 11 MEQ/L Blood Urea Nitrogen 62 MG/DL 51 MG/DL Creatinine 2.27 MG/DL 2.19 MG/DL Estimat Glomerular Filtration 29 ML/MIN 30 ML/MIN Rate Random Glucose 341 MG/DL 232 MG/DL Calcium Level 8.1 MG/DL 8.2 MG/DL Imaging Last Impressions Liver Biopsy CT 12/18/16 0600 Signed Impressions: Service Date/Time: Sunday, December 18, 2016 11:04 - CONCLUSION: Uncomplicated CT guided biopsy liver biopsy. Enrique Hopson MD Chest CT 12/18/16 0600 Signed Impressions: Service Date/Time: Sunday, December 18, 2016 10:56 - CONCLUSION: 1. I do not see primary or metastatic disease to the chest. 2. Bones are sclerotic. This can be seen with metastatic disease and renal osteodystrophy. Lee Self MD FACR Chest X-Ray 12/16/161937 Signed Impressions: Service Date/Time: Friday, December 16, 2016 19:50 - CONCLUSION: Perihilar infiltrates on both sides. Sunny Zamarripa MD Head CT 12/16/16 0000 Signed Impressions: Service Date/Time: Friday, December 16, 2016 20:37 - CONCLUSION: 1. No acute intracranial abnormality. 2. 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 There is paranasal sinusitis as well, ethmoid and left sphenoid predominant Sunny Zamarripa MD Abdomen/Pelvis CT 12/16/16 0000 Signed Impressions: Service Date/Time: Friday, December 16, 2016 20:42 - CONCLUSION: 1. Noncontrast CT concerning for hepatic metastatic disease. Also suspected metastatic disease or renal failure associated changes of the bones. 2. No obstruction or acute inflammatory changes seen of the gastrointestinal tract. I don't convincingly see a GI tract mass. 3. Stable low and intermediate attenuation masses of both kidneys. Please see above. 4. Right greater the left consolidation and pleural fluid of the visualized lung bases. Sunny Zamarripa MD Physical Exam GENERAL: This is a well-nourished, well-developed patient, in no apparent distress. SKIN: No rashes. Cool and dry. HEAD: Atraumatic. Normocephalic. No temporal or scalp tenderness. EYES: Pupils equal round and reactive. Extraocular motions intact. No scleral icterus. No injection or drainage. ENT: Nose without bleeding, purulent drainage or septal hematoma. Throat without erythema, tonsillar hypertrophy or exudate. Uvula midline. Airway patent. NECK: Trachea midline. Supple, nontender, no meningeal signs. CARDIOVASCULAR: HS audible RESPIRATORY: Clear to auscultation. Breath sounds equal bilaterally. No wheezes , rales, or rhonchi. GASTROINTESTINAL: Abdomen soft, non-tender, nondistended. Obese MUSCULOSKELETAL: Extremities without clubbing, cyanosis, or edema. No joint tenderness, effusion, or edema noted. No calf tenderness. Negative Homans sign bilaterally. NEUROLOGICAL: Awake and alert. Grossly non focal Psych: cooperative IV line sites with no e/o infection. Assessment & Plan Remarks PNA: atypical vs CAP vs aspiration given AMS prior to admission Gram negative UTI: catheter present on admission. Bilateral LE cellulitis with scabs. Cdiff positive was being treated at [facility]F on admission. Liver biopsy: small cell carcinoma Recs: Observe off of all IV antibiotics. No urinary symptoms. More than one organism ? contaminant. Given diarrhea and cdiff: recommend only treating with Vanco oral and flagyl oral. Bilateral LE cellulitis: leg elevation, fluid restriction. Appreciate palliative care help. Pathology results to be d/w family to help address goals of care. Will sign off please call back if any change in clinical condition or questions. When ready for DC recommend a total of 14 days of vanco oral inclusive of in patient days. Ok to give flagyl for few more days while in hospital Should pt chose hospice he can be given same oral regimen for comfort to prevent abdominal pain and diarrhea shouls patient chose to do that. d/w RN and pt. Tana Law MD Dec 20, 2016 14:26
[2016-12-20 16:00] VITALS: BP 142/77; PULSE 91; RESP 22; TEMP 97.8; O2SAT 95
--- NOTE | 2016-12-20 16:26 | HHI.HCPN ---
Reason for visit a. To assist with evaluation and management of symptoms including: pain, weakness. b. To assist medical decision maker(s) with: better understanding of current medical conditions; weighing benefits/burdens of medical treatment options; making medical treatment decisions. . (SUKHDEV GERARD) Subjective/Interval History Patient was seen and examined. at beside. Discussed with hospice nurse, Zeenat. He is awake and alert. 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 He does not want chemotherapy. He was comfort focused care with hospice support. He does not want to suffer at end of life. He is frustrated having to wait for pain medication. He wants to go to hospice care center. He reports continued abdominal pain. PRN Hydrocodone 5mg x 5 doses and PRN Dilaudid 1mg PO x 3 doses in the past 24 hours. Vital signs stable. Hemoglobin 7.7. Creatinine increasing 2.19. Reviewed medication with hospice nurse, recommend starting low dose Methadone upon transfer and continuation of PRN Dilaudid for BTP. . Family/friend interactions See interval note. . (SUKHDEV GERARD) Advance Directives Living Will: Copy in medical record Health Care Surrogate: Copy in medical record (SUKHDEV GERARD) Advance Directive Specifics Health Care Surrogate(s): Standard Living Will scanned into EMR completed 11/14/16, names his , Che Luna as designated health care surrogate. . Significant change in goals: NO CODE. Desires comfort focused care with hospice support and transfer to hospice care center when arrangements complete. . (SUKHDEV GERARD) Objective Vital Signs Date Time Temp Pulse Resp B/P Pulse Ox O2 Delivery O2 Flow Rate FiO2 12/20/16 12:00 98.1 98 22 178/82 97 12/20/16 08:00 98.2 92 22 176/76 92 12/20/16 08:00 Room Air 2.00 12/20/16 04:40 98.4 89 18 185/82 96 12/19/16 23:32 98.5 91 18 122/56 94 12/19/16 23:32 Room Air 12/19/16 20:00 86 12/19/16 19:52 98.3 94 18 159/68 93 12/19/16 19:52 Room Air 12/19/16 19:39 92 21 Physical Exam CONSTITUTIONAL/GENERAL: This is obese, critically ill patient, lethargic. TUBES/LINES/DRAINS: PIV right, George. SKIN: No jaundice, rashes, or lesions. Ecchymoses on upper extremities. No wounds seen anteriorly. Skin temperature appropriate. Not diaphoretic. ENT: Hearing adequate. Nose without bleeding or purulent drainage. Mouth closed , drooling. CARDIOVASCULAR: Regular rate and rhythm without murmurs, gallops, or rubs. No JVD. Bilateral UE and LE edema. RESPIRATORY/CHEST: Symmetric, unlabored respirations. Clear to auscultation. Breath sounds equal bilaterally. No wheezes, rales, or rhonchi. GASTROINTESTINAL: Protuberant. Abdomen soft, non-tender, nondistended. No guarding. Bowel sounds present. GENITOURINARY: Without palpable bladder distension. George catheter in place. MUSCULOSKELETAL: Extremities without clubbing, cyanosis, or edema. No joint tenderness or effusion noted. No calf tenderness. No mottling or clubbing. NEUROLOGICAL: Awake and alert, answers questions appropriately. Moves all extremities. PSYCHIATRIC: Awake and alert. . (SUKHDEV GERARD TRAY DELIVERY AIDE-Joselyn) Diagnostic Tests Laboratory Laboratory Tests Test 12/18/16 12/19/16 12/19/16 12/19/16 08:25 05:35 12:10 12:50 White Blood Count 9.6 TH/MM3 7.9 TH/MM3 (4.0-11.0) (4.0-11.0) Red Blood Count 2.83 MIL/MM3 2.51 MIL/MM3 (4.50-5.90) (4.50-5.90) Hemoglobin 8.0 GM/DL 7.2 GM/DL (13.0-17.0) (13.0-17.0) Hematocrit 24.7 % 22.3 % (39.0-51.0) (39.0-51.0) Mean Corpuscular Volume 87.4 FL 88.8 FL (80.0-100.0) (80.0-100.0) Mean Corpuscular Hemoglobin 28.4 PG 28.8 PG (27.0-34.0) (27.0-34.0) Mean Corpuscular Hemoglobin 32.5 % 32.4 % Concent (32.0-36.0) (32.0-36.0) Red Cell Distribution Width 18.6 % 18.3 % (11.6-17.2) (11.6-17.2) Platelet Count 136 TH/MM3 125 TH/MM3 (150-450) (150-450) Mean Platelet Volume 9.3 FL 9.3 FL (7.0-11.0) (7.0-11.0) Neutrophils (%) (Auto) 74.4 % 76.1 % (16.0-70.0) (16.0-70.0) Lymphocytes (%) (Auto) 14.6 % 12.4 % (9.0-44.0) (9.0-44.0) Monocytes (%) (Auto) 7.4 % (0.0-8.0) 7.7 % (0.0-8.0) Eosinophils (%) (Auto) 2.4 % (0.0-4.0) 2.7 % (0.0-4.0) Basophils (%) (Auto) 1.2 % (0.0-2.0) 1.1 % (0.0-2.0) Neutrophils # (Auto) 7.2 TH/MM3 6.0 TH/MM3 (1.8-7.7) (1.8-7.7) Lymphocytes # (Auto) 1.4 TH/MM3 1.0 TH/MM3 (1.0-4.8) (1.0-4.8) Monocytes # (Auto) 0.7 TH/MM3 0.6 TH/MM3 (0-0.9) (0-0.9) Eosinophils # (Auto) 0.2 TH/MM3 0.2 TH/MM3 (0-0.4) (0-0.4) Basophils # (Auto) 0.1 TH/MM3 0.1 TH/MM3 (0-0.2) (0-0.2) CBC Comment AUTO DIFF AUTO DIFF Differential Total Cells 100 100 Counted Neutrophils % (Manual) 73 % (16-70) 61 % (16-70) Band Neutrophils % 8 % (0-6) 6 % (0-6) Lymphocytes % 5 % (9-44) 19 % (9-44) Monocytes % 3 % (0-8) 5 % (0-8) Eosinophils % 5 % (0-4) 6 % (0-4) Basophils % 1 % (0-2) 1 % (0-2) Neutrophils # (Manual) 8.3 TH/MM3 5.5 TH/MM3 (1.8-7.7) (1.8-7.7) Metamyelocytes 3 % (0-1) 2 % (0-1) Myelocytes 2 % (0-0) Nucleated Red Blood Cells 3 /100 WBC 3 /100 WBC (0-0) (0-0) Differential Comment FINAL DIFF FINAL DIFF MANUAL MANUAL Platelet Estimate LOW (NORMAL) LOW (NORMAL) Platelet Morphology Comment NORMAL ENLARGED (NORMAL) (NORMAL) Keratocytes OCC (NORMAL) OCC (NORMAL) Sodium Level 140 MEQ/L 143 MEQ/L (136-145) (136-145) Potassium Level 3.9 MEQ/L 3.5 MEQ/L (3.5-5.1) (3.5-5.1) Chloride Level 105 MEQ/L 107 MEQ/L (98-107) (98-107) Carbon Dioxide Level 22.8 MEQ/L 24.5 MEQ/L (21.0-32.0) (21.0-32.0) Anion Gap 12 MEQ/L (5-15) 12 MEQ/L (5-15) Blood Urea Nitrogen 64 MG/DL (7-18) 62 MG/DL (7-18) Creatinine 2.08 MG/DL 2.27 MG/DL (0.60-1.30) (0.60-1.30) Estimat Glomerular Filtration 32 ML/MIN (>89) 29 ML/MIN (>89) Rate Random Glucose 260 MG/DL 341 MG/DL (74-106) (74-106) Calcium Level 7.9 MG/DL 8.1 MG/DL (8.5-10.1) (8.5-10.1) Ammonia 33 MCMOL/L (11-32) Lactate Dehydrogenase 858 U/L (87-241) Prothrombin Time 14.7 SEC (9.8-11.6) Prothromb Time International 1.3 RATIO Ratio Activated Partial 26.8 SEC Thromboplast Time (24.3-30.1) Stool C. difficile Toxin (PCR) NEGATIVE (NEGATIVE) Stl C. difficile Toxin PRESUMPTIVE Epiderm 027 NEGATIVE (NEGATIVE) Test 12/20/16 04:46 White Blood Count 9.4 TH/MM3 (4.0-11.0) Red Blood Count 2.70 MIL/MM3 (4.50-5.90) Hemoglobin 7.7 GM/DL (13.0-17.0) Hematocrit 23.4 % (39.0-51.0) Mean Corpuscular Volume 86.7 FL (80.0-100.0) Mean Corpuscular Hemoglobin 28.7 PG (27.0-34.0) Mean Corpuscular Hemoglobin 33.1 % Concent (32.0-36.0) Red Cell Distribution Width 18.6 % (11.6-17.2) Platelet Count 132 TH/MM3 (150-450) Mean Platelet Volume 8.7 FL (7.0-11.0) Neutrophils (%) (Auto) 78.2 % (16.0-70.0) Lymphocytes (%) (Auto) 10.9 % (9.0-44.0) Monocytes (%) (Auto) 6.4 % (0.0-8.0) Eosinophils (%) (Auto) 3.1 % (0.0-4.0) Basophils (%) (Auto) 1.4 % (0.0-2.0) Neutrophils # (Auto) 7.4 TH/MM3 (1.8-7.7) Lymphocytes # (Auto) 1.0 TH/MM3 (1.0-4.8) Monocytes # (Auto) 0.6 TH/MM3 (0-0.9) Eosinophils # (Auto) 0.3 TH/MM3 (0-0.4) Basophils # (Auto) 0.1 TH/MM3 (0-0.2) CBC Comment AUTO DIFF Differential Total Cells 100 Counted Neutrophils % (Manual) 45 % (16-70) Band Neutrophils % 28 % (0-6) Lymphocytes % 8 % (9-44) Monocytes % 6 % (0-8) Eosinophils % 6 % (0-4) Neutrophils # (Manual) 7.5 TH/MM3 (1.8-7.7) Metamyelocytes 5 % (0-1) Myelocytes 2 % (0-0) Nucleated Red Blood Cells 1 /100 WBC (0-0) Differential Comment FINAL DIFF MANUAL Platelet Estimate LOW (NORMAL) Platelet Morphology Comment NORMAL (NORMAL) Sodium Level 142 MEQ/L (136-145) Potassium Level 3.2 MEQ/L (3.5-5.1) Chloride Level 107 MEQ/L (98-107) Carbon Dioxide Level 24.1 MEQ/L (21.0-32.0) Anion Gap 11 MEQ/L (5-15) Blood Urea Nitrogen 51 MG/DL (7-18) Creatinine 2.19 MG/DL (0.60-1.30) Estimat Glomerular Filtration 30 ML/MIN (>89) Rate Random Glucose 232 MG/DL (74-106) Calcium Level 8.2 MG/DL (8.5-10.1) (SUKHDEV GERARD) Result Diagram: 12/20/166 12/20/16445 Microbiology Microbiology Date/Time Procedure Status Source Growth 12/16/16 20:00 Urine Culture - Final Complete Urine Catheterized Urine Providencia Stuartii Klebsiella Pneumoniae 12/16/16 19:55 Aerobic Blood Culture - Preliminary Resulted Blood Peripheral NO GROWTH IN 4 DAYS 12/16/16 19:55 Anaerobic Blood Culture - Preliminary Resulted Blood Peripheral NO GROWTH IN 4 DAYS . Imaging Last Impressions Liver Biopsy CT 12/18/16 0600 Signed Impressions: Service Date/Time: Sunday, December 18, 2016 11:04 - CONCLUSION: Uncomplicated CT guided biopsy liver biopsy. Enrique Hopson MD Chest CT 12/18/16 0600 Signed Impressions: Service Date/Time: Sunday, December 18, 2016 10:56 - CONCLUSION: 1. I do not see primary or metastatic disease to the chest. 2. Bones are sclerotic. This can be seen with metastatic disease and renal osteodystrophy. Lee Self MD FACR Chest X-Ray 12/16/16 1938 Signed Impressions: Service Date/Time: Friday, December 16, 2016 19:50 - CONCLUSION: Perihilar infiltrates on both sides. Sunny Zamarripa MD Head CT 12/16/16 0000 Signed Impressions: Service Date/Time: Friday, December 16, 2016 20:37 - CONCLUSION: 1. No acute intracranial abnormality. 2. 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 There is paranasal sinusitis as well, ethmoid and left sphenoid predominant Sunny Zamarripa MD Abdomen/Pelvis CT 12/16/16 0000 Signed Impressions: Service Date/Time: Friday, December 16, 2016 20:42 - CONCLUSION: 1. Noncontrast CT concerning for hepatic metastatic disease. Also suspected metastatic disease or renal failure associated changes of the bones. 2. No obstruction or acute inflammatory changes seen of the gastrointestinal tract. I don't convincingly see a GI tract mass. 3. Stable low and intermediate attenuation masses of both kidneys. Please see above. 4. Right greater the left consolidation and pleural fluid of the visualized lung bases. Sunny Zamarripa MD . (SUKHDEV GERARD [facility]) Assessment and Plan Disease Oriented Problem List: (1) Bilateral lower leg cellulitis (2) Bilateral lower extremity edema (3) DOLORES (acute kidney injury) (4) Diabetes type 2, uncontrolled (5) Metastatic disease (6) GI bleed (7) HTN (hypertension) (8) Mastoiditis (9) Weakness (10) UTI (urinary tract infection) (11) GERD (gastroesophageal reflux disease) (12) Anemia Symptom Scale: (1) Generalized weakness 0-10 Scale: Unable to quantify (2) Lethargy 0-10 Scale: 0 (3) Altered mental status 0-10 Scale: 0 Comment: improved (4) Abdominal pain 0-10 Scale: 5 Pertinent Non-Medical Issues Psychosocial: . 1 daughter. Spiritual: Adventism. Legal: Standard Living Will scanned into EMR completed 11/14/16, names his , Che Luna as designated health care surrogate. Ethical issues impacting care: none identified. . Important Contacts * Che Luna, / HCS: * Christy Allen, daughter: -resides in [place]. . Prognosis Mr. Munson is a 71 y/ morbid obese male with a medical history of DM type 2, HTN, chronic kidney disease, anemia, BPH and asthma with persistent GI bleed requiring transfusions and ongoing decline. Recent hospitalization for DKA, sepsis and severe anemia. Now found to have what appears to be mets disease to the liver, GI bleed refusing colonoscopy. Based on his pre-existing functional status and multiple acute/chronic comorbid illnesses, encephalopathy and infection patient is at high risk for complications, further decline and . . Code Status: No Code Plan * Standard Living Will scanned into EMR completed 11/14/16, names his , Che Luna as designated health care surrogate. * NO CODE - [place] DNR signed by patient scanned into EMR dated 11/13/16. 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 He does not want chemotherapy. He was comfort focused care with hospice support. He does not want to suffer at end of life. He is frustrated having to wait for pain medication. He wants to go to hospice care center. * Symptoms: Weakness, multifactorial due to profound physical deconditioning and chronic comorbid illnesses. Altered mental status: possibly related to infection, general decline, malignancy? Lethargy: likely multifactorial, infection, decline and possible malignancy. Abdominal pain: Reviewed medication with hospice nurse, recommend starting low dose Methadone upon transfer and continuation of PRN Dilaudid for BTP. * Palliative care will continue to follow-up with this patient for further clarification of goals of care. (SUKHDEV GERARD) Attestation To help prompt me to consider important information that might be impacting today's encounter and assessment, information from prior notes written by myself or my colleagues may have been "brought forward" into today's note. My signature on this note, however, is an attestation that I personally performed the exam, history, and/or decision-making noted today, and, unless otherwise indicated, the interactions with patient, family, and staff as well as the review of records all occurred today. I also attest that the listed assessment and stated plan reflect my best clinical judgment today based on the combination of historical information, prior notes, and today's exam/ interactions. When time spent is documented, it refers only to time spent today by the signer, or if indicated, combined time spent today by collaborating physician/nurse practitioner. (SUKHDEV GERARD) Collaborating MD Comments Chart reviewed. Case discussed with palliative care TRAY DELIVERY AIDE. Above TRAY DELIVERY AIDE note reviewed and I concur. . (Flaquito Garnica MD) SUKHDEV GERARD Dec 20, 2016 16:26 Flaquito Garnica MD Jan 19, 2017 08:11
--- NOTE | 2016-12-20 16:56 | HHI.DS ---
Discharge Summary Admission Date Dec 16, 2016 at 21:03 Discharge Date: Dec 20, 2016 Admitting Diagnosis sepsis, AMS, anemia (1) Acute on chronic renal insufficiency (2) [id number] renal failure (3) Malignant hypertension (4) Urinary retention (5) Anemia (6) Metastatic disease (7) Bilateral lower extremity edema (8) Bilateral lower leg cellulitis (9) Lethargy Brief History 71 Y CM. RECURRENT ADMITS AND NONCOMPLIANCE WITH CARE. PT HAS HAD ONGOING LEG CELLULITIS DUE TO MASSIVE EDEMA FROM REFUSAL TO ELEVATE LEGS. PT REFUSED GI WORKUPS. RECURRENT ANEMIA WITH GIB AND TRANSFUSION OF PRBC'S. PT HAS BEEN AT [facility] AND HAS HAD A GENERALIZED DECLINE. AMS NOTED AT THE [facility] AND LABS AT [facility] SHOWED HGB 6 APPROX AND PT SENT TO ER FOR TRANSFUSION. PT FOUND W METS DZ AND LYTE ABNORMALITIES, PNA AND UTI. RECENT ONGOING C DIF WELL. I WAS CALLED FOR ADMISSION TO THE ICU. CBC/BMP: 12/20/16 0446 12/20/16 0446 Significant Findings Laboratory Tests Test 12/18/16 12/19/16 12/19/16 12/20/16 08:25 05:35 12:10 04:46 Red Blood Count 2.83 MIL/MM3 2.51 MIL/MM3 2.70 MIL/MM3 (4.50-5.90) (4.50-5.90) (4.50-5.90) Hemoglobin 8.0 GM/DL 7.2 GM/DL 7.7 GM/DL (13.0-17.0) (13.0-17.0) (13.0-17.0) Hematocrit 24.7 % 22.3 % 23.4 % (39.0-51.0) (39.0-51.0) (39.0-51.0) Red Cell Distribution Width 18.6 % 18.3 % 18.6 % (11.6-17.2) (11.6-17.2) (11.6-17.2) Platelet Count 136 TH/MM3 125 TH/MM3 132 TH/MM3 (150-450) (150-450) (150-450) Neutrophils (%) (Auto) 74.4 % 76.1 % 78.2 % (16.0-70.0) (16.0-70.0) (16.0-70.0) Neutrophils % (Manual) 73 % (16-70) Band Neutrophils % 8 % (0-6) 28 % (0-6) Lymphocytes % 5 % (9-44) 8 % (9-44) Eosinophils % 5 % (0-4) 6 % (0-4) 6 % (0-4) Neutrophils # (Manual) 8.3 TH/MM3 (1.8-7.7) Metamyelocytes 3 % (0-1) 2 % (0-1) 5 % (0-1) Myelocytes 2 % (0-0) 2 % (0-0) Nucleated Red Blood Cells 3 /100 WBC 3 /100 WBC 1 /100 WBC (0-0) (0-0) (0-0) Platelet Estimate LOW (NORMAL) LOW (NORMAL) LOW (NORMAL) Blood Urea Nitrogen 64 MG/DL (7-18) 62 MG/DL (7-18) 51 MG/DL (7-18) Creatinine 2.08 MG/DL 2.27 MG/DL 2.19 MG/DL (0.60-1.30) (0.60-1.30) (0.60-1.30) Estimat Glomerular Filtration 32 ML/MIN (>89) 29 ML/MIN (>89) 30 ML/MIN (>89) Rate Random Glucose 260 MG/DL 341 MG/DL 232 MG/DL (74-106) (74-106) (74-106) Calcium Level 7.9 MG/DL 8.1 MG/DL 8.2 MG/DL (8.5-10.1) (8.5-10.1) (8.5-10.1) Ammonia 33 MCMOL/L (11-32) Lactate Dehydrogenase 858 U/L (87-241) Platelet Morphology Comment ENLARGED (NORMAL) Prothrombin Time 14.7 SEC (9.8-11.6) Potassium Level 3.2 MEQ/L (3.5-5.1) PE at Discharge GENERAL: SKIN: Warm and dry. CELLULITIC STASIS CHANGES BLE HEAD: Atraumatic. Normocephalic. EYES: Pupils equal and round. No scleral icterus. No injection or drainage. ENT: No nasal bleeding or discharge. Mucous membranes pink and moist. NECK: Trachea midline. No JVD. CARDIOVASCULAR: Regular rate and rhythm. RESPIRATORY: No accessory muscle use. Clear to auscultation. Breath sounds equal bilaterally. GASTROINTESTINAL: Abdomen soft, non-tender, nondistended. Hepatic and splenic margins not palpable. MUSCULOSKELETAL: Extremities without clubbing, cyanosis, or edema. No obvious deformities. NEUROLOGICAL: Awake and alert. No obvious cranial nerve deficits. Motor grossly within normal limits. 1 out of 5 muscle strength in the arms and legs. Normal speech. PSYCHIATRIC: Appropriate mood and affect; insight and judgment normal. Hospital Course 71 Y CM, ADMIT WITH THE ABOVE. FOUND W METS TO LIVER. PT AND GF REQUEST HOSPICE CARE CNTR Pt Condition on Discharge: Stable Discharge Disposition: Hospice/Med Facility Discharge Instructions DIET: Follow Instructions for: As Tolerated, No Restrictions Activities you can perform: Weight Bearing as Jayashree Yon Stallings MD Dec 20, 2016 16:56
[2016-12-20 20:00] VITALS: BP 137/64; PULSE 94; RESP 16; TEMP 99.3; O2SAT 94
== END 2016-12-20 21:04 | disposition hospice, inpatient (51) | DRG 435 ==
LOC: NEPA 19:31 → NEDA 21:03 → N03B 12-17 02:56 → N04A 12-17 16:33
PROVIDERS: ADMIT Family Medicine; ATTEND Family Medicine
PROC: 30233N1 Transfusion of Nonautologous Red Blood Cells into Peripheral Vein, Percutaneous Approach (ICD-10-PCS; principal; 2016-12-16)
PROC: 0FB03ZX Excision of Liver, Percutaneous Approach, Diagnostic (ICD-10-PCS; 2016-12-18)
PROC: 0T2BX0Z Change Drainage Device in Bladder, External Approach (ICD-10-PCS; 2016-12-19)
DX: C78.7 Secondary malignant neoplasm of liver and intrahepatic bile duct (principal); J18.9 Pneumonia, unspecified organism; N17.9 Acute kidney failure, unspecified; C79.00 Secondary malignant neoplasm of unspecified kidney and renal pelvis; E11.22 Type 2 diabetes mellitus with diabetic chronic kidney disease; A04.7 Enterocolitis due to Clostridium difficile; L03.115 Cellulitis of right lower limb; C80.1 Malignant (primary) neoplasm, unspecified; N39.0 Urinary tract infection, site not specified; I87.339 Chronic venous hypertension (idiopathic) with ulcer and inflammation of unspecified lower extremity; L03.116 Cellulitis of left lower limb; E66.01 Morbid (severe) obesity due to excess calories; H70.12 Chronic mastoiditis, left ear; N28.89 Other specified disorders of kidney and ureter; E78.5 Hyperlipidemia, unspecified; I12.9 Hypertensive chronic kidney disease with stage 1 through stage 4 chronic kidney disease, or unspecified chronic kidney disease; N18.9 Chronic kidney disease, unspecified; J45.909 Unspecified asthma, uncomplicated; M19.90 Unspecified osteoarthritis, unspecified site; K21.9 Gastro-esophageal reflux disease without esophagitis; E78.00 Pure hypercholesterolemia, unspecified; Z79.4 Long term (current) use of insulin; E11.65 Type 2 diabetes mellitus with hyperglycemia; N32.0 Bladder-neck obstruction; Z91.19 Patient's noncompliance with other medical treatment and regimen; Z88.1 Allergy status to other antibiotic agents; Z88.7 Allergy status to serum and vaccine; Z88.9 Allergy status to unspecified drugs, medicaments and biological substances; R62.7 Adult failure to thrive; D50.0 Iron deficiency anemia secondary to blood loss (chronic); Y95 Nosocomial condition; D63.8 Anemia in other chronic diseases classified elsewhere; I25.10 Atherosclerotic heart disease of native coronary artery without angina pectoris; F32.9 Major depressive disorder, single episode, unspecified; N40.1 Benign prostatic hyperplasia with lower urinary tract symptoms; G62.9 Polyneuropathy, unspecified; R74.8 Abnormal levels of other serum enzymes; Z51.5 Encounter for palliative care; E87.70 Fluid overload, unspecified; Z66 Do not resuscitate; R63.4 Abnormal weight loss
CPT/HCPCS: 36430; 47000; 70450; 71010; 71250; 74176; 77012; 80048; 80053; 81001; 82105; 82140; 82378; 82948; 83605; 83615; 83690; 85007; 85027; 85610; 85730; 86301; 86850; 86900; 86901; 86920; 87040; 87077; 87086; 87186; 87493; 88307; 88341; 88342; 94640; 94664; 96365; C9113; J0696; J1815; J2250; J2405; J2543; J3010; J7030; J7050; P9016